=== PATIENT | male | born 1935 | race Caucasian/White ===

== ENCOUNTER → 2020-06-14 15:31 | Outpatient (BNVA) | payer MEDICARE, SELFPAY | PROVIDERS: PCP Internal Medicine Medical Oncology; Visit Provider Internal Medicine | DX: I48.20 Chronic atrial fibrillation, unspecified (principal); Z51.81 Encounter for therapeutic drug level monitoring; Z79.01 Long term (current) use of anticoagulants | CPT/HCPCS: 85610; 99211 ==

== ENCOUNTER → 2020-06-28 10:54 | Outpatient (BNVA) | payer MEDICARE, SELFPAY | PROVIDERS: PCP Internal Medicine Medical Oncology; Visit Provider Internal Medicine | DX: I48.20 Chronic atrial fibrillation, unspecified (principal); Z51.81 Encounter for therapeutic drug level monitoring; Z79.01 Long term (current) use of anticoagulants | CPT/HCPCS: 85610; 99211 ==

== ENCOUNTER → 2020-07-05 09:15 | Outpatient (BNVA) | payer MEDICARE, SELFPAY | PROVIDERS: PCP Internal Medicine Medical Oncology; Visit Provider Internal Medicine | DX: I48.20 Chronic atrial fibrillation, unspecified (principal); Z51.81 Encounter for therapeutic drug level monitoring; Z79.01 Long term (current) use of anticoagulants | CPT/HCPCS: 85610; 99211 ==

== ENCOUNTER → 2020-07-10 08:24 | Outpatient (REF) | payer MEDICARE, SELFPAY ==
--- NOTE | 2020-07-10 08:30 | CA_ITS ---
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 Normal LV systolic function with mild LVH with impaired relaxation filling pattern with elevated filling pressures 2. Bioprosthetic aortic valve present, leaflets not well visualized. Mean gradient 15 mm Hg with mild paravalvular regurgitation. Unchanged from before 3. Moderate biatrial enlargement 4. Normal RV systolic pressure 5. No pericardial effusion Findings Left Ventricle Normal left ventricular size and systolic function. There is mildly increased left ventricular wall thickness. The visually estimated ejection fraction is between 60-65%. There is paradoxical septal motion consistent with a right ventricular pacemaker. Spectral Doppler is indicative of an impaired relaxation filling pattern. Elevated filling pressures. E/E prime ratio is >15, consistent with elevated filling pressures. Right Ventricle Mildly increased right ventricular cavity size. There is normal right ventricular systolic function. There is a pacemaker wire seen in the right ventricle. Atria The left atrium is moderately dilated. Interatrial shunt cannot be excluded. The right atrium is moderately dilated. A pacemaker wire is identified in the right atrium. Aortic Valve A bioprosthetic aortic valve is present. The aortic valve was not well visualized. The peak aortic gradient is 26 mmHg.The mean gradient is 15 mmHg. The aortic valve area is 1.88 cm2. There is mild aortic valve regurgitation. the bioprosthetic valve is not well visualized, the valve is well seated with no abnormal rocking motion. There is mild regurgitation noted which is paravalvular in nature. The mean gradient across as the bioprosthetic valve is 15 mm of mercury, this is slightly elevated for bioprosthetic valve, may suggest patient prosthesis mismatch. Mitral Valve There is moderate anterior and severe posterior mitral leaflet thickening. There is severe mitral annular calcification. There is no mitral valve regurgitation. mild mitral stenosis cannot be entirely ruled out on this study Pulmonic Valve The pulmonic valve was not well visualized. Tricuspid Valve Likely normal tricuspid valve structure and function. There is mild tricuspid valve regurgitation. The right ventricular systolic pressure is normal. The right ventricular systolic pressure is 32 mmHg. Normal right atrial pressure. There is no evidence of pulmonary hypertension. Great Vessels All visible segments of the aorta are normal in size. The pulmonary artery was not well visualized. Venous The inferior vena cava is normal in size and collapses greater than 50% with inspiration. Pericardium/Pleural There is no evidence of pericardial effusion. Prior Study Comparison No significant change compared to prior study dated: 04/14/2020. Measurements 2D Linear Measurements IVSd: 1.20 0.6-0.9/0.6-1.0 cm LVIDd: 4.63 3.9-5.3/4.2-5.9 cm LVIDd Index: 2.50 2.4-3.2/2.2-3.1 cm/m2 LVIDs: 3.08 2.0-3.6 cm LVPWd: 1.20 0.7-1.1 cm Ao Root: 2.80 2.1-3.5 cm LA Diam: 3.80 2.7-3.8/3.0-4.0 cm LAIDs Index: 2.05 1.5-2.3 cm/m2 LV Mass: 258.10 67-162/88-224 g LV Mass Index: 139.52 43-95/49-115 g/m2 LVOT Diam: 2.00 3.0+(-)1.3 cm 2D Systolic Function EF 4C: 64.40 >55% EF 2C: 58.80 >55% EF BiP: 61.30 >55% Mitral Valve MV VTI: 0.57 MV Pk Miky: 1.85 MV Mn Miky: 1.04 MV Pk Grad: 14.00 MV Mn Grad: 5.00 MV Pk E: 1.00 MV PK A: 1.62 MV Decel Time: 232.00 E/A: 0.60 E'Lateral: 6.09 E'Medial: 4.74 E/E' Med: 21.10 E/E' Lat: 16.40 PHT: 95.00 MVA PHT: 2.32 MVA Continuity: 1.99 Decel [place]: 3.67 Aortic Valve AoV Pk Miky: 2.55 AoV Mn Miky: 1.79 AoV VTI: 0.61 AoV Pk Grad: 26.00 Aov Mn Grad: 15.00 KAVITA Cont.VTI: 1.88 LVOT LVOT Pk Miky: 1.56 LVOT Mn Miky: 1.16 LVOT VTI: 0.36 LVOT Pk Grad: 10.00 LVOT Mn Grad: 6.00 LVOT Diam: 2.00 LVOT Area: 3.14 Diastolic Function MV Pk E: 1.00 MV Pk A: 1.62 E/A: 0.60 E'Medial: 4.74 E/E' Med: 21.10 E' Laterial: 6.09 E/E' Lat: 16.40 Tricuspid Valve TR Pk Miky: 2.71 TR Pk Grad: 29.00 RA Press: 3.00 RVSP: 32.00 Great Vessels Aorta Ao Root-2D: 2.80 2.0-3.7 cm Ao Asc: 3.00 2.1-3.4 cm Pulmonary Valve PV Pk Miky: 1.38 Peak PV Grad: 8.00 Updated in Other Vendor System with Status of Final Miguel Zavala MD electronically signed on 07/11/2020 6:00:04 PM with status of Final
== END ==
LOC: HO.CARD 08:24
PROVIDERS: PCP Internal Medicine Medical Oncology; Visit Provider Internal Medicine Cardiovascular Disease
DX: T82.03XD Leakage of heart valve prosthesis, subsequent encounter (principal)
CPT/HCPCS: 93306

== ENCOUNTER 2020-07-24 12:11 | Outpatient (REF) | payer MEDICARE, SELFPAY ==
[2020-07-24 12:44] VITALS: BP 165/72; PULSE 81; RESP 16; O2SAT 98
[2020-07-24 12:47] VITALS: BMI 23.3
== END 2020-07-24 12:12 | disposition home or self-care (01) ==
LOC: HO.MS 12:11
PROVIDERS: PCP Internal Medicine Medical Oncology; Visit Provider Ophthalmology
PROC: (CPT 66821; principal; 2020-07-24 14:20)
DX: H26.491 Other secondary cataract, right eye (principal); H53.8 Other visual disturbances; I10 Essential (primary) hypertension; Z96.1 Presence of intraocular lens; Z95.0 Presence of cardiac pacemaker; Z95.3 Presence of xenogenic heart valve; Z79.01 Long term (current) use of anticoagulants; Z87.891 Personal history of nicotine dependence; Z79.899 Other long term (current) drug therapy; Z88.2 Allergy status to sulfonamides
CPT/HCPCS: 66821

== ENCOUNTER → 2020-07-26 13:56 | Outpatient (BNVA) | payer MEDICARE, SELFPAY | PROVIDERS: PCP Internal Medicine Medical Oncology; Visit Provider Internal Medicine | DX: I48.20 Chronic atrial fibrillation, unspecified (principal); Z51.81 Encounter for therapeutic drug level monitoring; Z79.01 Long term (current) use of anticoagulants | CPT/HCPCS: 85610; 99211 ==

== ENCOUNTER → 2020-07-31 14:56 | Outpatient (BNVA) | payer MEDICARE, SELFPAY | PROVIDERS: PCP Internal Medicine Medical Oncology; Visit Provider Internal Medicine Cardiovascular Disease | DX: I48.20 Chronic atrial fibrillation, unspecified (principal); I25.10 Atherosclerotic heart disease of native coronary artery without angina pectoris; Z95.2 Presence of prosthetic heart valve; T82.03XD Leakage of heart valve prosthesis, subsequent encounter | CPT/HCPCS: 99212 ==

== ENCOUNTER → 2020-08-09 08:55 | Outpatient (BNVA) | payer MEDICARE, SELFPAY | PROVIDERS: PCP Internal Medicine Medical Oncology; Visit Provider Internal Medicine | DX: I48.20 Chronic atrial fibrillation, unspecified (principal); Z51.81 Encounter for therapeutic drug level monitoring; Z79.01 Long term (current) use of anticoagulants | CPT/HCPCS: 85610; 99211 ==

== ENCOUNTER 2020-12-25 10:01 | Outpatient (REF) | payer MEDICARE, SELFPAY ==
[2020-12-25 11:02] LABS: MANUAL DIFF FLAG NO
[2020-12-25 11:12] LABS: Basophils Percent Auto 0.7 % (0-2); Eosinophils Absolute Auto 0.1 X10*3/uL (0.0-0.4); Eosinophils Percent Auto 2.4 % (0-4); Hematocrit 38.3 % (42-52); Hemoglobin 12.3 g/dl (14.0-18.0); Imm Gran Abs Auto 0.02 X10*3/uL (0.00-0.03); Imm Gran Pct Auto 0.3 % (0.0-0.4); Lymphocytes Absolute Auto 1.3 X10*3/uL (1.2-4.9); Lymphocytes Percent Auto 22.6 % (20-40); Mean Corpuscular HGB Conc 32.1 g/dl (31.0-36.0); Mean Corpuscular Hemoglobin 31.3 pg (27.0-33.0); Mean Corpuscular Volume 97.5 fL (80-98); Mean Platelet Volume 10.5 fL (9.4-12.4); Monocytes Absolute Auto 0.6 X10*3/uL (0.1-1.2); Monocytes Percent Auto 9.5 % (2-11); Neutrophils Absolute Auto 3.7 X10*3/uL (2.0-8.3); Neutrophils Percent Auto 64.5 % (45-73); Platelet Count 208 X10*3/uL (160-400); Red Blood Count 3.93 X10*6/uL (4.60-5.80); Red Cell Distribution Width 13.4 % (11.0-16.0); White Blood Count 5.8 X10*3/uL (4.8-10.8)
[2020-12-25 11:30] LABS: Alanine Aminotransferase 27 U/L (0-40); Albumin Level 4.2 g/dL (3.5-5.0); Alkaline Phosphatase 89 U/L (39-117); Anion Gap 13 (12-20); Aspartate Amino Transferase 25 U/L (5-37); Bilirubin Total 0.3 mg/dL (0.0-1.0); Blood Urea Nitrogen 26 mg/dL (9-16); Calcium 9.2 mg/dL (8.4-10.2); Carbon Dioxide 26 mmol/L (22-29); Chloride 107 mmol/L (96-108); Cholesterol 168 mg/dL; Estimated Glomerular Filt Rate 57; Glucose Random 99 mg/dL (60-115); HDL Cholesterol 58 mg/dL; LDL Cholesterol Calculated 94 mg/dl; Potassium 4.8 mmol/L (3.3-5.1); Sodium 141 mmol/L (135-145); Total Protein 6.6 g/dL (6.5-8.0); Triglycerides 82 mg/dL
[2020-12-25 11:47] LABS: Prostate Specific Antigen < 0.05 ng/mL (<0.05-4.0)
== END 2020-12-25 10:02 | disposition home or self-care (01) ==
LOC: HO.LAB 10:01
PROVIDERS: PCP Internal Medicine Medical Oncology; Visit Provider Internal Medicine Medical Oncology
DX: E78.2 Mixed hyperlipidemia (principal); I10 Essential (primary) hypertension; Z12.5 Encounter for screening for malignant neoplasm of prostate
CPT/HCPCS: 36415; 80053; 80061; 84153; 85025

== ENCOUNTER → 2021-01-04 08:07 | Outpatient (BNVA) | payer MEDICARE, SELFPAY | PROVIDERS: PCP Internal Medicine Medical Oncology; Visit Provider Internal Medicine | DX: I48.20 Chronic atrial fibrillation, unspecified (principal); Z51.81 Encounter for therapeutic drug level monitoring; Z79.01 Long term (current) use of anticoagulants | CPT/HCPCS: 85610; 99211 ==

== ENCOUNTER → 2021-01-15 09:56 | Outpatient (BNVA) | payer MEDICARE, SELFPAY | PROVIDERS: PCP Internal Medicine Medical Oncology; Visit Provider Internal Medicine Cardiovascular Disease | DX: I25.10 Atherosclerotic heart disease of native coronary artery without angina pectoris (principal); I48.20 Chronic atrial fibrillation, unspecified; T82.03XD Leakage of heart valve prosthesis, subsequent encounter; Z79.01 Long term (current) use of anticoagulants; Z95.2 Presence of prosthetic heart valve | CPT/HCPCS: 93005; 99212 ==

== ENCOUNTER → 2021-02-01 08:57 | Outpatient (BNVA) | payer MEDICARE, SELFPAY | PROVIDERS: PCP Internal Medicine Medical Oncology; Visit Provider Internal Medicine | DX: I48.20 Chronic atrial fibrillation, unspecified (principal); Z51.81 Encounter for therapeutic drug level monitoring; Z79.01 Long term (current) use of anticoagulants | CPT/HCPCS: 85610; 99211 ==

== ENCOUNTER → 2021-02-20 09:02 | Outpatient (BNVA) | payer MEDICARE, SELFPAY | PROVIDERS: PCP Internal Medicine Medical Oncology; Visit Provider Internal Medicine | DX: I48.20 Chronic atrial fibrillation, unspecified (principal); Z51.81 Encounter for therapeutic drug level monitoring; Z79.01 Long term (current) use of anticoagulants | CPT/HCPCS: 85610; 99211 ==

== ENCOUNTER 2021-03-12 08:05 | Outpatient (REF) | payer MEDICARE, SELFPAY ==
[2021-03-12 08:48] LABS: MANUAL DIFF FLAG NO
[2021-03-12 08:59] LABS: Basophils Percent Auto 0.3 % (0-2); Eosinophils Absolute Auto 0.2 X10*3/uL (0.0-0.4); Eosinophils Percent Auto 2.8 % (0-4); Hematocrit 39.8 % (42-52); Hemoglobin 13.1 g/dl (14.0-18.0); Imm Gran Abs Auto 0.02 X10*3/uL (0.00-0.03); Imm Gran Pct Auto 0.3 % (0.0-0.4); Lymphocytes Absolute Auto 1.1 X10*3/uL (1.2-4.9); Lymphocytes Percent Auto 19.5 % (20-40); Mean Corpuscular HGB Conc 32.9 g/dl (31.0-36.0); Mean Corpuscular Hemoglobin 31.9 pg (27.0-33.0); Mean Corpuscular Volume 96.8 fL (80-98); Mean Platelet Volume 10.7 fL (9.4-12.4); Monocytes Absolute Auto 0.5 X10*3/uL (0.1-1.2); Monocytes Percent Auto 8.7 % (2-11); Neutrophils Absolute Auto 3.9 X10*3/uL (2.0-8.3); Neutrophils Percent Auto 68.4 % (45-73); Platelet Count 183 X10*3/uL (160-400); Red Blood Count 4.11 X10*6/uL (4.60-5.80); Red Cell Distribution Width 12.6 % (11.0-16.0); White Blood Count 5.8 X10*3/uL (4.8-10.8)
[2021-03-12 09:28] LABS: Alanine Aminotransferase 25 U/L (0-40); Albumin Level 4.2 g/dL (3.5-5.0); Alkaline Phosphatase 77 U/L (39-117); Anion Gap 14 (12-20); Aspartate Amino Transferase 26 U/L (5-37); Bilirubin Total 0.7 mg/dL (0.0-1.0); Blood Urea Nitrogen 23 mg/dL (9-16); Calcium 9.5 mg/dL (8.4-10.2); Carbon Dioxide 25 mmol/L (22-29); Chloride 106 mmol/L (96-108); Cholesterol 191 mg/dL; Estimated Glomerular Filt Rate 54; Glucose Fasting 105 mg/dL (60-99); HDL Cholesterol 55 mg/dL; LDL Cholesterol Calculated 106 mg/dl; Potassium 4.7 mmol/L (3.3-5.1); Sodium 140 mmol/L (135-145); Total Protein 6.6 g/dL (6.5-8.0); Triglycerides 151 mg/dL
[2021-03-12 09:54] LABS: Prostate Specific Antigen < 0.05 ng/mL (<0.05-4.0)
== END 2021-03-12 08:06 | disposition home or self-care (01) ==
LOC: HO.LAB 08:05
PROVIDERS: PCP Internal Medicine Medical Oncology; Visit Provider Internal Medicine Medical Oncology
DX: Z12.5 Encounter for screening for malignant neoplasm of prostate (principal); E78.2 Mixed hyperlipidemia; I10 Essential (primary) hypertension
CPT/HCPCS: 36415; 80053; 80061; 84153; 85025

== ENCOUNTER → 2021-03-26 09:20 | Outpatient (BNVA) | payer MEDICARE, SELFPAY | PROVIDERS: PCP Internal Medicine Medical Oncology; Visit Provider Internal Medicine | DX: I48.20 Chronic atrial fibrillation, unspecified (principal); Z51.81 Encounter for therapeutic drug level monitoring; Z79.01 Long term (current) use of anticoagulants | CPT/HCPCS: 85610; 99211 ==

== ENCOUNTER 2021-04-03 07:52 | Outpatient (REF) | payer MEDICARE, SELFPAY ==
[2021-04-03 08:46] LABS: MANUAL DIFF FLAG NO
[2021-04-03 08:50] LABS: Basophils Percent Auto 0.5 % (0-2); Eosinophils Absolute Auto 0.2 X10*3/uL (0.0-0.4); Eosinophils Percent Auto 4.2 % (0-4); Hematocrit 40.2 % (42-52); Hemoglobin 13.3 g/dl (14.0-18.0); Imm Gran Abs Auto 0.01 X10*3/uL (0.00-0.03); Imm Gran Pct Auto 0.2 % (0.0-0.4); Lymphocytes Absolute Auto 1.3 X10*3/uL (1.2-4.9); Lymphocytes Percent Auto 22.8 % (20-40); Mean Corpuscular HGB Conc 33.1 g/dl (31.0-36.0); Mean Corpuscular Volume 96.9 fL (80-98); Mean Platelet Volume 10.6 fL (9.4-12.4); Monocytes Absolute Auto 0.5 X10*3/uL (0.1-1.2); Monocytes Percent Auto 9.3 % (2-11); Neutrophils Absolute Auto 3.6 X10*3/uL (2.0-8.3); Platelet Count 186 X10*3/uL (160-400); Red Blood Count 4.15 X10*6/uL (4.60-5.80); Red Cell Distribution Width 12.8 % (11.0-16.0); White Blood Count 5.8 X10*3/uL (4.8-10.8)
[2021-04-03 09:51] LABS: Alanine Aminotransferase 22 U/L (0-40); Albumin Level 4.2 g/dL (3.5-5.0); Alkaline Phosphatase 73 U/L (39-117); Anion Gap 14 (12-20); Aspartate Amino Transferase 25 U/L (5-37); Bilirubin Total 0.7 mg/dL (0.0-1.0); Blood Urea Nitrogen 22 mg/dL (9-16); Calcium 9.6 mg/dL (8.4-10.2); Carbon Dioxide 25 mmol/L (22-29); Chloride 106 mmol/L (96-108); Cholesterol 201 mg/dL; Estimated Glomerular Filt Rate 55; Glucose Fasting 108 mg/dL (60-99); HDL Cholesterol 62 mg/dL; LDL Cholesterol Calculated 111 mg/dl; Potassium 4.7 mmol/L (3.3-5.1); Sodium 140 mmol/L (135-145); Total Protein 6.7 g/dL (6.5-8.0); Triglycerides 141 mg/dL
== END 2021-04-03 07:53 | disposition home or self-care (01) ==
LOC: HO.LAB 07:52
PROVIDERS: PCP Internal Medicine Medical Oncology; Visit Provider Internal Medicine Medical Oncology
DX: I10 Essential (primary) hypertension (principal); E78.2 Mixed hyperlipidemia
CPT/HCPCS: 36415; 80053; 80061; 85025

== ENCOUNTER → 2021-04-24 08:56 | Outpatient (BNVA) | payer MEDICARE, SELFPAY | PROVIDERS: PCP Internal Medicine Medical Oncology; Visit Provider Internal Medicine | DX: I48.20 Chronic atrial fibrillation, unspecified (principal); Z51.81 Encounter for therapeutic drug level monitoring; Z79.01 Long term (current) use of anticoagulants | CPT/HCPCS: 85610; 99211 ==

== ENCOUNTER → 2021-04-30 08:55 | Outpatient (BNVA) | payer MEDICARE, SELFPAY | PROVIDERS: PCP Internal Medicine Medical Oncology; Visit Provider Internal Medicine | DX: I48.20 Chronic atrial fibrillation, unspecified (principal); Z51.81 Encounter for therapeutic drug level monitoring; Z79.01 Long term (current) use of anticoagulants | CPT/HCPCS: 85610; 99211 ==

== ENCOUNTER → 2021-05-02 08:50 | Outpatient (BNVA) | payer MEDICARE, SELFPAY | PROVIDERS: PCP Internal Medicine Medical Oncology; Visit Provider Internal Medicine | DX: I48.20 Chronic atrial fibrillation, unspecified (principal); Z51.81 Encounter for therapeutic drug level monitoring; Z79.01 Long term (current) use of anticoagulants | CPT/HCPCS: 85610; 99211 ==

== ENCOUNTER → 2021-05-16 08:28 | Outpatient (BNVA) | payer MEDICARE, SELFPAY | PROVIDERS: PCP Internal Medicine Medical Oncology; Visit Provider Internal Medicine | DX: I48.20 Chronic atrial fibrillation, unspecified (principal); Z51.81 Encounter for therapeutic drug level monitoring; Z79.01 Long term (current) use of anticoagulants | CPT/HCPCS: 85610; 99211 ==

== ENCOUNTER → 2021-06-05 08:47 | Outpatient (BNVA) | payer MEDICARE, SELFPAY | PROVIDERS: PCP Internal Medicine Medical Oncology; Visit Provider Internal Medicine | DX: I48.20 Chronic atrial fibrillation, unspecified (principal); Z51.81 Encounter for therapeutic drug level monitoring; Z79.01 Long term (current) use of anticoagulants | CPT/HCPCS: 85610; 99211 ==

== ENCOUNTER → 2021-07-03 09:13 | Outpatient (BNVA) | payer MEDICARE, SELFPAY | PROVIDERS: PCP Internal Medicine Medical Oncology; Visit Provider Internal Medicine | DX: I48.20 Chronic atrial fibrillation, unspecified (principal); Z51.81 Encounter for therapeutic drug level monitoring; Z79.01 Long term (current) use of anticoagulants | CPT/HCPCS: 85610; 99211 ==

== ENCOUNTER → 2021-07-17 08:47 | Outpatient (BNVA) | payer MEDICARE, SELFPAY | PROVIDERS: PCP Internal Medicine Medical Oncology; Visit Provider Internal Medicine | DX: I48.20 Chronic atrial fibrillation, unspecified (principal); Z51.81 Encounter for therapeutic drug level monitoring; Z79.01 Long term (current) use of anticoagulants | CPT/HCPCS: 85610; 99211 ==

== ENCOUNTER → 2021-07-20 13:28 | Outpatient (BNVA) | payer MEDICARE, SELFPAY | PROVIDERS: PCP Internal Medicine Medical Oncology; Visit Provider Nurse Practitioner Family | DX: Z45.018 Encounter for adjustment and management of other part of cardiac pacemaker (principal); I25.10 Atherosclerotic heart disease of native coronary artery without angina pectoris; I35.0 Nonrheumatic aortic (valve) stenosis; I48.20 Chronic atrial fibrillation, unspecified; T82.03XD Leakage of heart valve prosthesis, subsequent encounter; Z95.2 Presence of prosthetic heart valve | CPT/HCPCS: 99212 ==

== ENCOUNTER → 2021-08-09 08:49 | Outpatient (BNVA) | payer MEDICARE, SELFPAY | PROVIDERS: PCP Internal Medicine Medical Oncology; Visit Provider Internal Medicine | DX: I48.20 Chronic atrial fibrillation, unspecified (principal); Z51.81 Encounter for therapeutic drug level monitoring; Z79.01 Long term (current) use of anticoagulants | CPT/HCPCS: 85610; 99211 ==

== ENCOUNTER 2021-12-31 08:18 | Outpatient (REF) | payer MEDICARE, SELFPAY ==
[2021-12-31 08:37] LABS: MANUAL DIFF FLAG NO
[2021-12-31 08:42] LABS: Basophils Percent Auto 0.5 % (0-2); Eosinophils Absolute Auto 0.2 X10*3/uL (0.0-0.4); Eosinophils Percent Auto 3.2 % (0-4); Hematocrit 39.7 % (42.0-52.0); Hemoglobin 12.8 g/dl (14.0-18.0); Imm Gran Abs Auto 0.02 X10*3/uL (0.00-0.03); Imm Gran Pct Auto 0.4 % (0.0-0.4); Lymphocytes Absolute Auto 1.2 X10*3/uL (1.2-4.9); Lymphocytes Percent Auto 20.8 % (20-40); Mean Corpuscular HGB Conc 32.2 g/dl (31.0-36.0); Mean Corpuscular Hemoglobin 31.7 pg (27.0-33.0); Mean Corpuscular Volume 98.3 fL (80.0-98.0); Mean Platelet Volume 9.9 fL (9.4-12.4); Monocytes Absolute Auto 0.5 X10*3/uL (0.1-1.2); Monocytes Percent Auto 8.8 % (2-11); Neutrophils Absolute Auto 3.8 x10*3/uL (2.0-8.3); Neutrophils Percent Auto 66.3 % (45-73); Platelet Count 179 X10*3/uL (160-400); Red Blood Count 4.04 X10*6/uL (4.60-5.80); Red Cell Distribution Width 12.8 % (11.0-16.0); White Blood Count 5.7 X10*3/uL (4.8-10.8)
[2021-12-31 10:00] LABS: Alanine Aminotransferase 31 U/L (0-40); Albumin Level 4.1 g/dL (3.5-5.0); Alkaline Phosphatase 66 U/L (39-117); Anion Gap 11 (12-20); Aspartate Amino Transferase 25 U/L (5-37); Bilirubin Total 0.6 mg/dL (0.0-1.0); Blood Urea Nitrogen 24 mg/dL (9-16); Calcium 9.7 mg/dL (8.4-10.2); Carbon Dioxide 27 mmol/L (22-29); Chloride 104 mmol/L (96-108); Cholesterol 185 mg/dL; Estimated Glomerular Filt Rate 56; Glucose Fasting 99 mg/dL (60-99); HDL Cholesterol 61 mg/dL; LDL Cholesterol Calculated 98 mg/dl; Potassium 4.5 mmol/L (3.3-5.1); Sodium 137 mmol/L (135-145); Total Protein 6.6 g/dL (6.5-8.0); Triglycerides 134 mg/dL
[2021-12-31 10:34] LABS: PSA,Total (Free>4and<10) < 0.05 ng/mL (0.00-4.00)
== END 2021-12-31 08:19 | disposition home or self-care (01) ==
LOC: HO.LAB 08:18
PROVIDERS: PCP Internal Medicine Medical Oncology; Visit Provider Internal Medicine Medical Oncology
DX: Z12.5 Encounter for screening for malignant neoplasm of prostate (principal); E78.2 Mixed hyperlipidemia; Z85.46 Personal history of malignant neoplasm of prostate
CPT/HCPCS: 36415; 80053; 80061; 84153; 85025

== ENCOUNTER → 2022-01-14 12:33 | Outpatient (BNVA) | payer MEDICARE, SELFPAY | PROVIDERS: PCP Internal Medicine Medical Oncology; Referring Provider Internal Medicine Medical Oncology; Visit Provider Internal Medicine Cardiovascular Disease | DX: I48.20 Chronic atrial fibrillation, unspecified (principal); T82.03XA Leakage of heart valve prosthesis, initial encounter; Z95.0 Presence of cardiac pacemaker; Z95.2 Presence of prosthetic heart valve; Z51.81 Encounter for therapeutic drug level monitoring; Z79.01 Long term (current) use of anticoagulants | CPT/HCPCS: 85610; 93005; 99211; 99212 ==

== ENCOUNTER → 2022-02-05 09:17 | Outpatient (BNVA) | payer MEDICARE, SELFPAY | PROVIDERS: PCP Internal Medicine Medical Oncology; Visit Provider Internal Medicine | DX: I48.20 Chronic atrial fibrillation, unspecified (principal); Z79.01 Long term (current) use of anticoagulants; Z51.81 Encounter for therapeutic drug level monitoring | CPT/HCPCS: 85610; 99211 ==

== ENCOUNTER → 2022-03-05 08:57 | Outpatient (BNVA) | payer MEDICARE, SELFPAY | PROVIDERS: PCP Internal Medicine Medical Oncology; Visit Provider Internal Medicine | DX: I48.20 Chronic atrial fibrillation, unspecified (principal); Z79.01 Long term (current) use of anticoagulants; Z51.81 Encounter for therapeutic drug level monitoring | CPT/HCPCS: 85610; 99211 ==

== ENCOUNTER 2022-04-02 08:44 | Outpatient (REF) | payer MEDICARE, SELFPAY ==
[2022-04-02 09:05] LABS: MANUAL DIFF FLAG NO
[2022-04-02 09:42] LABS: Basophils Absolute Auto 0.1 X10*3/uL (0.0-0.2); Eosinophils Absolute Auto 0.2 X10*3/uL (0.0-0.4); Eosinophils Percent Auto 4.4 % (0-4); Hematocrit 40.4 % (42.0-52.0); Hemoglobin 13.3 g/dl (14.0-18.0); Imm Gran Abs Auto 0.01 X10*3/uL (0.00-0.03); Imm Gran Pct Auto 0.2 % (0.0-0.4); Lymphocytes Absolute Auto 1.3 X10*3/uL (1.2-4.9); Lymphocytes Percent Auto 26.3 % (20-40); Mean Corpuscular HGB Conc 32.9 g/dl (31.0-36.0); Mean Corpuscular Hemoglobin 32.1 pg (27.0-33.0); Mean Corpuscular Volume 97.6 fL (80.0-98.0); Mean Platelet Volume 10.2 fL (9.4-12.4); Monocytes Absolute Auto 0.6 X10*3/uL (0.1-1.2); Monocytes Percent Auto 11.8 % (2-11); Neutrophils Absolute Auto 2.8 x10*3/uL (2.0-8.3); Neutrophils Percent Auto 56.3 % (45-73); Platelet Count 208 X10*3/uL (160-400); Red Blood Count 4.14 X10*6/uL (4.60-5.80); Red Cell Distribution Width 12.8 % (11.0-16.0)
[2022-04-02 10:07] LABS: Alanine Aminotransferase 24 U/L (0-40); Albumin Level 4.3 g/dL (3.5-5.0); Alkaline Phosphatase 68 U/L (39-117); Anion Gap 13 (12-20); Aspartate Amino Transferase 23 U/L (5-37); Bilirubin Total 0.7 mg/dL (0.0-1.0); Blood Urea Nitrogen 28 mg/dL (9-16); Calcium 9.6 mg/dL (8.4-10.2); Carbon Dioxide 26 mmol/L (22-29); Chloride 105 mmol/L (96-108); Cholesterol 195 mg/dL; Estimated Glomerular Filt Rate 59; Glucose Fasting 114 mg/dL (60-99); HDL Cholesterol 61 mg/dL; LDL Cholesterol Calculated 103 mg/dl; Potassium 4.5 mmol/L (3.3-5.1); Sodium 139 mmol/L (135-145); Total Protein 6.7 g/dL (6.5-8.0); Triglycerides 159 mg/dL
[2022-04-02 10:35] LABS: Prostate Specific Antigen < 0.05 ng/mL (<0.05-4.0)
== END 2022-04-02 08:45 | disposition home or self-care (01) ==
LOC: HO.LAB 08:44
PROVIDERS: PCP Internal Medicine Medical Oncology; Visit Provider Internal Medicine Medical Oncology
DX: Z12.5 Encounter for screening for malignant neoplasm of prostate (principal); I10 Essential (primary) hypertension; E78.2 Mixed hyperlipidemia; Z79.01 Long term (current) use of anticoagulants; Z85.46 Personal history of malignant neoplasm of prostate
CPT/HCPCS: 36415; 80053; 80061; 84153; 85025

== ENCOUNTER → 2022-04-04 09:12 | Outpatient (BNVA) | payer MEDICARE, SELFPAY | PROVIDERS: PCP Internal Medicine Medical Oncology; Visit Provider Internal Medicine | DX: I48.20 Chronic atrial fibrillation, unspecified (principal); Z51.81 Encounter for therapeutic drug level monitoring; Z79.01 Long term (current) use of anticoagulants | CPT/HCPCS: 85610; 99211 ==

== ENCOUNTER → 2022-05-02 08:51 | Outpatient (BNVA) | payer MEDICARE, SELFPAY | PROVIDERS: PCP Internal Medicine Medical Oncology; Visit Provider Internal Medicine | DX: I48.20 Chronic atrial fibrillation, unspecified (principal); Z51.81 Encounter for therapeutic drug level monitoring; Z79.01 Long term (current) use of anticoagulants | CPT/HCPCS: 85610; 99211 ==

== ENCOUNTER → 2022-05-23 13:11 | Outpatient (BNVA) | payer MEDICARE, SELFPAY | PROVIDERS: PCP Internal Medicine Medical Oncology; Visit Provider Internal Medicine | DX: I48.20 Chronic atrial fibrillation, unspecified (principal); Z79.01 Long term (current) use of anticoagulants; Z51.81 Encounter for therapeutic drug level monitoring | CPT/HCPCS: 85610; 99211 ==

== ENCOUNTER → 2022-05-28 09:17 | Outpatient (REF) | payer MEDICARE, SELFPAY ==
--- NOTE | 2022-05-28 09:24 | CA_ITS ---
Transthoracic Echocardiogram Patient (Last, First, Middle): Donny Hale E Gender: Male Date of : 1935 Age: 86 Procedure Date: 05/28/2022 Procedure Type: Transthoracic Echocardiogram Location: OP Height: 175.26 cm Weight: 77.11 kg BSA: 1.93 m2 Heart Rate: bpm BP: 118 / 60 mmHg Drip Molder: Referring MD: Arnaldo Carlson MD Dry Room Operator: Arnaldo Carlson MD Symptoms: T82.03XA - Leakage of heart valve prosthesis, initial encounter Study Quality: Fair ECG Rhythm: Sinus Conclusions: - Normal left ventricular size and systolic function. There is mildly increased left ventricular wall thickness. The visually estimated ejection fraction is between 55-60%. - Mildly increased right ventricular cavity size. There is normal right ventricular systolic function. - A bioprosthetic aortic valve is present. The peak aortic velocity is 2.41 m/s. The mean gradient is 13 mmHg. Mild paravalvular regurgitation is noted. Findings Left Ventricle Normal left ventricular size and systolic function. There is mildly increased left ventricular wall thickness. The visually estimated ejection fraction is between 55-60%. There is no evidence of regional wall motion abnormalities. Diastolic function is indeterminate on the basis of available data. Right Ventricle Mildly increased right ventricular cavity size. There is normal right ventricular systolic function. There is a pacemaker wire seen in the right ventricle. Atria The left atrium is severely dilated. Aortic Valve A bioprosthetic aortic valve is present. The peak aortic velocity is 2.41 m/s. The mean gradient is 13 mmHg. Mild paravalvular regurgitation is noted. Mitral Valve There is severe mitral annular calcification. There is mild mitral valve regurgitation. There is no mitral valve stenosis. Pulmonic Valve Normal pulmonic valve structure and function. There is trace pulmonic valve regurgitation. Tricuspid Valve Normal tricuspid valve structure. There is mild tricuspid valve regurgitation. Normal right atrial pressure. There is no evidence of pulmonary hypertension. Great Vessels All visible segments of the aorta are normal in size. The visualized portions of the pulmonary artery and branches are normal. Venous The inferior vena cava is normal in size and collapses greater than 50% with inspiration. Pericardium/Pleural There is no evidence of pericardial effusion. Prior Study Comparison Changes noted compared to prior study. RV mildly dilated. No significant change in the paravalvular leak. Measurements 2D Linear Measurements IVSd: 1.25 0.6-0.9/0.6-1.0 cm LVIDd: 4.97 3.9-5.3/4.2-5.9 cm LVIDd Index: 2.58 2.4-3.2/2.2-3.1 cm/m2 LVIDs: 3.35 2.0-3.6 cm LVPWd: 1.23 0.7-1.1 cm Ao Root: 3.00 2.1-3.5 cm LA Diam: 4.30 2.7-3.8/3.0-4.0 cm LAIDs Index: 2.23 1.5-2.3 cm/m2 LV Mass: 302.36 67-162/88-224 g LV Mass Index: 156.66 43-95/49-115 g/m2 LVOT Diam: 2.00 3.0+(-)1.3 cm Mitral Valve MV VTI: 0.62 MV Pk Miky: 1.46 MV Mn Miky: 0.80 MV Pk Grad: 9.00 MV Mn Grad: 3.00 MV Pk E: 1.14 MV PK A: 1.44 MV Decel Time: 345.00 E/A: 0.80 E'Lateral: 4.68 E'Medial: 4.03 E/E' Med: 28.30 E/E' Lat: 24.40 PHT: 101.00 MVA PHT: 2.18 MVA Continuity: 1.56 Decel [place]: 3.30 Aortic Valve AoV Pk Miky: 2.41 AoV Mn Miky: 1.65 AoV VTI: 0.59 AoV Pk Grad: 23.00 Aov Mn Grad: 13.00 KAVITA Cont.VTI: 1.63 LVOT LVOT Pk Miky: 1.20 LVOT Mn Miky: 0.81 LVOT VTI: 0.31 LVOT Pk Grad: 6.00 LVOT Mn Grad: 3.00 LVOT Diam: 2.00 LVOT Area: 3.14 Diastolic Function MV Pk E: 1.14 MV Pk A: 1.44 E/A: 0.80 E'Medial: 4.03 E/E' Med: 28.30 E' Laterial: 4.68 E/E' Lat: 24.40 Right Ventricle TAPSE (mm): 33.00 TVS' Miky: 13.00 Tricuspid Valve TR Pk Miky: 2.49 TR Pk Grad: 25.00 RA Press: 3.00 RVSP: 28.00 Great Vessels Aorta Ao Root-2D: 3.00 2.0-3.7 cm Ao Asc: 3.30 2.1-3.4 cm Pulmonary Valve PV Pk Miky: 1.11 Peak PV Grad: 5.00 Updated in Other Vendor System with Status of Final Arnaldo Carlson MD electronically signed on 05/30/2022 7:48:29 PM with status of Final
== END ==
LOC: HO.CARD 09:17
PROVIDERS: Visit Provider Internal Medicine Cardiovascular Disease
DX: T82.03XA Leakage of heart valve prosthesis, initial encounter (principal)
CPT/HCPCS: 93306

== ENCOUNTER → 2022-06-20 14:23 | Outpatient (BNVA) | payer MEDICARE, SELFPAY | PROVIDERS: PCP Internal Medicine Medical Oncology; Referring Provider Internal Medicine Medical Oncology; Visit Provider Internal Medicine Cardiovascular Disease | DX: I25.10 Atherosclerotic heart disease of native coronary artery without angina pectoris (principal); I48.20 Chronic atrial fibrillation, unspecified; T82.03XD Leakage of heart valve prosthesis, subsequent encounter; Z95.2 Presence of prosthetic heart valve; Z95.0 Presence of cardiac pacemaker | CPT/HCPCS: 99212 ==

== ENCOUNTER → 2022-07-03 08:57 | Outpatient (BNVA) | payer MEDICARE, SELFPAY | PROVIDERS: PCP Internal Medicine Medical Oncology; Visit Provider Internal Medicine | DX: I48.20 Chronic atrial fibrillation, unspecified (principal); Z79.01 Long term (current) use of anticoagulants; Z51.81 Encounter for therapeutic drug level monitoring | CPT/HCPCS: 85610; 99211 ==

== ENCOUNTER 2022-07-08 09:00 | Outpatient (REF) | payer MEDICARE, SELFPAY ==
[2022-07-08 09:12] LABS: MANUAL DIFF FLAG NO
[2022-07-08 10:13] LABS: Basophils Percent Auto 0.7 % (0-2); Eosinophils Absolute Auto 0.2 X10*3/uL (0.0-0.4); Eosinophils Percent Auto 2.8 % (0-4); Hematocrit 43.3 % (42.0-52.0); Imm Gran Abs Auto 0.03 X10*3/uL (0.00-0.03); Imm Gran Pct Auto 0.5 % (0.0-0.4); Lymphocytes Absolute Auto 1.4 X10*3/uL (1.2-4.9); Lymphocytes Percent Auto 22.2 % (20-40); Mean Corpuscular HGB Conc 32.3 g/dl (31.0-36.0); Mean Corpuscular Hemoglobin 31.5 pg (27.0-33.0); Mean Corpuscular Volume 97.3 fL (80.0-98.0); Mean Platelet Volume 10.3 fL (9.4-12.4); Monocytes Absolute Auto 0.5 X10*3/uL (0.1-1.2); Monocytes Percent Auto 8.7 % (2-11); Neutrophils Percent Auto 65.1 % (45-73); Platelet Count 230 X10*3/uL (160-400); Red Blood Count 4.45 X10*6/uL (4.60-5.80); Red Cell Distribution Width 12.5 % (11.0-16.0); White Blood Count 6.1 X10*3/uL (4.8-10.8)
[2022-07-08 10:34] LABS: Alanine Aminotransferase 34 U/L (0-40); Albumin Level 4.5 g/dL (3.5-5.0); Alkaline Phosphatase 83 U/L (39-117); Anion Gap 15 (12-20); Aspartate Amino Transferase 33 U/L (5-37); Bilirubin Total 0.4 mg/dL (0.0-1.0); Blood Urea Nitrogen 25 mg/dL (9-16); Calcium 9.8 mg/dL (8.4-10.2); Carbon Dioxide 25 mmol/L (22-29); Chloride 103 mmol/L (96-108); Cholesterol 238 mg/dL; Estimated Glomerular Filt Rate 56; Glucose Fasting 103 mg/dL (60-99); HDL Cholesterol 67 mg/dL; LDL Cholesterol Calculated 132 mg/dl; Potassium 4.8 mmol/L (3.3-5.1); Sodium 138 mmol/L (135-145); Total Protein 7.2 g/dL (6.5-8.0); Triglycerides 199 mg/dL
[2022-07-08 10:58] LABS: Prostate Specific Antigen < 0.10 ng/mL (<0.05-4.0)
== END 2022-07-08 09:01 | disposition home or self-care (01) ==
LOC: HO.LAB 09:00
PROVIDERS: PCP Internal Medicine Medical Oncology; Visit Provider Internal Medicine Medical Oncology
DX: I10 Essential (primary) hypertension (principal); E78.2 Mixed hyperlipidemia; Z85.46 Personal history of malignant neoplasm of prostate; Z12.5 Encounter for screening for malignant neoplasm of prostate
CPT/HCPCS: 36415; 80053; 80061; 84153; 85025

== ENCOUNTER → 2022-07-29 09:05 | Outpatient (BNVA) | payer MEDICARE, SELFPAY | PROVIDERS: PCP Internal Medicine Medical Oncology; Visit Provider Internal Medicine | DX: I48.20 Chronic atrial fibrillation, unspecified (principal); Z79.01 Long term (current) use of anticoagulants; Z51.81 Encounter for therapeutic drug level monitoring | CPT/HCPCS: 85610; 99211 ==

== ENCOUNTER → 2023-01-07 08:51 | Outpatient (BNVA) | payer MEDICARE, SELFPAY | PROVIDERS: PCP Internal Medicine Medical Oncology; Visit Provider Internal Medicine | DX: I48.20 Chronic atrial fibrillation, unspecified (principal); Z79.01 Long term (current) use of anticoagulants; Z51.81 Encounter for therapeutic drug level monitoring | CPT/HCPCS: 85610; 99211 ==

== ENCOUNTER 2023-01-16 09:21 | Outpatient (REF) | payer MEDICARE, SELFPAY ==
[2023-01-16 09:31] LABS: MANUAL DIFF FLAG NO
[2023-01-16 10:00] LABS: Basophils Percent Auto 0.5 % (0-2); Eosinophils Absolute Auto 0.2 X10*3/uL (0.0-0.4); Eosinophils Percent Auto 2.2 % (0-4); Hemoglobin 13.5 g/dl (14.0-18.0); Imm Gran Abs Auto 0.04 X10*3/uL (0.00-0.03); Imm Gran Pct Auto 0.5 % (0.0-0.4); Lymphocytes Absolute Auto 1.4 X10*3/uL (1.2-4.9); Lymphocytes Percent Auto 19.3 % (20-40); Mean Corpuscular HGB Conc 32.9 g/dl (31.0-36.0); Mean Corpuscular Volume 97.2 fL (80.0-98.0); Mean Platelet Volume 10.3 fL (9.4-12.4); Monocytes Absolute Auto 0.6 X10*3/uL (0.1-1.2); Monocytes Percent Auto 8.5 % (2-11); Platelet Count 220 X10*3/uL (160-400); Red Blood Count 4.22 X10*6/uL (4.60-5.80); White Blood Count 7.3 X10*3/uL (4.8-10.8)
[2023-01-16 10:34] LABS: Alanine Aminotransferase 31 U/L (0-40); Albumin Level 4.1 g/dL (3.5-5.0); Alkaline Phosphatase 90 U/L (39-117); Anion Gap 14 (12-20); Aspartate Amino Transferase 34 U/L (5-37); Bilirubin Total 0.6 mg/dL (0.0-1.0); Blood Urea Nitrogen 20 mg/dL (9-16); Calcium 9.7 mg/dL (8.4-10.2); Carbon Dioxide 25 mmol/L (22-29); Chloride 106 mmol/L (96-108); Cholesterol 207 mg/dL; Estimated Glomerular Filt Rate 52; Glucose Fasting 100 mg/dL (60-99); HDL Cholesterol 55 mg/dL; LDL Cholesterol Calculated 120 mg/dl; Potassium 4.8 mmol/L (3.3-5.1); Sodium 140 mmol/L (135-145); Total Protein 6.8 g/dL (6.5-8.0); Triglycerides 164 mg/dL
[2023-01-16 10:53] LABS: Prostate Specific Antigen < 0.10 ng/mL (<0.05-4.0)
== END 2023-01-16 09:22 | disposition home or self-care (01) ==
LOC: HO.LAB 09:21
PROVIDERS: PCP Internal Medicine Medical Oncology; Visit Provider Internal Medicine Medical Oncology
DX: E78.2 Mixed hyperlipidemia (principal); Z85.46 Personal history of malignant neoplasm of prostate; I10 Essential (primary) hypertension; Z12.5 Encounter for screening for malignant neoplasm of prostate
CPT/HCPCS: 36415; 80053; 80061; 84153; 85025

== ENCOUNTER → 2023-01-29 11:32 | Outpatient (BNVA) | payer MEDICARE, SELFPAY | PROVIDERS: PCP Internal Medicine Medical Oncology; Referring Provider Internal Medicine Medical Oncology; Visit Provider Internal Medicine Cardiovascular Disease | DX: I25.10 Atherosclerotic heart disease of native coronary artery without angina pectoris (principal); T82.03XA Leakage of heart valve prosthesis, initial encounter; Z95.0 Presence of cardiac pacemaker | CPT/HCPCS: 93005; 99212 ==

== ENCOUNTER 2023-02-04 09:55 | Outpatient (REF) | payer MEDICARE, SELFPAY ==
--- NOTE | ~2023-02-04 | XR_ITS ---
EXAMINATION: XR LUMBOSACRAL SPINE CLINICAL INFORMATION: Pain. COMPARISON: None available. TECHNIQUE: AP and lateral views of the lumbar spine and lateral view of the lumbosacral junction. FINDINGS: There is bony demineralization. Vertebral body heights and alignment are normal. At L3-L4, there is mild disc space narrowing, with vacuum disc phenomenon. There is moderate disc space narrowing at L4-L5. There is marked disc space narrowing at L5-S1. No acute fracture or spondylolisthesis is seen. This multi-level lumbar spondylosis and facet arthropathy. There are aortoiliac atherosclerotic calcifications. XR/XR lumbar spine 2-3V IMPRESSION: There is multi-level lumbar degenerative disc disease, spondylosis and facet arthropathy. Degenerative disc disease is most pronounced at L5-S1, where it is severe. EXAMINATION: XR SACRUM AND COCCYX CLINICAL INFORMATION: Pain. COMPARISON: None available. TECHNIQUE: 3 frontal and lateral views of the sacrum and coccyx were obtained. FINDINGS: There are no fractures. No bone, joint or soft tissue abnormality is demonstrated. IMPRESSION: Unremarkable examination.
--- NOTE | ~2023-02-04 | XR_ITS ---
EXAMINATION: XR SACROILIAC JOINTS CLINICAL INFORMATION: Pain. COMPARISON: None available. TECHNIQUE: AP and bilateral Judet views of the sacroiliac joints FINDINGS: Bones and soft tissues are normal. No fracture. Alignment is anatomic. Sacroiliac joint spaces are well-maintained without erosions or surrounding sclerosis. There are incompletely characterized degenerative changes of the lower lumbar spine. XR/XR sacroiliac joint min 3V IMPRESSION: Normal sacroiliac joints.
--- NOTE | ~2023-02-04 | XR_ITS ---
EXAMINATION: XR LUMBOSACRAL SPINE CLINICAL INFORMATION: Pain. COMPARISON: None available. TECHNIQUE: AP and lateral views of the lumbar spine and lateral view of the lumbosacral junction. FINDINGS: There is bony demineralization. Vertebral body heights and alignment are normal. At L3-L4, there is mild disc space narrowing, with vacuum disc phenomenon. There is moderate disc space narrowing at L4-L5. There is marked disc space narrowing at L5-S1. No acute fracture or spondylolisthesis is seen. This multi-level lumbar spondylosis and facet arthropathy. There are aortoiliac atherosclerotic calcifications. XR/XR sacrum coccyx min 2V IMPRESSION: There is multi-level lumbar degenerative disc disease, spondylosis and facet arthropathy. Degenerative disc disease is most pronounced at L5-S1, where it is severe. EXAMINATION: XR SACRUM AND COCCYX CLINICAL INFORMATION: Pain. COMPARISON: None available. TECHNIQUE: 3 frontal and lateral views of the sacrum and coccyx were obtained. FINDINGS: There are no fractures. No bone, joint or soft tissue abnormality is demonstrated. IMPRESSION: Unremarkable examination.
--- NOTE | ~2023-02-04 | XR_ITS ---
EXAMINATION: XR PELVIS CLINICAL INFORMATION: Pain. COMPARISON: None available. TECHNIQUE: AP view of the pelvis. FINDINGS: There is bony demineralization. The bilateral acetabular joint spaces are well-maintained. There is minimal peripheral osteophyte formation of the articular surfaces of the bilateral hips. No fracture or dislocation is seen. The femoral heads are smooth. The bilateral sacroiliac joints are symmetric and well-maintained. The pubic symphysis is intact. No foreign body is noted. There are atherosclerotic calcifications. There are incompletely characterized degenerative changes of the lower lumbosacral spine. 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 No fracture or dislocation is seen.
== END 2023-02-04 09:56 | disposition home or self-care (01) ==
LOC: HO.XRAY 09:55
PROVIDERS: Visit Provider Internal Medicine Medical Oncology
DX: M54.50 Low back pain, unspecified (principal); M53.3 Sacrococcygeal disorders, not elsewhere classified; R10.2 Pelvic and perineal pain
CPT/HCPCS: 72100; 72170; 72202; 72220

== ENCOUNTER → 2023-02-07 08:09 | Outpatient (BNVA) | payer MEDICARE, SELFPAY | PROVIDERS: PCP Internal Medicine Medical Oncology; Visit Provider Internal Medicine | DX: I48.20 Chronic atrial fibrillation, unspecified (principal); Z79.01 Long term (current) use of anticoagulants; Z51.81 Encounter for therapeutic drug level monitoring | CPT/HCPCS: 85610; 99211 ==

== ENCOUNTER 2023-03-18 08:52 | Outpatient (AMB) | payer MEDICARE, SELFPAY ==
--- NOTE | 2023-03-18 09:08 | MHC.OFFVISCO ---
Intake Intake Visit Reasons: Anticoagulation Allergies Sulfa (Sulfonamide Antibiotics) [Sulfa (Sulfonamides)] Allergy (Mild, Verified 03/18/23 09:06) HIVES Medication List - Last Reconciled 03/18/23 by Jessica Faria RN amlodipine 10 mg PO DAILY coenzyme Q10 (Ultra CoQ10) PO lisinopril 10 mg PO DAILY yrrqvacb-izw-nhjlx-vit K-lycop (One-A-Day Men's Multivitamin) 1 ea PO DAILY omeprazole 20 mg PO DAILY rosuvastatin 10 mg PO DAILY tramadol 50 mg PO Q8H PRN warfarin See Protocol 2MG X3DAYS/ 4MG X4DAYS; Nursing Note INR 1.7-? out of therapeutic range- may have missed a dose Medications and supplements reviewed Patient status: pt states recent passing of jose Medications or supplements: no changes Diet: same Denies any signs and symptoms of bleeding or clotting or unusual bruising Bleeding, bruising, clotting discussed Nutritional guidance given: no greens for 2 days, eat a red Dose: 4mg today then cont reg 4mg x 3, 2mg x 4 F/U INR Date : 2 weeks?? Patient verbalizing understanding of instructions given. Anti-Coag Initial Assessment Social Hx Patient Tobacco Use Status: Former Tobacco user Quit Date: 1989 alcohol intake: current Alcohol intake frequency: a few times a week Coding Level of Care Code Est Patient Level 1 Diagnoses Current use of anticoagulant therapy Z79.01 Assessment & Plan Assessment & Plan (1) Current use of anticoagulant therapy: Code(s): Z79.01 - halfway (current) use of anticoagulants Category: Medical
[2023-03-18 09:14] LABS: Prothrombin Time Whole Bld POC 20.2 sec (11.1-13.5); ~PT, ~INR - Anti Coag Clinic 1.7 (0.9-1.1)
== END 2023-03-18 09:21 | disposition home or self-care (01) ==
LOC: HO.ACS 08:52
PROVIDERS: PCP Internal Medicine Medical Oncology; Visit Provider Internal Medicine
DX: Z79.01 Long term (current) use of anticoagulants (principal)

== ENCOUNTER → 2023-03-18 08:52 | Outpatient (BNVA) | payer MEDICARE, SELFPAY | PROVIDERS: PCP Internal Medicine Medical Oncology; Visit Provider Internal Medicine | DX: I48.20 Chronic atrial fibrillation, unspecified (principal); Z79.01 Long term (current) use of anticoagulants; Z51.81 Encounter for therapeutic drug level monitoring | CPT/HCPCS: 85610; 99211 ==

== ENCOUNTER 2023-04-01 08:49 | Outpatient (AMB) | payer MEDICARE, SELFPAY ==
[2023-04-01 09:03] LABS: Prothrombin Time Whole Bld POC 11.9 sec (11.1-13.5)
--- NOTE | 2023-04-01 09:13 | MHC.OFFVISCO ---
Intake Intake Visit Reasons: Anticoagulation Allergies Sulfa (Sulfonamide Antibiotics) [Sulfa (Sulfonamides)] Allergy (Mild, Verified 04/01/23 08:53) HIVES Medication List - Last Reconciled 04/01/23 by Chantelle Hanson RN amlodipine 10 mg PO DAILY coenzyme Q10 (Ultra CoQ10) PO cyclobenzaprine 10 mg PO Q8H PRN lisinopril 10 mg PO DAILY mvbplutl-fgv-vwzba-vit K-lycop (One-A-Day Men's Multivitamin) 1 ea PO DAILY omeprazole 20 mg PO DAILY rosuvastatin 10 mg PO DAILY tramadol 50 mg PO Q8H PRN warfarin See Protocol 2MG X3DAYS/ 4MG X4DAYS; Nursing Note INR: 1.0 NOT IN therapeutic range Medications and supplements reviewed No changes in medications, or supplements, GRIEVING LOSS OF DAUGHTER RECENTLY AND VERY UNEXPECTED, STATES HE MAY HAVE MISSED A DOSE OR 2 , DIET AND GRIEIING MAY HAVE EFFECTED THE INR ALSO Denies any signs and symptoms of bleeding or bruising or clotting. Bleeding, bruising, clotting discussed- GO TO ER WITH ANY C/P SOB OR STROKE OR CLOTTING SYMPTOMS Nutritional guidance given - AVOID GREENS X 3 DAYS, EAT FOODS TO HELP RAISE THE INR THIS WEEK Dose: INCREASE DOSE TO 4MG X 5 DAYS THIS WEEK THEN RESUME 4MG MWF/ 2MG X 4 DAYS F/U INR: 6 DAYS PER PT REQUEST Patient verbalizes understanding of instructions given PCP CALLED WITH INR AND PLAN OF CARE SPOKE WITH NURSE FEROZ [id number] RETURN CALL FROM PCP OFFICE - NO LOVENOX OR CHANGE IN PLAN OF CARE PER MD PER NURSE FEROZ Benedict-Vish Initial Assessment Social Hx Patient Tobacco Use Status: Former Tobacco user Quit Date: 1989 alcohol intake: current Alcohol intake frequency: a few times a week Coding Level of Care Code Est Patient Level 1 Diagnoses Current use of anticoagulant therapy Z79.01 Assessment & Plan Assessment & Plan (1) Current use of anticoagulant therapy: Code(s): Z79.01 - care home (current) use of anticoagulants Category: Medical
== END 2023-04-01 09:19 | disposition home or self-care (01) ==
LOC: HO.ACS 08:49
PROVIDERS: PCP Internal Medicine Medical Oncology; Visit Provider Internal Medicine
DX: Z79.01 Long term (current) use of anticoagulants (principal)

== ENCOUNTER → 2023-04-01 08:49 | Outpatient (BNVA) | payer MEDICARE, SELFPAY | PROVIDERS: PCP Internal Medicine Medical Oncology; Visit Provider Internal Medicine | DX: I48.20 Chronic atrial fibrillation, unspecified (principal); Z79.01 Long term (current) use of anticoagulants; Z51.81 Encounter for therapeutic drug level monitoring | CPT/HCPCS: 85610; 99211 ==

== ENCOUNTER 2023-04-07 08:46 | Outpatient (AMB) | payer MEDICARE, SELFPAY ==
--- NOTE | 2023-04-07 09:02 | MHC.OFFVISCO ---
Intake Intake Visit Reasons: Anticoagulation Allergies Sulfa (Sulfonamide Antibiotics) [Sulfa (Sulfonamides)] Allergy (Mild, Verified 04/07/23 08:58) HIVES Medication List - Last Reconciled 04/07/23 by Jessica Faria RN amlodipine 10 mg PO DAILY coenzyme Q10 (Ultra CoQ10) PO cyclobenzaprine 10 mg PO Q8H PRN lisinopril 10 mg PO DAILY quwnmptc-eye-cltwe-vit K-lycop (One-A-Day Men's Multivitamin) 1 ea PO DAILY omeprazole 20 mg PO DAILY rosuvastatin 10 mg PO DAILY tramadol 50 mg PO Q8H PRN warfarin See Protocol 2MG X3DAYS/ 4MG X4DAYS; Nursing Note INR 1.0-?? out of therapeutic range, pt denies missed doses Medications and supplements reviewed Patient status: no c.o offered. pt states he feels his new script for warfarin is not working- pt states pill color unchanged Medications or supplements: no changes Diet: same Denies any signs and symptoms of bleeding or clotting or unusual bruising Bleeding, bruising, clotting discussed Nutritional guidance given: no greens, eat reds to raise inr Dose: 4mg fri F/U INR Date : friday04/11/23? Patient verbalizing understanding of instructions given. pcp office dr castro called with low inr/dosing and f/u appt - spoke with roland at 0914, aware prev poc inr 1.0, ? 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
[2023-04-07 09:04] LABS: Prothrombin Time Whole Bld POC 11.6 sec (11.1-13.5)
== END 2023-04-07 09:11 | disposition home or self-care (01) ==
LOC: HO.ACS 08:46
PROVIDERS: PCP Internal Medicine Medical Oncology; Visit Provider Internal Medicine
DX: Z79.01 Long term (current) use of anticoagulants (principal)

== ENCOUNTER → 2023-04-07 08:46 | Outpatient (BNVA) | payer MEDICARE, SELFPAY | PROVIDERS: PCP Internal Medicine Medical Oncology; Visit Provider Internal Medicine | DX: I48.20 Chronic atrial fibrillation, unspecified (principal); Z79.01 Long term (current) use of anticoagulants; Z51.81 Encounter for therapeutic drug level monitoring | CPT/HCPCS: 85610; 99211 ==

== ENCOUNTER 2023-04-11 08:57 | Outpatient (AMB) | payer MEDICARE, SELFPAY ==
[2023-04-11 09:18] LABS: Prothrombin Time Whole Bld POC 16.8 sec (11.1-13.5); ~PT, ~INR - Anti Coag Clinic 1.4 (0.9-1.1)
--- NOTE | 2023-04-11 09:20 | MHC.OFFVISCO ---
Intake Intake Visit Reasons: Anticoagulation Allergies Sulfa (Sulfonamide Antibiotics) [Sulfa (Sulfonamides)] Allergy (Mild, Verified 04/11/23 09:02) HIVES Medication List - Last Reconciled 04/11/23 by Beverly Cottrell RN amlodipine 10 mg PO DAILY coenzyme Q10 (Ultra CoQ10) PO cyclobenzaprine 10 mg PO Q8H PRN lisinopril 10 mg PO DAILY kphnrpul-wad-ehjlo-vit K-lycop (One-A-Day Men's Multivitamin) 1 ea PO DAILY omeprazole 20 mg PO DAILY rosuvastatin 10 mg PO DAILY tramadol 50 mg PO Q8H PRN warfarin See Protocol 2MG X3DAYS/ 4MG X4DAYS; Nursing Note PT.STATES THAT HE REALIZED ON 04/08 THAT HE WAS TAKING A MUSCLE RELAXER INSTEAD OF THE WARFARIN FOR APPROX. 1 WEEK. AFTER REALIZING THE ERROR HE RESTARTED WARFARIN ON 04/08. WILL BOOST TO 4MGM OVER THE WEEKEND THEN RESUME USUAL DOSING AND FOLLOW-UP IN 1 WEEK.(GOING OUT OF TOWN) HE WILL AVOID GREENS FOR 3 DAYS AND INCREASE REDS. (NEHAL)NOTIFIED OF INR AND PLAN OF CARE REQUESTED. PT.HAS HAD NO CP,SOB, OR BLEEDING. GOOD UNDERSTANDING OF DOSING INSTR.VERB. HE WILL BE CAREFUL NOT TO OMIT ANY DOSES. Anti-Coag Initial Assessment Social Hx Patient Tobacco Use Status: Former Tobacco user Quit Date: 1989 alcohol intake: current Alcohol intake frequency: a few times a week Coding Level of Care Code Est Patient Level 1 Diagnoses Current use of anticoagulant therapy Z79.01 Results AMB INR Fingerstick AMB INR Fingerstick 1.4 Last Edit by Beverly Cottrell RN on 04/11/23 09:11 Assessment & Plan Assessment & Plan (1) Current use of anticoagulant therapy: Code(s): Z79.01 - group home (current) use of anticoagulants Category: Medical
== END 2023-04-11 11:42 | disposition home or self-care (01) ==
LOC: HO.ACS 08:57
PROVIDERS: PCP Internal Medicine Medical Oncology; Visit Provider Internal Medicine
DX: Z79.01 Long term (current) use of anticoagulants (principal)

== ENCOUNTER → 2023-04-11 08:57 | Outpatient (BNVA) | payer MEDICARE, SELFPAY | PROVIDERS: PCP Internal Medicine Medical Oncology; Visit Provider Internal Medicine | DX: I48.20 Chronic atrial fibrillation, unspecified (principal); Z79.01 Long term (current) use of anticoagulants; Z51.81 Encounter for therapeutic drug level monitoring | CPT/HCPCS: 85610; 99211 ==

== ENCOUNTER 2023-04-18 08:25 | Outpatient (AMB) | payer MEDICARE, SELFPAY ==
[2023-04-18 08:40] LABS: Prothrombin Time Whole Bld POC 35.5 sec (11.1-13.5)
--- NOTE | 2023-04-18 08:45 | MHC.OFFVISCO ---
Intake Intake Visit Reasons: Anticoagulation Allergies Sulfa (Sulfonamide Antibiotics) [Sulfa (Sulfonamides)] Allergy (Mild, Verified 04/18/23 08:34) HIVES Medication List - Last Reconciled 04/18/23 by Niya Bob RN amlodipine 10 mg PO DAILY coenzyme Q10 (Ultra CoQ10) PO cyclobenzaprine 10 mg PO Q8H PRN lisinopril 10 mg PO DAILY pbmhxfju-fec-xlbcb-vit K-lycop (One-A-Day Men's Multivitamin) 1 ea PO DAILY omeprazole 20 mg PO DAILY rosuvastatin 10 mg PO DAILY tramadol 50 mg PO Q8H PRN warfarin See Protocol 2MG X3DAYS/ 4MG X4DAYS; Nursing Note Amb to [facility] feeling well, sts low numbers recently due to taking muscle relaxer instead of warfarin sts all set now has been taking warfarin and eating more reds to help raise Medications and supplements reviewed No other changes in health, diet, medications, or supplements Denies any unusual signs and symptoms of bruising, bleeding Denies any new Chest pain, SOB, or clotting INR: 3.0 now in therapeutic range Nutritional guidance given: usual diet, balance greens and reds in diet Dose: continue usual dosing;4mg x 3 days and 2mg x 4 days F/U INR: 4 weeks Patient verbalizes understanding of instructions given with accurate read back/ teach back of dosing Anti-Coag Initial Assessment Social Hx Patient Tobacco Use Status: Former Tobacco user Quit Date: 1989 alcohol intake: current Alcohol intake frequency: a few times a week Coding Level of Care Code Est Patient Level 1 Diagnoses Current use of anticoagulant therapy Z79.01 Time Spent (min) 15 Assessment & Plan Assessment & Plan (1) Current use of anticoagulant therapy: Code(s): Z79.01 - care home (current) use of anticoagulants Category: Medical
== END 2023-04-18 08:51 | disposition home or self-care (01) ==
LOC: HO.ACS 08:25
PROVIDERS: PCP Internal Medicine Medical Oncology; Visit Provider Internal Medicine
DX: Z79.01 Long term (current) use of anticoagulants (principal)

== ENCOUNTER → 2023-04-18 08:25 | Outpatient (BNVA) | payer MEDICARE, SELFPAY | PROVIDERS: PCP Internal Medicine Medical Oncology; Visit Provider Internal Medicine | DX: I48.20 Chronic atrial fibrillation, unspecified (principal); Z79.01 Long term (current) use of anticoagulants; Z51.81 Encounter for therapeutic drug level monitoring | CPT/HCPCS: 85610; 99211 ==

== ENCOUNTER 2023-05-09 09:49 | Outpatient (AMB) | payer MEDICARE, SELFPAY ==
[2023-05-09 09:55] LABS: Prothrombin Time Whole Bld POC 22.9 sec (11.1-13.5); ~PT, ~INR - Anti Coag Clinic 1.9 (0.9-1.1)
--- NOTE | 2023-05-09 10:04 | MHC.OFFVISCO ---
Intake Intake Visit Reasons: Anticoagulation Allergies Sulfa (Sulfonamide Antibiotics) [Sulfa (Sulfonamides)] Allergy (Mild, Verified 05/09/23 09:49) HIVES Medication List - Last Reconciled 05/09/23 by Beverly Cottrell RN amlodipine 10 mg PO DAILY coenzyme Q10 (Ultra CoQ10) PO cyclobenzaprine 10 mg PO Q8H PRN lisinopril 10 mg PO DAILY gtmkeynx-sqy-sxpum-vit K-lycop (One-A-Day Men's Multivitamin) 1 ea PO DAILY omeprazole 20 mg PO DAILY rosuvastatin 10 mg PO DAILY tramadol 50 mg PO Q8H PRN warfarin See Protocol 2MG X3DAYS/ 4MG X4DAYS; Nursing Note NO CP,SOB,DIET/MED CHANGES,FALLS OR SX OF BLEEDING. CONTINUE PRESENT DOSE AND FOLLOW-UP IN 4 WEEKS. GOOD UNDERSTANDING OF DOSING INSTR. 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
== END 2023-05-09 10:06 | disposition home or self-care (01) ==
LOC: HO.ACS 09:49
PROVIDERS: PCP Internal Medicine Medical Oncology; Visit Provider Internal Medicine
DX: Z79.01 Long term (current) use of anticoagulants (principal)

== ENCOUNTER → 2023-05-09 09:49 | Outpatient (BNVA) | payer MEDICARE, SELFPAY | PROVIDERS: PCP Internal Medicine Medical Oncology; Visit Provider Internal Medicine | DX: I48.20 Chronic atrial fibrillation, unspecified (principal); Z79.01 Long term (current) use of anticoagulants; Z51.81 Encounter for therapeutic drug level monitoring | CPT/HCPCS: 85610; 99211 ==

== ENCOUNTER → 2023-05-20 09:48 | Outpatient (REF) | payer MEDICARE, SELFPAY ==
--- NOTE | 2023-05-20 09:50 | CA_ITS ---
Transthoracic Echocardiogram Patient (Last, First, Middle): Donny Hale E Gender: Male Date of : 1935 Age: 87 Procedure Date: 05/20/2023 Procedure Type: Transthoracic Echocardiogram Location: OP Height: 175.26 cm Weight: 76.66 kg BSA: 1.92 m2 Heart Rate: bpm BP: 126 / 58 mmHg Fabricator Foam Rubber: JEANETTE Referring MD: Arnaldo Carlson MD Paper Control Clerk: Arnaldo Carlson MD Symptoms: T82.03XA - Leakage of heart valve prosthesis, initial encounter Study Quality: Adequate Conclusions: - Normal left ventricular cavity size. There is mildly increased left ventricular wall thickness. The left ventricular systolic function is normal. The visually estimated ejection fraction is between 55-60%. LV apex appears dyskinetic in some views due to RV pacing. - Mildly increased right ventricular cavity size. There is normal right ventricular systolic function. There is a pacemaker wire seen in the right ventricle. - A bioprosthetic aortic valve is present. The prosthetic aortic valve appears to be functioning normally. The peak aortic velocity is 2.41 m/s. The mean gradient is 13 mmHg. There is mild to moderate aortic valve regurgitation. Findings Left Ventricle Normal left ventricular cavity size. There is mildly increased left ventricular wall thickness. The left ventricular systolic function is normal. The visually estimated ejection fraction is between 55-60%. There is no evidence of regional wall motion abnormalities. There is paradoxical septal motion consistent with a right ventricular pacemaker. Diastolic function is indeterminate on the basis of available data. Right Ventricle Mildly increased right ventricular cavity size. There is normal right ventricular systolic function. There is a pacemaker wire seen in the right ventricle. Atria The left atrium is severely dilated. The right atrium is normal in size. Aortic Valve A bioprosthetic aortic valve is present. The prosthetic aortic valve appears to be functioning normally. The peak aortic velocity is 2.41 m/s. The mean gradient is 13 mmHg. There is mild to moderate aortic valve regurgitation. Mitral Valve There is severe mitral annular calcification. There is no mitral valve regurgitation. Pulmonic Valve The pulmonic valve is likely normal. Tricuspid Valve Normal tricuspid valve structure. There is trace tricuspid valve regurgitation. Normal right atrial pressure. There is no evidence of pulmonary hypertension. Great Vessels All visible segments of the aorta are normal in size. The visualized portions of the pulmonary artery and branches are normal. Venous The inferior vena cava is normal in size and collapses greater than 50% with inspiration. Pericardium/Pleural There is no evidence of pericardial effusion. Prior Study Comparison No significant change compared to prior study dated: 05/28/2022. Measurements 2D Linear Measurements IVSd: 1.30 0.6-0.9/0.6-1.0 cm LVIDd: 5.10 3.9-5.3/4.2-5.9 cm LVIDd Index: 2.66 2.4-3.2/2.2-3.1 cm/m2 LVIDs: 3.50 2.0-3.6 cm LVPWd: 1.30 0.7-1.1 cm LA Diam: 4.70 2.7-3.8/3.0-4.0 cm LAIDs Index: 2.45 1.5-2.3 cm/m2 LV Mass: 336.84 67-162/88-224 g LV Mass Index: 175.44 43-95/49-115 g/m2 LVOT Diam: 2.00 3.0+(-)1.3 cm 2D Systolic Function EF 4C: 55.50 >55% EF 2C: 62.60 >55% EF BiP: 59.90 >55% Mitral Valve MV VTI: 0.63 MV Pk Miky: 1.89 MV Mn Miky: 1.13 MV Pk Grad: 14.00 MV Mn Grad: 6.00 MV Pk E: 1.21 MV PK A: 1.75 MV Decel Time: 345.00 E/A: 0.70 E'Lateral: 3.81 E'Medial: 4.46 E/E' Med: 27.10 E/E' Lat: 31.80 PHT: 101.00 MVA PHT: 2.18 MVA Continuity: 1.45 Decel [place]: 3.51 Aortic Valve AoV Pk Miky: 2.41 AoV Mn Miky: 1.67 AoV VTI: 0.57 AoV Pk Grad: 23.00 Aov Mn Grad: 13.00 KAVITA Cont.VTI: 1.59 LVOT LVOT Pk Miky: 1.43 LVOT Mn Miky: 0.89 LVOT VTI: 0.29 LVOT Pk Grad: 8.00 LVOT Mn Grad: 4.00 LVOT Diam: 2.00 LVOT Area: 3.14 Diastolic Function MV Pk E: 1.21 MV Pk A: 1.75 E/A: 0.70 E'Medial: 4.46 E/E' Med: 27.10 E' Laterial: 3.81 E/E' Lat: 31.80 Right Ventricle TAPSE (mm): 23.30 TVS' Miky: 14.90 Tricuspid Valve TR Pk Miky: 2.71 TR Pk Grad: 29.00 RA Press: 3.00 RVSP: 32.00 Great Vessels Aorta Ao Asc: 3.50 2.1-3.4 cm Updated in Other Vendor System with Status of Final Arnaldo Carlson MD electronically signed on 05/22/2023 9:05:46 PM with status of Final
== END ==
LOC: HO.CARD 09:48
PROVIDERS: PCP Internal Medicine Medical Oncology; Visit Provider Internal Medicine Cardiovascular Disease
DX: T82.03XA Leakage of heart valve prosthesis, initial encounter (principal)
CPT/HCPCS: 93306

== ENCOUNTER → 2023-05-20 09:50 | Outpatient (BNV) | payer MEDICARE, SELFPAY | PROVIDERS: PCP Internal Medicine Medical Oncology; Visit Provider Internal Medicine Cardiovascular Disease | DX: T82.03XA Leakage of heart valve prosthesis, initial encounter (principal); Z95.2 Presence of prosthetic heart valve | CPT/HCPCS: 93306 ==

== ENCOUNTER 2023-06-06 08:46 | Outpatient (AMB) | payer MEDICARE, SELFPAY ==
[2023-06-06 08:52] LABS: Prothrombin Time Whole Bld POC 23.8 sec (11.1-13.5)
--- NOTE | 2023-06-06 08:59 | MHC.OFFVISCO ---
Intake Intake Visit Reasons: Anticoagulation Allergies Sulfa (Sulfonamide Antibiotics) [Sulfa (Sulfonamides)] Allergy (Mild, Verified 06/06/23 08:46) HIVES Medication List - Last Reconciled 06/06/23 by Beverly Cottrell RN amlodipine 10 mg PO DAILY coenzyme Q10 (Ultra CoQ10) PO cyclobenzaprine 10 mg PO Q8H PRN lisinopril 10 mg PO DAILY vuxfusks-etl-mdnxf-vit K-lycop (One-A-Day Men's Multivitamin) 1 ea PO DAILY omeprazole 20 mg PO DAILY rosuvastatin 10 mg PO DAILY tramadol 50 mg PO Q8H PRN warfarin See Protocol 2MG X3DAYS/ 4MG X4DAYS; Nursing Note NO CP,SOB,DIET/MED CHANGES,FALLS OR SX OF BLEEDING. CONTINUE PRESENT DOSE AND FOLLOW-UP IN 5 WEEKS. GOOD UNDERSTANDING OF DOSING INSTR. 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
== END 2023-06-06 09:01 | disposition home or self-care (01) ==
LOC: HO.ACS 08:46
PROVIDERS: PCP Internal Medicine Medical Oncology; Visit Provider Internal Medicine
DX: Z79.01 Long term (current) use of anticoagulants (principal)

== ENCOUNTER → 2023-06-06 08:46 | Outpatient (BNVA) | payer MEDICARE, SELFPAY | PROVIDERS: PCP Internal Medicine Medical Oncology; Visit Provider Internal Medicine | DX: I48.20 Chronic atrial fibrillation, unspecified (principal); Z79.01 Long term (current) use of anticoagulants; Z51.81 Encounter for therapeutic drug level monitoring | CPT/HCPCS: 85610; 99211 ==

== ENCOUNTER 2023-07-11 08:42 | Outpatient (AMB) | payer MEDICARE, SELFPAY ==
--- NOTE | 2023-07-11 09:13 | MHC.OFFVISCO ---
Intake Intake Visit Reasons: Anticoagulation Allergies Sulfa (Sulfonamide Antibiotics) [Sulfa (Sulfonamides)] Allergy (Mild, Verified 07/11/23 09:02) HIVES Medication List - Last Reconciled 07/11/23 by Beverly Cottrell RN amlodipine 10 mg PO DAILY coenzyme Q10 (Ultra CoQ10) PO cyclobenzaprine 10 mg PO Q8H PRN lisinopril 10 mg PO DAILY pgvhnfdp-rlc-kkqaj-vit K-lycop (One-A-Day Men's Multivitamin) 1 ea PO DAILY omeprazole 20 mg PO DAILY rosuvastatin 10 mg PO DAILY tramadol 50 mg PO Q8H PRN warfarin See Protocol 2MG X3DAYS/ 4MG X4DAYS; Nursing Note NO CP,SOB,DIET/MED CHANGES,FALLS OR SX OF BLEEDING. CONTINUE PRESENT DOSE AND FOLLOW-UP IN WEEKS. GOOD UNDERSTANDING OF DOSING INSTR. Anti-Coag Initial Assessment Social Hx Patient Tobacco Use Status: Former Tobacco user Quit Date: 1989 alcohol intake: current Alcohol intake frequency: a few times a week Coding Level of Care Code Est Patient Level 1 Diagnoses Current use of anticoagulant therapy Z79.01 Results AMB INR Fingerstick AMB INR Fingerstick 2.1 Last Edit by Beverly Cottrell RN on 07/11/23 09:10 Assessment & Plan Assessment & Plan (1) Current use of anticoagulant therapy: Code(s): Z79.01 - [facility] (current) use of anticoagulants Category: Medical
[2023-07-11 16:41] LABS: Prothrombin Time Whole Bld POC 25.7 sec (11.1-13.5); ~PT, ~INR - Anti Coag Clinic 2.1 (0.9-1.1)
== END 2023-07-11 09:40 | disposition home or self-care (01) ==
LOC: HO.ACS 08:42
PROVIDERS: PCP Internal Medicine Medical Oncology; Visit Provider Internal Medicine
DX: Z79.01 Long term (current) use of anticoagulants (principal)

== ENCOUNTER → 2023-07-11 08:42 | Outpatient (BNVA) | payer MEDICARE, SELFPAY | PROVIDERS: PCP Internal Medicine Medical Oncology; Visit Provider Internal Medicine | DX: I48.20 Chronic atrial fibrillation, unspecified (principal); Z79.01 Long term (current) use of anticoagulants; Z51.81 Encounter for therapeutic drug level monitoring | CPT/HCPCS: 85610; 99211 ==

== ENCOUNTER 2023-08-13 08:42 | Outpatient (AMB) | payer MEDICARE, SELFPAY ==
--- NOTE | 2023-08-13 08:55 | MHC.OFFVISCO ---
Intake Intake Visit Reasons: Anticoagulation Allergies Sulfa (Sulfonamide Antibiotics) [Sulfa (Sulfonamides)] Allergy (Mild, Verified 08/13/23 08:51) HIVES Medication List - Last Reconciled 08/13/23 by Jessica Faria RN amlodipine 10 mg PO DAILY coenzyme Q10 (Ultra CoQ10) PO cyclobenzaprine 10 mg PO Q8H PRN lisinopril 10 mg PO DAILY temaiiaz-bcd-muksb-vit K-lycop (One-A-Day Men's Multivitamin) 1 ea PO DAILY omeprazole 20 mg PO DAILY rosuvastatin 10 mg PO DAILY tramadol 50 mg PO Q8H PRN warfarin See Protocol 2MG X3DAYS/ 4MG X4DAYS; Nursing Note INR: 2.4 in therapeutic range of 2-3 Medications and supplements reviewed- no changes No changes in health, diet, medications, or supplements, Denies any signs and symptoms of bleeding or bruising or clotting. Bleeding, bruising, clotting discussed Nutritional guidance given Dose: 4mg x 3, 2mg x 4 F/U INR: 01/14/24- pt to [place] 09/03- 01/01 has inr check while in [place]- pt states managed by dr castro if out of range Patient verbalizes understanding of instructions given Anti-Coag Initial Assessment Social Hx Patient Tobacco Use Status: Former Tobacco user Quit Date: 1989 alcohol intake: current Alcohol intake frequency: a few times a week Coding Level of Care Code Est Patient Level 1 Diagnoses Current use of anticoagulant therapy Z79.01 Assessment & Plan Assessment & Plan (1) Current use of anticoagulant therapy: Code(s): Z79.01 - nursing home (current) use of anticoagulants Category: Medical
[2023-08-13 08:56] LABS: ~PT, ~INR - Anti Coag Clinic 2.4 (0.9-1.1)
== END 2023-08-13 09:00 | disposition home or self-care (01) ==
LOC: HO.ACS 08:42
PROVIDERS: PCP Internal Medicine Medical Oncology; Visit Provider Internal Medicine
DX: Z79.01 Long term (current) use of anticoagulants (principal)

== ENCOUNTER → 2023-08-13 08:42 | Outpatient (BNVA) | payer MEDICARE, SELFPAY | PROVIDERS: PCP Internal Medicine Medical Oncology; Visit Provider Internal Medicine | DX: I48.20 Chronic atrial fibrillation, unspecified (principal); Z51.81 Encounter for therapeutic drug level monitoring; Z79.01 Long term (current) use of anticoagulants | CPT/HCPCS: 85610; 99211 ==

== ENCOUNTER 2024-01-09 08:26 | Outpatient (AMB) | payer MEDICARE, SELFPAY ==
[2024-01-09 08:33] LABS: Prothrombin Time Whole Bld POC 27.4 sec (11.1-13.5); ~PT, ~INR - Anti Coag Clinic 2.3 (0.9-1.1)
--- NOTE | 2024-01-09 08:38 | MHC.OFFVISCO ---
Intake Intake Visit Reasons: Anticoagulation Allergies Sulfa (Sulfonamide Antibiotics) [Sulfa (Sulfonamides)] Allergy (Mild, Verified 01/09/24 08:27) HIVES Medication List - Last Reconciled 01/09/24 by Niya Bob RN amlodipine 10 mg PO DAILY coenzyme Q10 (Ultra CoQ10) PO cyclobenzaprine 10 mg PO Q8H PRN lisinopril 10 mg PO DAILY igqfkroc-lra-hxwfw-vit K-lycop (One-A-Day Men's Multivitamin) 1 ea PO DAILY omeprazole 20 mg PO DAILY rosuvastatin 10 mg PO DAILY tramadol 50 mg PO Q8H PRN warfarin See Protocol 2MG X3DAYS/ 4MG X4DAYS; Nursing Note AMb to [facility] feeling well, first visit back since in [place] he has a Dr there who monitors INR monthly or as needed had right hand CTS while there, sts no issues Medications and supplements reviewed No changes in health, diet, medications, or supplements, Denies any signs and symptoms of bleeding, bruising, or clotting. INR 2.3 in therapeutic range continue usual dosing 4mg x 3 days and 2mg x 4 days Nutritional guidance given continue to balance greens and reds in diet F/U INR: 4 weeks Patient verbalizes understanding of instructions given Anti-Coag Initial Assessment Social Hx Patient Tobacco Use Status: Former Tobacco user Quit Date: 1989 alcohol intake: current Alcohol intake frequency: a few times a week Questionnaires HAS-BLED Does the patient had uncontrolled Hypertension?: No Does the patient have renal disease?: No Does the patient have liver disease?: No Does the patient have a history of stroke?: No Has the patient had major bleeding or predisposition to bleeding?: No Does the patient have labile INRs?: No Is the patient over 65 years of age?: No Is the patient on medications that gives them a predisposition to bleeding?: Yes Does the patient use alcohol?: Yes HAS-BLED Score: 2 CHADSVASC Age: 75 or over Gender: Male Does the patient have a history of CHF?: No Does the patient have a history of Hypertension?: No Does the patient have a history of Stroke/TIA/Thromboembolism?: No Does the patient have a history of Vascular Disease (prior WI, PAD or aortic plaque)?: Yes Does the patient have a history of Diabetes?: No CHADS VACS Score: 3 Rafael Prediction Score Rsk VTE Active Cancer: No Previous VTE, excluding superficial vein thrombosis: No Reduced mobility: No Already known Thrombophilic Condition: Yes With-in last month Trauma and/or Surgery: No Elderly 70 year or older: Yes Heart and/or Respiratory Failure: No Acute Myocardial infarction and/or Ischemic Stroke: No Acute Infection and/or Rheumatologic Disorder: No Obesity (BMI 30 or greater): No Ongoing Hormonal Treatment: No Score: 4 Rafael Score less than 4; Low Risk of VTE Rafael Score 4 or greater; High Risk of VTE Coding Level of Care Code Est Patient Level 1 Diagnoses Current use of anticoagulant therapy Z79.01 Time Spent (min) 15 Assessment & Plan Assessment & Plan (1) Current use of anticoagulant therapy: 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
== END 2024-01-09 08:51 | disposition home or self-care (01) ==
LOC: HO.ACS 08:26
PROVIDERS: PCP Internal Medicine Medical Oncology; Visit Provider Internal Medicine
DX: Z79.01 Long term (current) use of anticoagulants (principal)

== ENCOUNTER → 2024-01-09 08:26 | Outpatient (BNVA) | payer MEDICARE, SELFPAY | PROVIDERS: PCP Internal Medicine Medical Oncology; Visit Provider Internal Medicine | DX: I48.20 Chronic atrial fibrillation, unspecified (principal); Z79.01 Long term (current) use of anticoagulants; Z51.81 Encounter for therapeutic drug level monitoring | CPT/HCPCS: 85610; 99211 ==

== ENCOUNTER 2024-02-02 14:20 | Outpatient (AMB) | payer MEDICARE, SELFPAY ==
[2024-02-02 14:33] VITALS: BP 132/54; PULSE 58; BMI 25.7
--- NOTE | 2024-02-02 14:33 | MHC.OFFVIS ---
Vital Signs 02/02/24 14:33 Height 5 ft 9 in Weight 174 lb 2.643 oz BMI 25.7 BP 132/54 L Blood Pressure Location Lt brachial Position Sitting Pulse 58 Pulse Source Monitor Intake Visit Reasons: 1 yr f/up Intake Note: 1 yr with ekg/ pt states that he is doing fine. 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 Accompanied by: Self / Same As Patient Allergies Sulfa (Sulfonamide Antibiotics) [Sulfa (Sulfonamides)] Allergy (Mild, Verified 01/09/24 08:27) HIVES Medication List - Last Reconciled 02/02/24 by Arnaldo Carlson MD amlodipine 10 mg PO DAILY coenzyme Q10 (Ultra CoQ10) PO cyclobenzaprine 10 mg PO Q8H PRN lisinopril 10 mg PO DAILY xhfvuusk-oml-uyjli-vit K-lycop (One-A-Day Men's Multivitamin) 1 ea PO DAILY omeprazole 20 mg PO DAILY rosuvastatin 10 mg PO DAILY tramadol 50 mg PO Q8H PRN warfarin See Protocol 2MG X3DAYS/ 4MG X4DAYS; HPI Comments Details: Pleasant 88-year-old gentleman here for follow-up. He was originally referred for severe aortic stenosis. He underwent cardiac catheterization which showed 60% lad disease. Subsequent to that he underwent transcatheter aortic valve replacement. He had mild paravalvular leak after the procedure. He has done significantly well after that and was quite active. 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 He returned from [place] in December 2021 and was seen in follow-up. While in [place] he had echocardiography performed in November 2021. It showed normal left ventricular ejection fraction with an ejection fraction of 60 65%, concentric left ventricle hypertrophy, paradoxical septal motion, dilated left atrium, moderate aortic valve stenosis and moderate eccentric aortic regurgitation which was paravalvular. Mild mitral valve regurgitation and grade 1 diastolic dysfunction. Previously his paravalvular leak was was mild in June 2020. He continues to be active with swimming and physical activities and has no issues. Repeat echocardiography which showed mild paravalvular leak. As before he continues to be active with swimming and hunting and has no exertional chest discomfort or shortness of breath. No peripheral edema, orthopnea or PND. Overall clinically stable. 02/02/2024: He is here for follow-up. He returned from [place] in 12/29/2023. Doing well. No chest pain or shortness breath. He continues to swim and exercise. [facility] Medical History (Updated 02/02/24 @ 14:36 by Doreen Nino CMA) Carpal tunnel syndrome Pacemaker Aortic stenosis Coronary artery disease Chronic atrial fibrillation Surgical History S/P TAVR (transcatheter aortic valve replacement) H/O: knee surgery History of prostate surgery Family History Mother No problems noted. Father No problems noted. Social History Alcohol intake: current Alcohol intake frequency: a few times a week Alcohol type: beer and hard liquor Patient Tobacco Use Status: Former Tobacco user Years Smoked: 10 +/- Review of Systems Const Denies chills, Denies fatigue, Denies fever(s), Denies frequent falls, Denies weakness, Denies weight gain and Denies weight loss ENT Denies dizziness Card Denies chest pain, Denies leg edema, Denies lightheadedness, Denies palpitations, Denies dyspnea and Denies dyspnea on exertion Resp Denies cough, Denies dyspnea and Denies dyspnea on exertion GI Denies hematochezia Musc Denies abnormal gait, Denies muscle weakness, Denies numbness, Denies radiating pain into limb and Denies tingling Neuro Denies abnormal gait, Denies dizziness, Denies frequent falls, Denies numbness, Denies tingling and Denies weakness Endo Denies fatigue and Denies palpitations Physical Exam Vital Signs: Last Vital Signs Pulse 58 02/02/24 14:33 BP 132/54 L 02/02/24 14:33 BMI result Body Mass Index 25.7 GENERAL APPEARANCE: in no acute distress, pleasant. NECK: no carotid bruit, no jugular venous distention. SKIN: no suspicious lesions, warm and dry. HEART: Regular rate and rhythm, early diastolic murmur left sternal border. LUNGS: clear to auscultation bilaterally. ABDOMEN: soft, nontender. EXTREMITIES: no edema. PERIPHERAL PULSES: equal. NEUROLOGIC: No gross deficits, AAO X 3 Office Procedures EKG Details: Sinus bradycardia 58 beats per minute, left axis deviation, V paced rhythm, QTC 459 milliseconds. [id number], Complete Assessment & Plan Assessment & Plan (1) S/P TAVR (transcatheter aortic valve replacement): Code(s): Z95.2 - Presence of prosthetic heart valve Category: Surgical (2) Pacemaker: Comment: [employer] dual chamber Code(s): Z95.0 - Presence of cardiac pacemaker Category: Medical (3) Coronary artery disease: Code(s): I25.10 - Atherosclerotic heart disease of [place] coronary artery without angina pectoris Category: Medical (4) Paravalvular leak of prosthetic heart valve: Code(s): T82.03XA - Leakage of heart valve prosthesis, initial encounter Category: Medical Plan Pleasant 87-year-old gentleman is here for follow-up. He has transcatheter aortic valve replacement with mild paravalvular leak. He continues to be active and has no symptoms. No chest discomfort shortness of breath. He continues to swim without any functional limitations. Blood pressure control is good. His EKGs showing paced rhythm. We will repeat echocardiography in 5 months. Given the fact that he is paced sometimes cardiomyopathy can develop due to RV pacing and I think we have to monitor for that. His paravalvular leak overall has been stable. He has no symptoms of concern currently. We will arrange that his pacemaker can be followed by us. It appears we have not been receiving any remote data. Thank you for allowing me to participate in the care of your patient. Please feel free to contact me if you have any questions. Orders: Orders [place] echo transthoracic complete 5 Months Z95.2 - Presence of prosthetic heart valve Coding Level of Care Code Est Pt Level 4 (57001) Diagnoses S/P TAVR (transcatheter aortic valve replacement) Z95.2 Pacemaker Z95.0 Coronary artery disease I25.10 Paravalvular leak of prosthetic heart valve T82.03XA CPT Codes EKG - CPT: 53079-[id number], Complete ([id number])
== END 2024-02-02 14:59 | disposition home or self-care (01) ==
PROVIDERS: PCP Internal Medicine Medical Oncology; Visit Provider Internal Medicine Cardiovascular Disease
DX: Z95.2 Presence of prosthetic heart valve (principal); Z95.0 Presence of cardiac pacemaker; I25.10 Atherosclerotic heart disease of native coronary artery without angina pectoris; T82.03XA Leakage of heart valve prosthesis, initial encounter
CPT/HCPCS: 93010; 99214

== ENCOUNTER → 2024-02-02 14:20 | Outpatient (BNVA) | payer MEDICARE, SELFPAY | PROVIDERS: PCP Internal Medicine Medical Oncology; Visit Provider Internal Medicine Cardiovascular Disease | DX: I25.10 Atherosclerotic heart disease of native coronary artery without angina pectoris (principal); T82.03XA Leakage of heart valve prosthesis, initial encounter; Z95.0 Presence of cardiac pacemaker | CPT/HCPCS: 93005; 99212 ==

== ENCOUNTER 2024-02-09 08:51 | Outpatient (AMB) | payer MEDICARE, SELFPAY ==
--- NOTE | 2024-02-09 08:57 | MHC.OFFVISCO ---
Intake Intake Visit Reasons: Anticoagulation Allergies Sulfa (Sulfonamide Antibiotics) [Sulfa (Sulfonamides)] Allergy (Mild, Verified 02/09/24 08:53) HIVES Medication List - Last Reconciled 02/09/24 by Jessica Faria RN amlodipine 10 mg PO DAILY coenzyme Q10 (Ultra CoQ10) PO cyclobenzaprine 10 mg PO Q8H PRN lisinopril 10 mg PO DAILY xwsjjaav-wfa-ycmpw-vit K-lycop (One-A-Day Men's Multivitamin) 1 ea PO DAILY omeprazole 20 mg PO DAILY rosuvastatin 10 mg PO DAILY tramadol 50 mg PO Q8H PRN warfarin See Protocol 2MG X3DAYS/ 4MG X4DAYS; Nursing Note INR: 2.4- in therapeutic range of 2-3 Medications and supplements reviewed- no changes No changes in health, diet, medications, or supplements, Denies any signs and symptoms of bleeding or bruising or clotting. Bleeding, bruising, clotting discussed Nutritional guidance given Dose: 4mg x 3, 2mg x 4 F/U INR: 4 weeks Patient verbalizes understanding of instructions given pt slipped on dock- injury to knee, not taking any analgesics Anti-Coag Initial Assessment Social Hx Patient Tobacco Use Status: Former Tobacco user alcohol intake: current Alcohol intake frequency: a few times a week Coding Level of Care Code Est Patient Level 1 Diagnoses Current use of anticoagulant therapy Z79.01 Assessment & Plan Assessment & Plan (1) Current use of anticoagulant therapy: Code(s): Z79.01 - [facility] (current) use of anticoagulants Category: Medical
[2024-02-09 08:58] LABS: Prothrombin Time Whole Bld POC 29.2 sec (11.1-13.5); ~PT, ~INR - Anti Coag Clinic 2.4 (0.9-1.1)
== END 2024-02-09 09:05 | disposition home or self-care (01) ==
LOC: HO.ACS 08:51
PROVIDERS: PCP Internal Medicine Medical Oncology; Visit Provider Internal Medicine
DX: Z79.01 Long term (current) use of anticoagulants (principal)

== ENCOUNTER → 2024-02-09 08:51 | Outpatient (BNVA) | payer MEDICARE, SELFPAY | PROVIDERS: PCP Internal Medicine Medical Oncology; Visit Provider Internal Medicine | DX: I48.20 Chronic atrial fibrillation, unspecified (principal); Z51.81 Encounter for therapeutic drug level monitoring; Z79.01 Long term (current) use of anticoagulants | CPT/HCPCS: 85610; 99211 ==

== ENCOUNTER 2024-03-08 08:53 | Outpatient (AMB) | payer MEDICARE, SELFPAY ==
[2024-03-08 09:05] LABS: Prothrombin Time Whole Bld POC 29.2 sec (11.1-13.5); ~PT, ~INR - Anti Coag Clinic 2.4 (0.9-1.1)
--- NOTE | 2024-03-08 09:11 | MHC.OFFVISCO ---
Intake Intake Visit Reasons: Anticoagulation Allergies Sulfa (Sulfonamide Antibiotics) [Sulfa (Sulfonamides)] Allergy (Mild, Verified 03/08/24 08:58) HIVES Medication List - Last Reconciled 03/08/24 by Chantelle Hanson RN amlodipine 10 mg PO DAILY coenzyme Q10 (Ultra CoQ10) PO cyclobenzaprine 10 mg PO Q8H PRN lisinopril 10 mg PO DAILY khmhnndk-rkc-pknix-vit K-lycop (One-A-Day Men's Multivitamin) 1 ea PO DAILY omeprazole 20 mg PO DAILY rosuvastatin 10 mg PO DAILY tramadol 50 mg PO Q8H PRN warfarin See Protocol 2MG X3DAYS/ 4MG X4DAYS; Nursing Note INR: 2.4 in therapeutic range Medications and supplements reviewed No changes in health, diet, medications, or supplements, Denies any signs and symptoms of bleeding or bruising or clotting. 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
== END 2024-03-08 09:12 | disposition home or self-care (01) ==
LOC: HO.ACS 08:53
PROVIDERS: PCP Internal Medicine Medical Oncology; Visit Provider Internal Medicine
DX: Z79.01 Long term (current) use of anticoagulants (principal)

== ENCOUNTER → 2024-03-08 08:53 | Outpatient (BNVA) | payer MEDICARE, SELFPAY | PROVIDERS: PCP Internal Medicine Medical Oncology; Visit Provider Internal Medicine | DX: I48.20 Chronic atrial fibrillation, unspecified (principal); Z79.01 Long term (current) use of anticoagulants; Z51.81 Encounter for therapeutic drug level monitoring | CPT/HCPCS: 85610; 99211 ==

== ENCOUNTER 2024-04-05 08:38 | Outpatient (AMB) | payer MEDICARE, SELFPAY ==
--- NOTE | 2024-04-05 08:51 | MHC.OFFVISCO ---
Intake Intake Visit Reasons: Anticoagulation Allergies Sulfa (Sulfonamide Antibiotics) [Sulfa (Sulfonamides)] Allergy (Mild, Verified 04/05/24 08:45) HIVES Medication List - Last Reconciled 04/05/24 by Jessica Faria RN amlodipine 15 mg PO DAILY coenzyme Q10 (Ultra CoQ10) PO cyclobenzaprine 10 mg PO Q8H PRN lisinopril 10 mg PO DAILY axdminln-eit-nzocr-vit K-lycop (One-A-Day Men's Multivitamin) 1 ea PO DAILY omeprazole 20 mg PO DAILY rosuvastatin 10 mg PO DAILY tramadol 50 mg PO Q8H PRN warfarin See Protocol 2MG X3DAYS/ 4MG X4DAYS; Nursing Note INR: 2.3- in therapeutic range of 2-3 Medications and supplements reviewed- no changes No changes in health, diet, medications, or supplements, Denies any signs and symptoms of bleeding or bruising or clotting. Bleeding, bruising, clotting discussed Nutritional guidance given Dose: 4mg x 3, 2mg x 4 F/U INR: 4 weeks Patient verbalizes understanding of instructions given Anti-Coag Initial Assessment Social Hx Patient Tobacco Use Status: Former Tobacco user alcohol intake: current Alcohol intake frequency: a few times a week Coding Level of Care Code Est Patient Level 1 Diagnoses Current use of anticoagulant therapy Z79.01 Results AMB INR Fingerstick AMB INR Fingerstick 2.3 Last Edit by Jessica Faria RN on 04/05/24 08:53 interface delay Assessment & Plan Assessment & Plan (1) Current use of anticoagulant therapy: 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
[2024-04-05 08:53] LABS: Prothrombin Time Whole Bld POC 28.1 sec (11.1-13.5); ~PT, ~INR - Anti Coag Clinic 2.3 (0.9-1.1)
== END 2024-04-05 08:59 | disposition home or self-care (01) ==
LOC: HO.ACS 08:38
PROVIDERS: PCP Internal Medicine Medical Oncology; Visit Provider Internal Medicine
DX: Z79.01 Long term (current) use of anticoagulants (principal)

== ENCOUNTER → 2024-04-05 08:38 | Outpatient (BNVA) | payer MEDICARE, SELFPAY | PROVIDERS: PCP Internal Medicine Medical Oncology; Visit Provider Internal Medicine | DX: I48.20 Chronic atrial fibrillation, unspecified (principal); Z79.01 Long term (current) use of anticoagulants; Z51.81 Encounter for therapeutic drug level monitoring | CPT/HCPCS: 85610; 99211 ==

== ENCOUNTER 2024-04-20 09:06 | Outpatient (REF) | payer MEDICARE, SELFPAY ==
[2024-04-20 09:24] LABS: MANUAL DIFF FLAG NO
[2024-04-20 10:56] LABS: Basophils Percent Auto 0.7 % (0-2); Eosinophils Absolute Auto 0.4 X10*3/uL (0.0-0.4); Eosinophils Percent Auto 6.8 % (0-4); Hematocrit 40.3 % (42.0-52.0); Hemoglobin 13.4 g/dl (14.0-18.0); Imm Gran Abs Auto 0.02 X10*3/uL (0.00-0.03); Imm Gran Pct Auto 0.3 % (0.0-0.4); Lymphocytes Absolute Auto 1.3 X10*3/uL (1.2-4.9); Mean Corpuscular HGB Conc 33.3 g/dl (31.0-36.0); Mean Corpuscular Hemoglobin 32.4 pg (27.0-33.0); Mean Corpuscular Volume 97.6 fL (80.0-98.0); Mean Platelet Volume 10.8 fL (9.4-12.4); Monocytes Absolute Auto 0.5 X10*3/uL (0.1-1.2); Monocytes Percent Auto 8.5 % (2-11); Neutrophils Absolute Auto 3.6 x10*3/uL (2.0-8.3); Neutrophils Percent Auto 61.7 % (45-73); Platelet Count 197 X10*3/uL (160-400); Red Blood Count 4.13 X10*6/uL (4.60-5.80); Red Cell Distribution Width 12.6 % (11.0-16.0); White Blood Count 5.8 X10*3/uL (4.8-10.8)
[2024-04-20 11:53] LABS: Alanine Aminotransferase 21 U/L (0-40); Albumin Level 4.1 g/dL (3.5-5.0); Alkaline Phosphatase 71 U/L (39-117); Anion Gap 11 (12-20); Aspartate Amino Transferase 24 U/L (5-37); Bilirubin Total 0.7 mg/dL (0.0-1.0); Blood Urea Nitrogen 20 mg/dL (9-16); Calcium 9.5 mg/dL (8.4-10.2); Carbon Dioxide 26 mmol/L (22-29); Chloride 105 mmol/L (96-108); Cholesterol 181 mg/dL (<200); Estimated Glomerular Filt Rate > 60; Glucose Fasting 101 mg/dL (60-99); HDL Cholesterol 58 mg/dL (>40); LDL Cholesterol Calculated 101 mg/dL (<100); Potassium 5.2 mmol/L (3.3-5.1); Sodium 137 mmol/L (135-145); Total Protein 6.6 g/dL (6.5-8.0); Triglycerides 112 mg/dL (<150)
[2024-04-20 12:04] LABS: Prostate Specific Antigen < 0.10 ng/mL (<0.05-4.0)
== END 2024-04-20 09:07 | disposition home or self-care (01) ==
LOC: HO.LAB 09:06
PROVIDERS: PCP Internal Medicine Medical Oncology; Visit Provider Internal Medicine Medical Oncology
DX: I10 Essential (primary) hypertension (principal); E78.2 Mixed hyperlipidemia; M17.0 Bilateral primary osteoarthritis of knee; I48.0 Paroxysmal atrial fibrillation; Z79.01 Long term (current) use of anticoagulants; Z85.46 Personal history of malignant neoplasm of prostate; Z12.5 Encounter for screening for malignant neoplasm of prostate
CPT/HCPCS: 36415; 80053; 80061; 84153; 85025

== ENCOUNTER 2024-05-10 08:45 | Outpatient (AMB) | payer MEDICARE, SELFPAY ==
--- NOTE | 2024-05-10 08:57 | MHC.OFFVISCO ---
Intake Intake Visit Reasons: Anticoagulation Allergies Sulfa (Sulfonamide Antibiotics) [Sulfa (Sulfonamides)] Allergy (Mild, Verified 05/10/24 08:53) HIVES Medication List - Last Reconciled 05/10/24 by Jessica Faria RN amlodipine 5 mg PO DAILY amlodipine 10 mg PO DAILY coenzyme Q10 (Ultra CoQ10) PO cyclobenzaprine 10 mg PO Q8H PRN lisinopril 10 mg PO DAILY dlodjhsr-cbe-hjgcc-vit K-lycop (One-A-Day Men's Multivitamin) 1 ea PO DAILY omeprazole 20 mg PO DAILY rosuvastatin 10 mg PO DAILY tramadol 50 mg PO Q8H PRN warfarin See Protocol 2MG X3DAYS/ 4MG X4DAYS; Nursing Note INR: 2.3- in therapeutic range of 2-3 Medications and supplements reviewed No changes in health, diet, medications, or supplements, Denies any signs and symptoms of bleeding or bruising or clotting. Bleeding, bruising, clotting discussed Nutritional guidance given Dose: 4mg x 3, 2mg x 4 F/U INR: 4 weeks Patient verbalizes understanding of instructions given pt states may have 'infection' in mouth, lower implants- has appt with dentist today, will call with new medications Anti-Coag Initial Assessment Social Hx Patient Tobacco Use Status: Former Tobacco user alcohol intake: current Alcohol intake frequency: a few times a week Coding Level of Care Code Est Patient Level 1 Diagnoses Current use of anticoagulant therapy Z79.01 Results AMB INR Fingerstick AMB INR Fingerstick 2.3 Last Edit by Jessica Faria RN on 05/10/24 08:58 interface delay Assessment & Plan Assessment & Plan (1) Current use of anticoagulant therapy: Code(s): Z79.01 - jail (current) use of anticoagulants Category: Medical
[2024-05-10 08:58] LABS: Prothrombin Time Whole Bld POC 27.2 sec (11.1-13.5); ~PT, ~INR - Anti Coag Clinic 2.3 (0.9-1.1)
== END 2024-05-10 09:04 | disposition home or self-care (01) ==
LOC: HO.ACS 08:45
PROVIDERS: PCP Internal Medicine Medical Oncology; Visit Provider Internal Medicine
DX: Z79.01 Long term (current) use of anticoagulants (principal)

== ENCOUNTER → 2024-05-10 08:45 | Outpatient (BNVA) | payer MEDICARE, SELFPAY | PROVIDERS: PCP Internal Medicine Medical Oncology; Visit Provider Internal Medicine | DX: I48.20 Chronic atrial fibrillation, unspecified (principal); Z79.01 Long term (current) use of anticoagulants; Z51.81 Encounter for therapeutic drug level monitoring | CPT/HCPCS: 85610; 99211 ==

== ENCOUNTER 2024-06-07 08:46 | Outpatient (AMB) | payer MEDICARE, SELFPAY ==
[2024-06-07 08:51] LABS: Prothrombin Time Whole Bld POC 26.3 sec (11.1-13.5); ~PT, ~INR - Anti Coag Clinic 2.2 (0.9-1.1)
--- NOTE | 2024-06-07 08:53 | MHC.OFFVISCO ---
Intake Intake Visit Reasons: Anticoagulation Allergies Sulfa (Sulfonamide Antibiotics) [Sulfa (Sulfonamides)] Allergy (Mild, Verified 06/07/24 08:47) HIVES Medication List - Last Reconciled 06/07/24 by Niya Malagon, RN amlodipine 5 mg PO DAILY amlodipine 10 mg PO DAILY coenzyme Q10 (Ultra CoQ10) PO cyclobenzaprine 10 mg PO Q8H PRN lisinopril 10 mg PO DAILY zzmypesr-sef-izzkl-vit K-lycop (One-A-Day Men's Multivitamin) 1 ea PO DAILY omeprazole 20 mg PO DAILY rosuvastatin 10 mg PO DAILY tramadol 50 mg PO Q8H PRN warfarin See Protocol 2MG X3DAYS/ 4MG X4DAYS; Nursing Note INR: 2.2 in therapeutic range 2-3 Medications and supplements reviewed No changes in health, diet, medications, or supplements, Denies any signs and symptoms of bleeding or bruising or clotting. 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
== END 2024-06-07 08:57 | disposition home or self-care (01) ==
LOC: HO.ACS 08:46
PROVIDERS: PCP Internal Medicine Medical Oncology; Visit Provider Internal Medicine
DX: Z79.01 Long term (current) use of anticoagulants (principal)

== ENCOUNTER → 2024-06-07 08:46 | Outpatient (BNVA) | payer MEDICARE, SELFPAY | PROVIDERS: PCP Internal Medicine Medical Oncology; Visit Provider Internal Medicine | DX: I48.20 Chronic atrial fibrillation, unspecified (principal); Z79.01 Long term (current) use of anticoagulants; Z51.81 Encounter for therapeutic drug level monitoring | CPT/HCPCS: 85610; 99211 ==

== ENCOUNTER → 2024-06-28 08:50 | Outpatient (REF) | payer MEDICARE, SELFPAY ==
--- NOTE | 2024-06-28 08:53 | CA_ITS ---
Transthoracic Echocardiogram Patient (Last, First, Middle): Donny Hale E Gender: Male Date of : 1935 Age: 88 Procedure Date: 06/28/2024 Procedure Type: Transthoracic Echocardiogram Location: OP Height: 175.26 cm Weight: 77.11 kg BSA: 1.93 m2 Heart Rate: 62 bpm BP: 156 / 60 mmHg Pt Skilled: PAUL Fisher MD: Arnaldo Carlson MD Medical Housekeeper: Arnaldo Carlson MD Symptoms: Z95.2 - Presence of prosthetic heart valve Study Quality: Adequate ECG Rhythm: Sinus Conclusions: - Normal left ventricular size and systolic function. There is mildly increased left ventricular wall thickness. The visually estimated ejection fraction is between 50-55%. - Apical wall motion due to RV pacing. - Mildly increased right ventricular cavity size. There is normal right ventricular systolic function. There is a pacemaker wire seen in the right ventricle. - There is mild to moderate aortic valve regurgitation. Findings Left Ventricle Normal left ventricular size and systolic function. There is mildly increased left ventricular wall thickness. The visually estimated ejection fraction is between 50-55%. Apical wall motion due to RV pacing. There is paradoxical septal motion consistent with a right ventricular pacemaker. Diastolic function is indeterminate on the basis of available data. Right Ventricle Mildly increased right ventricular cavity size. There is normal right ventricular systolic function. There is a pacemaker wire seen in the right ventricle. Atria Moderate biatrial enlargement. Aortic Valve A bioprosthetic aortic valve is present. The prosthetic aortic valve appears to be functioning normally. There is mild aortic valve stenosis. There is mild to moderate aortic valve regurgitation. Mitral Valve There is severe mitral annular calcification. There is no mitral valve regurgitation. There is no mitral valve stenosis. Pulmonic Valve The pulmonic valve is likely normal. Tricuspid Valve Normal tricuspid valve structure. There is trace tricuspid valve regurgitation. Tricuspid regurgitation envelope is inadequate for calculation of right ventricular systolic pressure. Normal right atrial pressure. Great Vessels All visible segments of the aorta are normal in size. Venous The inferior vena cava is normal in size and collapses greater than 50% with inspiration. Pericardium/Pleural There is no evidence of pericardial effusion. Prior Study Comparison No significant change compared to prior study dated: 05/20/2023. Measurements 2D Linear Measurements IVSd: 1.09 0.6-0.9/0.6-1.0 cm LVIDd: 4.88 3.9-5.3/4.2-5.9 cm LVIDd Index: 2.53 2.4-3.2/2.2-3.1 cm/m2 LVIDs: 3.10 2.0-3.6 cm LVPWd: 1.21 0.7-1.1 cm LA Diam: 4.50 2.7-3.8/3.0-4.0 cm LAIDs Index: 2.33 1.5-2.3 cm/m2 LV Mass: 264.09 67-162/88-224 g LV Mass Index: 136.83 43-95/49-115 g/m2 LVOT Diam: 1.90 3.0+(-)1.3 cm 2D Systolic Function EF 4C: 51.60 >55% EF 2C: 62.00 >55% EF BiP: 56.70 >55% Mitral Valve MV VTI: 0.65 MV Pk Miky: 1.63 MV Mn Miky: 0.97 MV Pk Grad: 11.00 MV Mn Grad: 5.00 MV Pk E: 1.42 MV PK A: 1.56 MV Decel Time: 420.00 E/A: 0.90 E'Lateral: 4.03 E'Medial: 4.03 E/E' Med: 35.20 E/E' Lat: 35.20 PHT: 123.00 MVA PHT: 1.79 MVA Continuity: 1.56 Decel Pepin: 3.37 Aortic Valve AoV Pk Miky: 2.45 AoV Mn Miky: 1.66 AoV VTI: 0.58 AoV Pk Grad: 24.00 Aov Mn Grad: 13.00 KAVITA Cont.VTI: 1.74 LVOT LVOT Pk Miky: 1.47 LVOT Mn Miky: 1.11 LVOT VTI: 0.36 LVOT Pk Grad: 9.00 LVOT Mn Grad: 5.00 LVOT Diam: 1.90 LVOT Area: 2.84 Diastolic Function MV Pk E: 1.42 MV Pk A: 1.56 E/A: 0.90 E'Medial: 4.03 E/E' Med: 35.20 E' Laterial: 4.03 E/E' Lat: 35.20 Right Ventricle TAPSE (mm): 27.20 TVS' Miky: 11.60 Tricuspid Valve TR Pk Miky: 2.32 TR Pk Grad: 22.00 Great Vessels Aorta Sinus of Valsalva: 3.10 2.0-3.5 cm Ao Asc: 3.20 2.1-3.4 cm Pulmonary Valve PV Pk Miky: 1.05 Peak PV Grad: 4.00 Updated in Other Vendor System with Status of Final Arnaldo Carlson MD electronically signed on 06/28/2024 9:20:47 PM with status of Final
== END ==
LOC: HO.CARD 08:50
PROVIDERS: PCP Internal Medicine Medical Oncology; Visit Provider Internal Medicine Cardiovascular Disease
DX: Z95.2 Presence of prosthetic heart valve (principal)
CPT/HCPCS: 93306

== ENCOUNTER → 2024-06-28 08:53 | Outpatient (BNV) | payer MEDICARE, SELFPAY | PROVIDERS: PCP Internal Medicine Medical Oncology; Visit Provider Internal Medicine Cardiovascular Disease | DX: I35.2 Nonrheumatic aortic (valve) stenosis with insufficiency (principal); Z95.3 Presence of xenogenic heart valve | CPT/HCPCS: 93306 ==

== ENCOUNTER 2024-07-05 08:52 | Outpatient (AMB) | payer MEDICARE, SELFPAY ==
--- NOTE | 2024-07-05 09:12 | MHC.OFFVISCO ---
Intake Intake Visit Reasons: Anticoagulation Allergies Sulfa (Sulfonamide Antibiotics) [Sulfa (Sulfonamides)] Allergy (Mild, Verified 07/05/24 08:56) HIVES Medication List - Last Reconciled 07/05/24 by Chantelle Hanson RN amlodipine 5 mg PO DAILY amlodipine 10 mg PO DAILY coenzyme Q10 (Ultra CoQ10) PO cyclobenzaprine 10 mg PO Q8H PRN lisinopril 10 mg PO DAILY cnbqnwoe-kuk-gzomj-vit K-lycop (One-A-Day Men's Multivitamin) 1 ea PO DAILY omeprazole 20 mg PO DAILY rosuvastatin 10 mg PO DAILY tramadol 50 mg PO Q8H PRN warfarin See Protocol 2MG X3DAYS/ 4MG X4DAYS; Nursing Note INR: 2.3 in therapeutic range Medications and supplements reviewed No changes in health, diet, medications, or supplements, Denies any signs and symptoms of bleeding or bruising or clotting. Bleeding, bruising, clotting discussed Nutritional guidance given Dose: KEEP SAME DOSE 4MG X 3 DAYS/ 2MG X 4 DAYS F/U INR: 1 MONTH Patient verbalizes understanding of instructions given Anti-Coag Initial Assessment Social Hx Patient Tobacco Use Status: Former Tobacco user alcohol intake: current Alcohol intake frequency: a few times a week Coding Level of Care Code Est Patient Level 1 Diagnoses Current use of anticoagulant therapy Z79.01 Results AMB INR Fingerstick AMB INR Fingerstick 2.3 Last Edit by Chantelle Hanson RN on 07/05/24 09:05 MANUAL ENTRY Assessment & Plan Assessment & Plan (1) Current use of anticoagulant therapy: 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
[2024-07-05 09:53] LABS: Prothrombin Time Whole Bld POC 27.6 sec (11.1-13.5); ~PT, ~INR - Anti Coag Clinic 2.3 (0.9-1.1)
== END 2024-07-05 09:15 | disposition home or self-care (01) ==
LOC: HO.ACS 08:52
PROVIDERS: PCP Internal Medicine Medical Oncology; Visit Provider Internal Medicine
DX: Z79.01 Long term (current) use of anticoagulants (principal)

== ENCOUNTER → 2024-07-05 08:52 | Outpatient (BNVA) | payer MEDICARE, SELFPAY | PROVIDERS: PCP Internal Medicine Medical Oncology; Visit Provider Internal Medicine | DX: I48.20 Chronic atrial fibrillation, unspecified (principal); Z79.01 Long term (current) use of anticoagulants; Z51.81 Encounter for therapeutic drug level monitoring | CPT/HCPCS: 85610; 99211 ==

== ENCOUNTER 2024-07-21 08:46 | Outpatient (REF) | payer MEDICARE, SELFPAY ==
[2024-07-21 09:08] LABS: MANUAL DIFF FLAG NO
[2024-07-21 10:10] LABS: Basophils Absolute Auto 0.1 X10*3/uL (0.0-0.2); Basophils Percent Auto 0.8 % (0-2); Eosinophils Absolute Auto 0.2 X10*3/uL (0.0-0.4); Eosinophils Percent Auto 3.6 % (0-4); Hematocrit 39.2 % (42.0-52.0); Hemoglobin 12.6 g/dl (14.0-18.0); Imm Gran Abs Auto 0.02 X10*3/uL (0.00-0.03); Imm Gran Pct Auto 0.3 % (0.0-0.4); Lymphocytes Absolute Auto 1.4 X10*3/uL (1.2-4.9); Lymphocytes Percent Auto 23.1 % (20-40); Mean Corpuscular HGB Conc 32.1 g/dl (31.0-36.0); Mean Corpuscular Hemoglobin 31.6 pg (27.0-33.0); Mean Corpuscular Volume 98.2 fL (80.0-98.0); Mean Platelet Volume 10.7 fL (9.4-12.4); Monocytes Absolute Auto 0.5 X10*3/uL (0.1-1.2); Neutrophils Absolute Auto 3.7 x10*3/uL (2.0-8.3); Neutrophils Percent Auto 63.2 % (45-73); Platelet Count 200 X10*3/uL (160-400); Red Blood Count 3.99 X10*6/uL (4.60-5.80); Red Cell Distribution Width 12.8 % (11.0-16.0); White Blood Count 5.9 X10*3/uL (4.8-10.8)
[2024-07-21 10:54] LABS: Alanine Aminotransferase 30 U/L (0-40); Albumin Level 4.1 g/dL (3.5-5.0); Alkaline Phosphatase 65 U/L (39-117); Anion Gap 10 (12-20); Aspartate Amino Transferase 31 U/L (5-37); Bilirubin Total 0.5 mg/dL (0.0-1.0); Blood Urea Nitrogen 21 mg/dL (9-16); Calcium 9.9 mg/dL (8.4-10.2); Carbon Dioxide 27 mmol/L (22-29); Chloride 108 mmol/L (96-108); Cholesterol 171 mg/dL (<200); Estimated Glomerular Filt Rate 56; Glucose Fasting 108 mg/dL (60-99); HDL Cholesterol 61 mg/dL (>40); LDL Cholesterol Calculated 94 mg/dL (<100); Sodium 140 mmol/L (135-145); Total Protein 6.7 g/dL (6.5-8.0); Triglycerides 80 mg/dL (<150)
--- OUTSIDE RECORDS SUMMARY | 2024-07-21 23:11 | XMS_ITS ---
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 Name Role Phone Manolo Barton Primary Care Provider Allergies Allergen (clinical drug ingredient) Drug/Non Drug Allergy documented on EMR Reaction Allergy Type Onset Date Status sulfacetamide Sulfacetamide Unknown Drug Allergy Active REASON FOR VISIT Hypertension, Hyperlipidemia, Atrial fibrillation, Anticoagulation, History of prostate cancer, TAVR, Lumbar radiculopathy Medications Medication SIG (Take, Route, Frequency, Duration) Notes Start Date End Date Status amLODIPine Besylate 10 MG Oral Active Glucosamine Chondr 1500 Complx - as directed Orally Active Rosuvastatin Calcium 10 MG TAKE 1 TABLET EVERY DAY Active Diclofenac Sodium 1 % Transdermal Active Lisinopril 10 MG TAKE 1 TABLET EVERY DAY Active Warfarin Sodium 4 MG TAKE 4MG (1 TABLET) FRIDAY, FRIDAY, FRIDAY AND TAKE 2MG (1/2 TABLET) FRIDAY, FRIDAY, FRIDAY, FRIDAY Active Omeprazole 20 MG TAKE 1 CAPSULE EVERY DAY Active Social History Tobacco Use: Social History Observation Description Date Details (start date - stop date) Former Smoker NA - NA Sex Assigned At : Social History Observation Description Sex Assigned At Male Tobacco Use/Smoking Question Answer Notes Patient is a former smoker How long has it been since you last smoked? > 10 years Additional Findings: Tobacco Non-User Ex-cigaret te smoker Vital Signs Temperature 98.2 degrees Fahrenheit 08/12/19 24 Blood pressure systolic 130 mm Hg 08/12/19 24 Blood pressure diastolic 40 mm Hg 024 Heart Rate 70 /min 08/12/2023 Height 67 in 08/12/2023 Weight 172 lbs 08/12/2023 BMI 26.94 kg/m2 08/12/2023 Encounters Encounter Location Date Provider Diagnosis Manolo Barton III, MD [address] [place] [address] DR [place], SA[place] [id number] 08/12/2023 Manolo Barton Essential hypertensi on I10 ; Mixed hyperlipidemia E78.2 ; Primary osteoarthritis of both knees M17.0 ; Paroxysmal atrial fibrillation I48.0 ; Chronic anticoagulation Z79.01 ; History of prostate cancer Z85.46 ; Pacemaker Z95.0 ; 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 He will be seen frequently. 08/12/2023 Mixed hyperlipidemia (ICD-10 - E78.2) A recent lipid profile shows his lipids to be in range. No change in his regimen was needed today. 08/12/2023 Primary osteoarthrit is of both knees (ICD-10 - M17.0) The scars on both knees have healed. He has much less pain but mild crepitus. 08/12/2023 Paroxysmal atrial fibrillation (ICD-10 - I48.0) His heart rate is well controlled.. His heart rate is regular with no ectopy. 08/12/2023 Chronic anticoagulation (ICD-10 - Z79.01) He will have 3 more days of enoxaparin and then another PT/INR while on his old dose of warfarin. 08/12/2023 History of prostate cancer (ICD-10 - Z85.46) His PSA has been normal and there is no sign of recurrent prostate cancer at this time. 08/12/2023 Pacemaker (ICD-10 - Z95.0) His pacemaker appears to be functioning well. 08/12/2023 S/P TAVR (transcatheter aortic valve replacement) (ICD-10 - Z95.2) The aortic valve appears to be functioning normally. He will see his bark scaler, Dr. Giles, tomorrow. 08/12/2023 Former smoker (ICD-1 0 - Z87.891) He is highly motivated not to smoke. He has a plan to prevent relapse in times of stress or illness. Plan Of Treatment Medication Medication Name Sig Start Date Stop Date Notes amLODIPine Besylate 10 MG Oral Glucosamine Chondr 1500 Comp lx - as directed Orally Rosuvastatin Calcium 10 MG TAKE 1 TABLET EVERY DAY Diclofenac Sodium 1 % Transdermal Lisinopril 10 MG TAKE 1 TABLET EVERY DAY Warfarin Sodium 4 MG TAKE 4MG (1 TABLET) FRIDAY, FRIDAY, FRIDAY AND TAKE 2MG (1/2 TABLET) FRIDAY, FRIDAY, FRIDAY, FRIDAY Omeprazole 20 MG TAKE 1 CAPSULE EVERY DAY Pending Test Test Name Order Date PROFILE, FASTING (COMPREHENSIVE METABOLI C) 08/12/2023 PSA, TOTAL 08/12/2023 CBC w DIFF 08/12/2023 Lipid Panel 08/12/2023 Next Appt Details Follow Up: January , Reason: OV review labs Provider Name:Manolo Barton, 07/22/2024 09:00:00 AM, [address] [place] [address] [address] ST[address], [place], [phone], Provider Name:Manolo Barton, 04/26/2025 02:30:00 PM, [address] [place] [address] [address] STANLEY, [place], [phone], Progress Notes * Donny HALE EDOB: (87 yo M)Acc No.[id number]:08/12/2023 Progress Notes Patient:?Beny Hale Provider:?Manolo Barton MD :1935???Age:87 Y???Sex:Male Slade e:08/12/2023 Address:[address] [place] [address] [place] [id number] Subjective: * Chief Complaints: * ???HypertensionHyperlipidemi aAtrial fibrillationAnticoagulationHistory of prostate cancerTAVRLumbar radiculopathy * HPI: ???COVID-19 Screening:?Questions?Have you experienced fever, chills, cough, sore throat, shortness of breath, difficulty breathing, muscle aches, loss of taste or smell??No ?Have you been exposed to the virus within the last 10 days??No ?Have you travelled internationally in the last 10 days??No ?Have you been exposed to COVID-19 in the past??No ? He returns for mannagement of his medical issues prior to spendingg the winter in [place] going to leave on August 15, 2023 to return in December. He is feelingg well. He was in normal sinus rhythm today. He has had no bleeeding. He rises from sleep twice a night to urinate. His pacemaker is functioning normally. The arthritis in his knees is mild to moderate. * ROS:?General/Constitutional:?pain?Both knees, otherwise only normal aches and pains.?Chills?denies.?Fatigue?admits.?Fever?denies.?ENT:?Decreased hearing?mild.?Respiratory:?Cough?denies.?Cardiovascular:?Chest pain with exertion?denies.?Dyspnea on exertion?denies.?Shortness of breath?denies.?Gastrointestinal:?Constipation?occasional.?Decreased appetite?denies.?Diarrhea?denies.?Heartburn?denies.?Nausea?denies.?Rectal bleeding?denies.?Vomiting?denies.?Hematology:?bruising?denies.?petechiae?denies.?Swollen glands?none have been noted.?Genitourinary:?Frequent urination?twice a night.?Musculoskeletal:?Muscle aches?denies.?Painful joints?denies.?Sciatica?denies.?Weakness?denies.?Skin:?Itching?denies.?Rash?denies.?Skin lesion(s)?denies.?Neurologic:?Difficulty speaking?denies.?Dizziness?denies.?Headache?denies.?Low back pain?denies.?Psychiatric:?Depressed mood?denies.? * Medical History:? * Surgical History:?Aortic rosanne ve replaced at [facility]: bioprosthetic TAVR 05/2019pacemaker replaced 2018Prostate removed 2000left knee total replacement Dr. Isaac 05/2020laser surgery right eye 07/2020Complete dental extractions 04/17/21 * Hospitalization/Major Diagno stic Procedure:?Denies Past Hospitalization * Family History:?Father: dece ased.?Mother: .? He is not aware of any familial inherited cancer syndromes. He is not aware of any family history of mental illness or substance use disorder or addiction. 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 He has no toxic exposures. He is a . He does not smoke or drink. * Medications:?TakingGlucosami ne Chondr 1500 Complx - Capsule as directed Orally amLODIPine Besylate 10 MG Tablet Oral Diclofenac Sodium 1 % Gel Transdermal Rosuvastatin Calcium 10 MG Tablet TAKE 1 TABLET EVERY DAY Lisinopril 10 MG Tablet TAKE 1 TABLET EVERY DAY Omeprazole 20 MG Capsule Delayed Release TAKE 1 CAPSULE EVERY DAY Warfarin Sodium 4 MG Tablet TAKE 4MG (1 TABLET) FRIDAY, FRIDAY, FRIDAY AND TAKE 2MG (1/2 TABLET) FRIDAY, FRIDAY, FRIDAY, FRIDAY Medication List reviewed and reconciled with the patientTaking Glucosamine Chondr 1500 Complx - Capsule as directed Orally Taking amLODIPine Besylate 10 MG Tablet Oral Taking Diclofenac Sodium 1 % Gel Transdermal Taking Rosuvastatin Calcium 10 MG Tablet TAKE 1 TABLET EVERY DAY Taking Lisinopril 10 MG Tablet TAKE 1 TABLET EVERY DAY Taking Omeprazole 20 MG Capsule Delayed Release TAKE 1 CAPSULE EVERY DAY Taking Warfarin Sodium 4 MG Tablet TAKE 4MG (1 TABLET) FRIDAY, FRIDAY, FRIDAY AND TAKE 2MG (1/2 TABLET) FRIDAY, FRIDAY, FRIDAY, FRIDAY Medication List reviewed and reconciled with the patient * Allergies:?Sulfacetamideno[A llergies Verified] Objective: * Vitals:?Ht: 67, Wt:172, BMI: 26.94, BP:130/40, HR:70, Temp:98.2, Wt-k.02. * ???Past Orders: Lab:INR WHOLE BLOOD POC * Order Date 07/11/2023 06/06/2023 05/09/2023 INR WHOLE BLOOD POC 2.1?H (Ref Range: 0.9-1.1) 2.0?H (Ref Range: 0.9-1.1) 1.9?H (Ref Range: 0.9-1.1) * Lab:Prothrombin Time Whole B ld POC * Order Date 07/11/2023 06/06/2023 05/09/2023 Prothrombin Time Whole Bld POC 25.7?H (Ref Range: 11.1-13.5 sec) 23.8?H (Ref Range: 11.1-13.5 sec) 22.9?H (Ref Range: 11.1-13.5 sec) * Examination: ???General Examination: ?GENERAL APPEARANCE:?pleasant, well nourished, well developed, in no acute distress, calm and relaxed , overweight , elderly man.?HEAD:?atraumatic, normocephalic.?EYES:?eomi, perrla, anicteric, conjugate.?EARS:?normal.?NOSE:?septum intact.?ORAL CAVITY:?normal, unremarkable.?NECK/THYROID:?no jugular venous distention, no carotid bruit, thyroid normal.?LYMPH NODES:?no enlarged lymph nodes,spleen normal.?SKIN:?no suspicious lesions, anicteric.?HEART:?no clicks, gallops, murmurs, or rubs, regular rhythm, S1, S2 normal, no s3, or vascular bruits.?LUNGS:?clear to auscultation .?BREASTS:??no masses palpable bilaterally.?ABDOMEN:?bowel sounds normal, no ascites, no organomegaly, no mass , overweight.?RECTAL EXAM:?not examined.?MUSCULOSKELETAL:?extremities unremarkable, no clubbing, cyanosis or edema.?PERIPHERAL PULSES:?normal.?NEUROLOGIC:?alert and oriented, cranial nerves 2-12 grossly intact, deep tendon reflexes 2+ symmetrical, motor strength normal upper and lower extremities, sensory exam intact, Mild defects in memory.?PSYCH:?alert, oriented.? Assessment: * Assessment: 1.?Essential hypertension - I10 (Primary), His blood pressure is 130/40 and no change in his regimen as needed. He will be seen frequently.?2.?Mixed hyperlipidemia - E78.2, A recent lipid profile shows his lipids to be in range. No change in his regimen was needed today.?3.?Primary osteoarthritis of both knees - M17.0, The scars on both knees have healed. He has much less pain but mild crepitus.?4.?Paroxysmal atrial fibrillation - I48.0, His heart rate is well controlled.. 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 He will see his bark scaler, Dr. Giles, tomorrow.?9.?Former smoker - Z87.891, He is highly motivated not to smoke. He has a plan to prevent relapse in times of stress or illness.? Plan: * Treatment: 2.?Mixed hyperlipidemia?LAB: PROFILE, FASTING (COMPREHENSIVE METABOLIC) ?LAB: PSA, TOTAL ?LAB: CBC w DIFF ?LAB: Lipid Panel 3.?Primary osteoarthritis of both knees?LAB: PROFILE, FASTING (COMPREHENSIVE METABOLIC) ?LAB: PSA, TOTAL ?LAB: CBC w DIFF ?LAB: Lipid Panel 4.?Paroxysmal atrial fibrill ation?LAB: PROFILE, FASTING (COMPREHENSIVE METABOLIC) ?LAB: PSA, TOTAL ?LAB: CBC w DIFF ?LAB: Lipid Panel 5.?Chronic anticoagulation?LAB: PROFILE, FASTING (COMPREHENSIVE METABOLIC) ?LAB: PSA, TOTAL ?LAB: CBC w DIFF ?LAB: Lipid Panel 6.?History of prostate cance r?LAB: PSA, TOTAL * Procedure Codes:? * Preventive Medicine:? ??Counseling:?Care goal follow-up plan:?Counseling for abnormal BMI given?Yes ?Above Normal BMI Follow-up?Dietary management education, guidance, and counseling, Dietary needs education ?Smoking/Tobacco Use?Patient counseled on the dangers of tobacco use and urged to quit.?08/12/2023 * Follow Up:?January (Reason: OV review labs ) * Images: * Sign off status: Completed true * Provider:?Manolo Barton MD Date:?09/2023 Generated for Romel russell/Faxing/eTransmitting on:?07/21/2024 11:10 PM EST History and Physical Notes * HPI (History of Present Illness) Category Sub-Category Detail Notes COVID-19 Screening Questions Have you had any new onset fever, chills, cough, congestion, sore throat, shortness of breath, muscle aches?: No Have you been exposed to the virus with n the last 10 days?: No Have you travelled internationally in [facility] last 10 days?: No Have you been exposed to COVID-19 in the past?: No Examination Category Sub-Category Detail Notes General Examination GENERAL APPEARANCE: pleasant , well nourished, well developed, in no acute distress, calm and relaxed , overweight , elderly man HEAD: atraumatic, normocep halic EYES: eomi, perrla, anicte bianca, conjugate EARS: normal NOSE: septum intact NECK/THYROID: no jugular venous di stention, no carotid bruit, thyroid normal HEART: no clicks, gallops, murmurs, or rubs, regular rhythm, S1, S2 normal, no s3, or vascular bruits LUNGS: clear to auscultatio n ABDOMEN: bowel sounds normal, no ascites, no organomegaly, no mass , overweight NEUROLOGIC: alert and oriented, cranial nerves 2-12 grossly intact, deep tendon reflexes 2+ symmetrical, motor strength normal upper and lower extremities, sensory exam intact, Mild defects in memory SKIN: no suspicious lesion s, anicteric PERIPHERAL PULSES: normal BREASTS: no masses palpable b ilaterally MUSCULOSKELETAL: extremities unremark able, no clubbing, cyanosis or edema LYMPH NODES: no enlarged lymph no connie,spleen normal RECTAL EXAM: not examined PSYCH: alert, oriented ORAL CAVITY: normal, unremarkable
--- OUTSIDE RECORDS SUMMARY | 2024-07-21 23:11 | XMS_ITS | Continuity of Care Document ---
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 Name Role Phone DO Roman Lawrence Unavailable Unavailable Allergies, Adverse Reactions, Alerts Substance Reaction Status Criticality Sulfa (Sulfonamide Antibiotics) Active No Information Medications Medication Instructions Dosage Effective Dates (start - stop) Status Comments warfarin 4 mg tablet take 1 tablet by oral route M, W, F, 1/2 tab other days - Active rosuvastatin 10 mg tablet take 1 tablet by oral route every day 10 MG - Active omeprazole 20 mg delayed release,disintegrating tablet one tablet daily - Active lisinopril 20 mg tablet take 1 tablet by oral route every day 20 MG - Active hydrochlorothiazide 12.5 mg tablet take 1 tablet by oral route every day 12.5 MG - Active amlodipine 10 mg tablet take 1 tablet by oral route every day 10 MG - Active Procedures Procedure Date OFFICE/OUTPATIENT VISIT, EST OFFICE/OUTPATIENT VISIT, EST Advance Directives Directive Yes / No Effective Date File Name No Information Encounters Encounter Description Practice Location Reason(s) For Visit Diagnoses Date Provider Providers Copied on Encounter OFFICE/OUTPA TIENT VISIT, EST Lauren [facility], [address], [place], [place], [id number] , [place] tel:[phone] [facility] Cardiac Clearance (chief complaint) Hyperlipidemia, unspecifiedNonrh eumatic aortic (valve) insufficiencyPar oxysmal atrial fibrillationOccl usion and stenosis of bilateral carotid arteriesPresence of cardiac pacemakerPresenc e of prosthetic heart valve 4 DO Teo Roman. [address] [place] [address], [facility] by [facility], [place]. tel:[phone] Referring Provider: Teo Roman DO, [address], [place], [place], Replaced by [facility]. tel:[phone] OFFICE/OUTPA TIENT VISIT, [facility] [employer] [facility], [facility] [address], [place], [place], [id number] , tel: [phone] [facility] 1 year follow up (chief complaint) Hyperlipidemia, unspecifiedNonrh eumatic aortic (valve) insufficiencyPar oxysmal atrial fibrillationOccl usion and stenosis of bilateral carotid arteriesPresence of cardiac pacemakerPresenc e of prosthetic heart valve 4 DO Teo Roman. [address], [place], [place], Replaced by [facility], . tel:[phone] Referring Provider: Teo Roman DO, [address], [place], [place], Replaced by [facility]. tel:[phone] [place] [facility] [employer], [address] [facility], [place], [place], [id number] , tel: [phone] [facility] Nonrheumatic aortic (valve) insufficiencyPre sence of cardiac pacemakerOcclusi on and stenosis of bilateral carotid arteriesPresence of prosthetic heart valveHyperlipide mercedes, unspecifiedParox ysmal atrial fibrillation Oct- 3 DO Teo Roman. [address], [place] by [facility], [place]. tel:[phone] Referring Provider: Teo Roman DO, [address], [place], [place], Replaced by [facility]. tel:[phone] Family History Family Member Type Diagnosis Age At Onset No Information Payers Payer name Insurance type Covered republican ID Authoriza tion(s) Medicare MB [id number] [employer] [id number] Social History Type Description Quantity Date Captured Comments Alcohol Use Details Unknown Caffeine Use Details Unknown Tobacco Use Status No Information Smoking Status No Information Sex Male Sexual Orientation Don't Know Gender Identity Male Vital Signs Date / Time: Height Weight BMI Pulse Rate Blood Pressure Temperature Respiratory Rate Body Surface Area Head Circumference Head Circ. Percentile Wt./[place]. Percentile BMI percentile Pulse Ox Inhaled Ox 11:10 AM 80.830 kg (178.20 lbs) 70 /min 150/62 mm[Hg] 98.00 F 18 /min 98 % 11:13 AM 142/60 mm[Hg] Chief Complaint And Reason For Visit From encounter dated '11/27/2023 11:15'. Cardiac Clearance (chief complaint) Reason For Referral Reason For Referral No Information Plan Of Treatment Date Type Action Status Goal Zoster vaccine (). Due on due Goal Tetanus Toxoid Vaccine. Due on due Goal Prevnar 13. Due on due Goal Depression screening. Due on due Goal FOBT. Due on due Goal Form for Advanced Directives . Due on due Goal Pneumococcal vaccine. Due on due Goal Influenza vaccine. Due on due Goal Colonoscopy. Due on due Goal Annual Care Visit. Due on due Goal Cognitive assessment. Due on due Goal PSA. Due on due Goal PSA. Due on due Goal Prevnar 13. Due on due Goal Annual Care Visit. Due on due Goal Zoster vaccine (). Due on due Goal Cognitive assessment. Due on due Goal Influenza vaccine. Due on due Goal Colonoscopy. Due on 024 due Goal Tetanus Toxoid Vaccine. Due on due Goal FOBT. Due on due Goal Form for Advanced Directives . Due on due Goal Pneumococcal vaccine. Due on due Goal Depression screening. Due on due Goal FOBT. Due on due Goal PSA-2. Due on du e Goal Unhealthy drug use screening . Due on due Goal Pneumococcal vaccine. Due on due Goal Colonoscopy. Due on 023 due Goal Form for Advanced Directives . Due on due Goal Chronic Care Man agement (CCM) Program. Due on due Goal Cognitive assessment. Due on due Goal Tdap. Due on due Goal Zoster vaccine. Due on due Goal Tetanus Toxoid Vaccine. Due on due Goal Depression screening. Due on due Goal Annual Care Visit. Due on due Goal Zoster vaccine (). Due on due Goal Prevnar 13. Due on due Goal PSA. Due on due Goal Abdominal ultrasound. Due on due Goal Influenza vaccine. Due on due Appointment Donny Hale BOOKED History Of Present Illness Encounter Date Complaint History Of Prese nt Illness Cardiac Clearance 1 year follow up Functional Status Date Functional Assessmen t No Information Instructions Date Instruction Additional Infor mation No Information Assessments Type Assessment Date assessment Hyperlipidemia, unspecified assessment Nonrheumatic aortic (valve) insu fficiency assessment Paroxysmal atrial fibrillation A assessment Occlusion and stenosis of bilate ral carotid arteries assessment Presence of cardiac pacemaker Ap assessment Presence of prosthetic heart rosanne ve Patient Care Teams Name Effective Dates (start - stop) Status Members No Information
--- OUTSIDE RECORDS SUMMARY | 2024-07-21 23:11 | XMS_ITS ---
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 Name Role Phone Manolo Barton Primary Care Provider REASON FOR VISIT annual exam Social History Sex Assigned At : Social History Observation Description Sex Assigned At Male Encounters Encounter Location Date Provider Diagnosis Manolo Barton III, MD [address] [place] [address] [place] [address] 01/23/2024 Manolo Barton Plan Of Treatment Next Appt Details Provider Name:Manolo Barton, 07/22/2024 09:00:00 AM, [address] [place] [address] [place], [address], Provider Name:Manolo Barton, 04/26/2025 02:30:00 PM, [address] [place] [address] [place], [address], Progress Notes * Donny HALE EDOB: (88 yo M)Acc No.[id number]:01/23/2024 Progress Notes Patient:?PARKERWALTERAllen LEWISibis xiong Brandy Provider:?Manolo Barton MD :[id number]???Age:88 Y???Sex:Male Slade e:01/23/2024 Address:[address] [place] [address] [id number] Subjective: * Chief Complaints: * ???1. Annual exam. * Medical History:? Objective: * Vitals:? Assessment: Plan: * Treatment: * Images: * The named appointment provid er may or may not be the originator of this progress note, and it is not deemed complete until electronically signed by the appointment provider. Sign off status: Pending * Provider:?Manolo Barton MD Date:?01/09 Generated for Romel russell/Zaire/Sherismitting on:?07/21/2024 11:10 PM EST
--- OUTSIDE RECORDS SUMMARY | 2024-07-21 23:11 | XMS_ITS | Patient Health Record ---
Author Organization Manolo Barton III, MD Address [address] [place] [address] [place] [address] Care Team Providers Care Tar Boiler Name Role Phone Manolo Barton Primary Care Provider Allergies Allergen (clinical drug ingredient) Drug/Non Drug Allergy documented on EMR Reaction Allergy Type Onset Date Status sulfacetamide Sulfacetamide Unknown Drug Allergy Active Results Component Value Reference Range Notes URINE DIP STICK Reviewed date:04/21/2024 02:46:10 PM Interpretation: Performing Lab: Notes/Report: SG 1.020 1.005 - 1.025 pH 5.0 5.0 - 9.0 GEOVANNA Negative Negative - NIT Negative Negative - PRO 15 Negative - Trace GLU Negative Negative - KET Negative Negative - UBG 0.2 0.1 - 1.8 ANAIS Negative 0.2 - 1.3 BLD 50 Negative - INR WHOLE BLOOD POC Reviewed date:08/17/2023 06:55:45 PM Interpretation: Performing Lab:[facility], [address] [place] [phone] Notes/Report: PT, INR - Anti [facility]ag Clinic 2.4 0.9-1.1 METER #: [id number] INTERNATIONAL NORMALIZED RATIO (INR) REFERENCE RANGES Reference Range For patients not on anticoagulant therapy: 0.9 - 1.1 INR ranges for oral anticoagulant therapy: For prevention and treatment of venous thrombosis and pulmonary embolism: 2.0 - 3.0 For acute myocardial infarction with aspirin therapy: 2.0 - 3.0 For acute myocardial infarction without aspirin therapy: 3.0 - 4.0 For patients with mechanical prosthetic heart valves: 2.5 - 3.5 Prothrombin Time Whole Bld P OC Reviewed date:08/17/2023 06:55:45 PM Interpretation: Performing Lab:[facility], [address] [place] [phone] Notes/Report: Prothrombin Time Whole Bld POC 29.0 11.1-13.5 sec INR WHOLE BLOOD POC Reviewed date:01/09/2024 08:46:27 PM Interpretation: Performing Lab:[facility], [address] [place] [phone] Notes/Report: PT, INR - Anti Coag Clinic 2.3 0.9-1.1 METER #: [id number] INTERNATIONAL NORMALIZED RATIO (INR) REFERENCE RANGES Reference Range For patients not on anticoagulant therapy: 0.9 - 1.1 INR ranges for oral anticoagulant therapy: For prevention and treatment of venous thrombosis and pulmonary embolism: 2.0 - 3.0 For acute myocardial infarction with aspirin therapy: 2.0 - 3.0 For acute myocardial infarction without aspirin therapy: 3.0 - 4.0 For patients with mechanical prosthetic heart valves: 2.5 - 3.5 Prothrombin Time Whole Bld P OC Reviewed date:01/09/2024 08:46:27 PM Interpretation: Performing Lab:[facility], [address] [place] [phone] Notes/Report: Prothrombin Time Whole Bld POC 27.4 11.1-13.5 sec INR WHOLE BLOOD POC Reviewed date:02/09/2024 04:23:18 PM Interpretation: Performing Lab:[facility], [address] [place] [phone] Notes/Report: PT, INR - Anti Coag Clinic 2.4 0.9-1.1 METER #: [id number] INTERNATIONAL NORMALIZED RATIO (INR) REFERENCE RANGES Reference Range For patients not on anticoagulant therapy: 0.9 - 1.1 INR ranges for oral anticoagulant therapy: For prevention and treatment of venous thrombosis and pulmonary embolism: 2.0 - 3.0 For acute myocardial infarction with aspirin therapy: 2.0 - 3.0 For acute myocardial infarction without aspirin therapy: 3.0 - 4.0 For patients with mechanical prosthetic heart valves: 2.5 - 3.5 Prothrombin Time Whole Bld P OC Reviewed date:02/09/2024 04:23:19 PM Interpretation: Performing Lab:[facility], [address] [place] [phone] Notes/Report: Prothrombin Time Whole Bld POC 29.2 11.1-13.5 sec INR WHOLE BLOOD POC Reviewed date:03/10/2024 01:09:30 PM Interpretation: Performing Lab:[facility], [address] [place] [phone] Notes/Report: PT, INR - Anti Coag Clinic 2.4 0.9-1.1 METER #: [id number] INTERNATIONAL NORMALIZED RATIO (INR) REFERENCE RANGES Reference Range For patients not on anticoagulant therapy: 0.9 - 1.1 INR ranges for oral anticoagulant therapy: For prevention and treatment of venous thrombosis and pulmonary embolism: 2.0 - 3.0 For acute myocardial infarction with aspirin therapy: 2.0 - 3.0 For acute myocardial infarction without aspirin therapy: 3.0 - 4.0 For patients with mechanical prosthetic heart valves: 2.5 - 3.5 Prothrombin Time Whole Bld P OC Reviewed date:03/10/2024 01:09:30 PM Interpretation: Performing Lab:[facility], [address] [place] [phone] Notes/Report: Prothrombin Time Whole Bld POC 29.2 11.1-13.5 sec INR WHOLE BLOOD POC Reviewed date:04/05/2024 12:02:10 PM Interpretation: Performing Lab:[facility], [address] [place] [phone] Notes/Report: PT, INR - Anti Coag Clinic 2.3 0.9-1.1 METER #: [id number] INTERNATIONAL NORMALIZED RATIO (INR) REFERENCE RANGES Reference Range For patients not on anticoagulant therapy: 0.9 - 1.1 INR ranges for oral anticoagulant therapy: For prevention and treatment of venous thrombosis and pulmonary embolism: 2.0 - 3.0 For acute myocardial infarction with aspirin therapy: 2.0 - 3.0 For acute myocardial infarction without aspirin therapy: 3.0 - 4.0 For patients with mechanical prosthetic heart valves: 2.5 - 3.5 Prothrombin Time Whole Bld P OC Reviewed date:04/05/2024 12:02:10 PM Interpretation: Performing Lab:[facility], [address] [place] [phone] Notes/Report: Prothrombin Time Whole Bld POC 28.1 11.1-13.5 sec Complete Blood Count Auto Di ff Reviewed date:04/20/2024 04:14:26 PM Interpretation: Performing Lab:[facility], [address] [place] [address] Notes/Report: White Blood Count 5.8 4.8-10.8 X10*3/uL Red Blood Count 4.13 4.60-5.80 X10*6/uL Hemoglobin 13.4 14.0-18.0 g/dl Hematocrit 40.3 42.0-52.0 % Mean Corpuscular Volume 97.6 80.0-98.0 fL Mean Corpuscular Hemoglobin 32.4 27.0-33.0 pg Mean Corpuscular HGB Conc 33.3 31.0-36.0 g/dl Red Cell Distribution Width 12.6 11.0-16.0 % Platelet Count 197 160-400 X10*3/uL Mean Platelet Volume 10.8 9.4-12.4 fL Neutrophils Percent Auto 61.7 45-73 % Imm Gran Pct Auto 0.3 0.0-0.4 % Lymphocytes Percent Auto 22.0 20-40 % Monocytes Percent Auto 8.5 2-11 % Eosinophils Percent Auto 6.8 0-4 % Basophils Percent Auto 0.7 0-2 % NRBC Pct Auto 0.0 0.0-0.2 /100WBC Neutrophils Absolute Auto 3.6 2.0-8.3 x10*3/u L Imm Gran Abs Auto 0.02 0.00-0.03 X10*3/uL Lymphocytes Absolute Auto 1.3 1.2-4.9 X10*3/u L Monocytes Absolute Auto 0.5 0.1-1.2 X10*3/uL Eosinophils Absolute Auto 0.4 0.0-0.4 X10*3/u L Basophils Absolute Auto 0.0 0.0-0.2 X10*3/uL NRBC Abs Auto 0.000 0.0-0.012 X10*3/uL Comprehensive [place]. Panel Fa st Reviewed date:04/20/2024 04:14:26 PM Interpretation: Performing Lab:[facility], [address] [place] [phone] Notes/Report: Sodium 137 135-145 mmol/L Potassium 5.2 3.3-5.1 mmol/L Chloride 105 96-108 mmol/L Carbon Dioxide 26 22-29 mmol/L Anion Gap 11 12-20 Blood Urea Nitrogen 20 9-16 mg/dL Creatinine 1.06 0.5-1.4 mg/dL Estimated Glomerular Filt Rate > 60 NOTE: For -[place] individuals, multiply the result by 1.210. Chronic Kidney Disease: Estimated GFR < 60 mL/min/1.73m2 Severe Kidney Disease: Estimated GFR < 15 mL/min/1.73m2 Glucose Fasting 101 60-99 mg/dL A fasting glucose from 100-125 mg/dl is considered impaired (pre-diabetes). Calcium 9.5 8.4-10.2 mg/dL Bilirubin Total 0.7 0.0-1.0 mg/dL Aspartate Amino Transferase 24 5-37 U/L Alanine Aminotransferase 21 0-40 U/L Total Protein 6.6 6.5-8.0 g/dL Albumin Level 4.1 3.5-5.0 g/dL Alkaline Phosphatase 71 39-117 U/L Lipid Panel Reviewed date:04/20/2024 04:14:26 PM Interpretation: Performing Lab:[facility], [address] [place] [phone] Notes/Report: Triglycerides 112 <150 mg/dL Desirable Triglyceride: less than 150 mg/dL Borderline High Triglyceride 150-199 mg/dL High Triglyceride: 200-499 mg/dL Very High Triglyceride: greater than or equal to 5OO mg/dL Cholesterol 181 <200 mg/dL Desirable Cholesterol: less than 200 mg/dL Borderline High Cholesterol: 200-239 mg/dL High Cholesterol: greater than 239 mg/dL LDL Cholesterol Calculated 101 <100 mg/dL Desirable LDL: less than 100 mg/dL Near Optimal/Above Optimal LDL: 110-129 mg/dL Borderline High LDL: 130-159 mg/dL High LDL: 160-189 mg/dL Very High LDL: greater than or equal to 190 mg/dL HDL Cholesterol 58 >40 mg/dL Desirable HDL: greater than 40 mg/dL Note: This HDL assay may give artificially low results in patients with liver disease. Prostate Specific Antigen Reviewed date:04/20/2024 04:14:26 PM Interpretation: Performing Lab:[address] [phone] Notes/Report: Prostate Specific Antigen < 0.10 <0.05-4.0 ng/mL PSA methodology: Gee Alinity i Chemiluminescent Microparticle Immunoassay (CMIA) INR WHOLE BLOOD POC Reviewed date:05/24/2024 07:35:38 AM Interpretation: Performing Lab:[facility], [address] [place] [phone] Notes/Report: PT, INR - Anti Coag Clinic 2.3 0.9-1.1 METER #: [id number] INTERNATIONAL NORMALIZED RATIO (INR) REFERENCE RANGES Reference Range For patients not on anticoagulant therapy: 0.9 - 1.1 INR ranges for oral anticoagulant therapy: For prevention and treatment of venous thrombosis and pulmonary embolism: 2.0 - 3.0 For acute myocardial infarction with aspirin therapy: 2.0 - 3.0 For acute myocardial infarction without aspirin therapy: 3.0 - 4.0 For patients with mechanical prosthetic heart valves: 2.5 - 3.5 Prothrombin Time Whole Bld P OC Reviewed date:05/24/2024 07:35:38 AM Interpretation: Performing Lab:[facility], [address] [place] [phone] Notes/Report: Prothrombin Time Whole Bld POC 27.2 11.1-13.5 sec INR WHOLE BLOOD POC Reviewed date:06/07/2024 09:20:45 AM Interpretation: Performing Lab:[address] [phone] Notes/Report: PT, INR - Anti Coag Clinic 2.2 0.9-1.1 METER #: [id number] INTERNATIONAL NORMALIZED RATIO (INR) REFERENCE RANGES Reference Range For patients not on anticoagulant therapy: 0.9 - 1.1 INR ranges for oral anticoagulant therapy: For prevention and treatment of venous thrombosis and pulmonary embolism: 2.0 - 3.0 For acute myocardial infarction with aspirin therapy: 2.0 - 3.0 For acute myocardial infarction without aspirin therapy: 3.0 - 4.0 For patients with mechanical prosthetic heart valves: 2.5 - 3.5 Prothrombin Time Whole Bld P OC Reviewed date:06/07/2024 09:20:46 AM Interpretation: Performing Lab:[facility], [address] [place] [phone] Notes/Report: Prothrombin Time Whole Bld POC 26.3 11.1-13.5 sec INR WHOLE BLOOD POC Reviewed date:07/06/2024 08:42:47 AM Interpretation: Performing Lab:[facility], [address] [place] [phone] Notes/Report: PT, INR - Anti Coag Clinic 2.3 0.9-1.1 METER #: [id number] INTERNATIONAL NORMALIZED RATIO (INR) REFERENCE RANGES Reference Range For patients not on anticoagulant therapy: 0.9 - 1.1 INR ranges for oral anticoagulant therapy: For prevention and treatment of venous thrombosis and pulmonary embolism: 2.0 - 3.0 For acute myocardial infarction with aspirin therapy: 2.0 - 3.0 For acute myocardial infarction without aspirin therapy: 3.0 - 4.0 For patients with mechanical prosthetic heart valves: 2.5 - 3.5 Prothrombin Time Whole Bld P OC Reviewed date:07/06/2024 08:42:47 AM Interpretation: Performing Lab:[facility], [address] [place] [phone] Notes/Report: Prothrombin Time Whole Bld POC 27.6 11.1-13.5 sec Complete Blood Count Auto Di ff (Not yet reviewed by provider) Interpretation: Performing Lab:[address] [phone] Notes/Report: White Blood Count 5.9 4.8-10.8 X10*3/uL Red Blood Count 3.99 4.60-5.80 X10*6/uL Hemoglobin 12.6 14.0-18.0 g/dl Hematocrit 39.2 42.0-52.0 % Mean Corpuscular Volume 98.2 80.0-98.0 fL Mean Corpuscular Hemoglobin 31.6 27.0-33.0 pg Mean Corpuscular HGB Conc 32.1 31.0-36.0 g/dl Red Cell Distribution Width 12.8 11.0-16.0 % Platelet Count 200 160-400 X10*3/uL Mean Platelet Volume 10.7 9.4-12.4 fL Neutrophils Percent Auto 63.2 45-73 % Imm Gran Pct Auto 0.3 0.0-0.4 % Lymphocytes Percent Auto 23.1 20-40 % Monocytes Percent Auto 9.0 2-11 % Eosinophils Percent Auto 3.6 0-4 % Basophils Percent Auto 0.8 0-2 % NRBC Pct Auto 0.0 0.0-0.2 /100WBC Neutrophils Absolute Auto 3.7 2.0-8.3 x10*3/u L Imm Gran Abs Auto 0.02 0.00-0.03 X10*3/uL Lymphocytes Absolute Auto 1.4 1.2-4.9 X10*3/u L Monocytes Absolute Auto 0.5 0.1-1.2 X10*3/uL Eosinophils Absolute Auto 0.2 0.0-0.4 X10*3/u L Basophils Absolute Auto 0.1 0.0-0.2 X10*3/uL NRBC Abs Auto 0.000 0.0-0.012 X10*3/uL Comprehensive [place]. Panel Fa st (Not yet reviewed by provider) Interpretation: Performing Lab:[facility], [address] [place] [phone] Notes/Report: Sodium 140 135-145 mmol/L Potassium 5.0 3.3-5.1 mmol/L Chloride 108 96-108 mmol/L Carbon Dioxide 27 22-29 mmol/L Anion Gap 10 12-20 Blood Urea Nitrogen 21 9-16 mg/dL Creatinine 1.21 0.5-1.4 mg/dL Estimated Glomerular Filt Rate 56 Chronic Kidney Disease: Estimated GFR < 60 mL/min/1.73m2 Severe Kidney Disease: Estimated GFR < 15 mL/min/1.73m2 Glucose Fasting 108 60-99 mg/dL A fasting glucose from 100-125 mg/dl is considered impaired (pre-diabetes). Calcium 9.9 8.4-10.2 mg/dL Bilirubin Total 0.5 0.0-1.0 mg/dL Aspartate Amino Transferase 31 5-37 U/L Alanine Aminotransferase 30 0-40 U/L Total Protein 6.7 6.5-8.0 g/dL Albumin Level 4.1 3.5-5.0 g/dL Alkaline Phosphatase 65 39-117 U/L Lipid Panel (Not yet reviewe d by provider) Interpretation: Performing Lab:[facility], [address] [place] [address], [place] [address] Notes/Report: Triglycerides 80 <150 mg/dL Desirable Triglyceride: less than 150 mg/dL Borderline High Triglyceride 150-199 mg/dL High Triglyceride: 200-499 mg/dL Very High Triglyceride: greater than or equal to 5OO mg/dL Cholesterol 171 <200 mg/dL Desirable Cholesterol: less than 200 mg/dL Borderline High Cholesterol: 200-239 mg/dL High Cholesterol: greater than 239 mg/dL LDL Cholesterol Calculated 94 <100 mg/dL Desirable LDL: less than 100 mg/dL Near Optimal/Above Optimal LDL: 110-129 mg/dL Borderline High LDL: 130-159 mg/dL High LDL: 160-189 mg/dL Very High LDL: greater than or equal to 190 mg/dL HDL Cholesterol 61 >40 mg/dL Desirable HDL: greater than 40 mg/dL Note: This HDL assay may give artificially low results in patients with liver disease. Reason For Referral No Information Medications Medication SIG (Take, Route, Frequency, Duration) Notes Start Date End Date Status amLODIPine Besylate 10 MG 1 1/2 tablet O ral Once a day Active Omeprazole 20 MG TAKE 1 CAPSULE EVERY DAY Active Glucosamine Chondr 1500 Complx - as directed Orally Active Diclofenac Sodium 1 % Transdermal Active Warfarin Sodium 4 MG TAKE 4MG (1 TABLET) FRIDAY, FRIDAY, FRIDAY AND TAKE 2MG (1/2 TABLET) FRIDAY, FRIDAY, FRIDAY, FRIDAY Active Lisinopril 10 MG TAKE 1 TABLET EVERY DAY Active Rosuvastatin Calcium 10 MG TAKE 1 TABLET EVERY DAY Active Social History Tobacco Use: [...] Additional Findings: Tobacco Non-User Ex-cigaret te smoker Alcohol Screen Question Answer Notes Did you have a drink contain ing alcohol in the past year? Yes How often did you have a dri nk containing alcohol in the past year? 4 or more times a week (4 points) How many drinks did you have on a typical day when you were drinking in the past year? 1 or 2 drinks (0 point) How often did you have 6 or more drinks on one occasion in the past year? Never (0 point) Points 4 Interpretation Positive Problems Problem Type SNOMED Code ICD Code Onset Dates Problem Status W/U Status Risk Notes Problem 9239759 Former smoker (Z87.891) Active confirmed He is highly motivated not to smoke. He has a plan to prevent relapse in times of stress or illness. Problem 579194868 Overweight (E66.3) Active confirmed He has gained 1pound since his last visit. We reviewed his diet and nutrition. We reviewed his weight loss strategy. We made a plan to lose weight at a rate of one half of a pound per week to a diet restricted in fat calories and sodium. Problem Lumbar radiculopathy (111924586) Lumbar radiculopathy (M54.16) Active confirmed The low back pain has now resolved and there is no radiation. He is avoiding heavy exertion and lifting. Problem 990587428 Mixed hyperlipidemia (E78.2) Active confirmed A recent lipid profile shows his lipids to be in range. No change in his regimen was needed today. Problem 262805330 Paroxysmal atria l fibrillation (I48.0) Active confirmed His heart rate is well controlled.. His heart rate is regular with no ectopy. He is in normal sinus rhythm today. Problem 320946249 Chronic anticoagulation (Z79.01) Active confirmed He will have 3 more days of enoxaparin and then another PT/INR while on his old dose of warfarin. Problem Essential hypertension (48581034) Essential hypertension (I10) Active confirmed His blood pressure is within normal limits and no change in his regimen as needed. He will be seen frequently. Problem 479184700 Pacemaker (Z95.0) Active confirmed His pacemaker appears to be functioning well. Problem 092511369 Primary osteoarthritis of both knees (M17.0) Active confirmed The scars on both knees have healed. He has much less pain but mild crepitus. Problem 305851171 History of prostate cancer (Z85.46) Active confirmed His PSA is been undetectable and there is no sign of recurrent prostate cancer at this time. 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 He will see his compliance testing analyst, Dr. Giles, tomorrow. Vital Signs Heart Rate 71 /min 04/21/2024 Temperature 97.6 degrees Fahrenheit 04/21/2024 Blood pressure diastolic 58 mm Hg 04/21/2024 Height 67 in 04/21/2024 Blood pressure systolic 134 mm Hg 04/21/2024 Weight 173 lbs 04/21/2024 BMI 27.09 kg/m2 04/21/2024 Encounters Encounter Location Date Provider Diagnosis Manolo Barton III, MD [address] [place] [address] [address] [place] [phone] 08/12/2023 Manolo Barton Essential hypertensi on I10 ; Mixed hyperlipidemia E78.2 ; Primary osteoarthritis of both knees M17.0 ; Paroxysmal atrial fibrillation I48.0 ; Chronic anticoagulation Z79.01 ; History of prostate cancer Z85.46 ; Pacemaker Z95.0 ; S/P TAVR (transcatheter aortic valve replacement) Z95.2 and Former smoker Z87.891 Manolo Barton III, MD [address] [place] [address] [address] [phone] 04/21/2024 Manolo Barton Essential hypertensi on I10 ; Mixed hyperlipidemia E78.2 ; Primary osteoarthritis of both knees M17.0 ; Paroxysmal atrial fibrillation I48.0 ; Chronic anticoagulation Z79.01 ; Overweight E66.3 ; Lumbar radiculopathy M54.16 ; Former smoker Z87.891 ; S/P TAVR (transcatheter aortic valve replacement) Z95.2 and History of prostate cancer Z85.46 Assessments Encounter Date Diagnosis (ICD Code) Assessment Notes Treat ment Notes Treatment Clinical Notes 08/12/2023 Mixed hyperlipidemia (ICD-10 - E78.2) A recent lipid profile shows his lipids to be in range. No change in his regimen was needed today. 08/12/2023 Essential hypertensi on (ICD-10 - I10) His blood pressure is 130/40 and no change in his regimen as needed. He will be seen frequently. 04/21/2024 Mixed hyperlipidemia (ICD-10 - E78.2) A recent lipid profile shows his lipids to be in range. No change in his regimen was needed today. 04/21/2024 Essential hypertensi on (ICD-10 - I10) His blood pressure is within normal limits and no change in his regimen as needed. He will be seen frequently. 08/12/2023 Primary osteoarthrit is of both knees (ICD-10 - M17.0) The scars on both knees have healed. He has much less pain but mild crepitus. 04/21/2024 Primary osteoarthrit is of both knees (ICD-10 - M17.0) The scars on both knees have healed. He has much less pain but mild crepitus. 08/12/2023 Paroxysmal atrial fibrillation (ICD-10 - I48.0) His heart rate is well controlled.. His heart rate is regular with no ectopy. 04/21/2024 Paroxysmal atrial fibrillation (ICD-10 - I48.0) His heart rate is well controlled.. His heart rate is regular with no ectopy. He is in normal sinus rhythm today. 08/12/2023 Chronic anticoagulation (ICD-10 - Z79.01) He will have 3 more days of enoxaparin and then another PT/INR while on his old dose of warfarin. 04/21/2024 Chronic anticoagulation (ICD-10 - Z79.01) He will have 3 more days of enoxaparin and then another PT/INR while on his old dose of warfarin. 08/12/2023 History of prostate cancer (ICD-10 - Z85.46) His PSA has been normal and there is no sign of recurrent prostate cancer at this time. 04/21/2024 Overweight (ICD-10 - E66.3) He has gained 1pound since his last visit. We reviewed his diet and nutrition. We reviewed his weight loss strategy. We made a plan to lose weight at a rate of one half of a pound per week to a diet restricted in fat calories and sodium. 08/12/2023 Pacemaker (ICD-10 - Z95.0) His pacemaker appears to be functioning well. 04/21/2024 Lumbar radiculopathy (ICD-10 - M54.16) The low back pain has now resolved and there is no radiation. He is avoiding heavy exertion and lifting. 08/12/2023 S/P TAVR (transcatheter aortic valve replacement) (ICD-10 - Z95.2) The aortic valve appears to be functioning normally. He will see his compliance testing analyst, Dr. Giles, tomorrow. 04/21/2024 Former smoker (ICD-1 0 - Z87.891) He is highly motivated not to smoke. He has a plan to prevent relapse in times of stress or illness. 08/12/2023 Former smoker (ICD-1 0 - Z87.891) He is highly motivated not to smoke. He has a plan to prevent relapse in times of stress or illness. 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 He will see his compliance testing analyst, Dr. Giles, tomorrow. 04/21/2024 History of prostate cancer (ICD-10 - Z85.46) His PSA is been undetectable and there is no sign of recurrent prostate cancer at this time. Plan Of Treatment Pending Test Test Name Order Date PROFILE, FASTING (COMPREHENSIVE METABOLI C) 07/26/2020 PROFILE, FASTING (COMPREHENSIVE METABOLI C) 07/18/2021 PROFILE, FASTING (COMPREHENSIVE METABOLI C) 03/15/2020 PROFILE, FASTING (COMPREHENSIVE METABOLI C) 07/11/2022 PROFILE, FASTING (COMPREHENSIVE METABOLI C) 04/21/2024 PROFILE, FASTING (COMPREHENSIVE METABOLI C) 03/16/2021 PROFILE, FASTING (COMPREHENSIVE METABOLI C) 04/04/2022 PROFILE, FASTING (COMPREHENSIVE METABOLI C) 08/12/2023 PROFILE, FASTING (COMPREHENSIVE METABOLI C) 12/25/2020 PROFILE, FASTING (COMPREHENSIVE METABOLI C) 01/02/2022 LIPID PANEL 12/25/2020 LIPID PANEL 01/02/2022 LIPID PANEL 07/26/2020 LIPID PANEL 07/18/2021 LIPID PANEL 03/15/2020 LIPID PANEL 07/11/2022 LIPID PANEL 03/16/2021 LIPID PANEL 04/04/2022 PSA, TOTAL 04/04/2022 PSA, TOTAL 12/25/2020 PSA, TOTAL 01/02/2022 PSA, TOTAL 07/26/2020 PSA, TOTAL 03/15/2020 PSA, TOTAL 07/11/2022 PSA, TOTAL 08/12/2023 PSA, TOTAL+FREE 07/18/2021 CBC w DIFF 07/11/2022 CBC w DIFF 03/16/2021 CBC w DIFF 08/12/2023 CBC w DIFF 04/04/2022 CBC w DIFF 12/25/2020 CBC w DIFF 01/02/2022 CBC w DIFF 07/26/2020 CBC w DIFF 07/18/2021 CBC w DIFF 03/15/2020 XR SACRUM &/OR COCCYX 02/04/2023 XR SACROILIAC JOINTS 3 VIEWS 02/04/2023 CBC WITH AUTO DIFF 04/21/2024 Complete Blood Count Auto Diff Comprehensive [place]. Panel Fast Lipid Panel 08/12/2023 Lipid Panel 07/21/2024 Lipid Panel 04/21/2024 XR pelvis min 3V 02/04/2023 Next Appt Details Provider Name:Manolo Barton, 07/22/2024 09:00:00 AM, [address] [place] [address] [address], [place], [phone], Provider Name:Manolo Barton, 04/26/2025 02:30:00 PM, [address] [place] [address] [address], [place], [phone], Insurance Providers Payer Name Payer Address Payer Phone Subscriber Number Group Number Insured Name Patient Relationship to Insured Coverage Start Date Coverage End Date MEDICARE NGS [address] [place] [address] [id number] Donny Melgar Self - patient is the insured [facility] [address] [place], [place] [id number] [phone] [id number] Donny Melgar Self - patient is the insured Medical (General) History Medical History History ICD Code Essential hypertension I10 hyperlipidemia paroxysmal atrial fibrillation chronic anticoagulation pacemaker implantation bilateral cataracts degenerative joint disease right shoulde r history of prostate cancer 2001 valvular heart disease TAVR 2019 former smoker overweight 2/6 diastolic murmur Surgical History Surgery Date(Month/Year) Right hand Carpal tunnel Surgery 11/2023 Complete dental extractions 04/17/21 laser surgery right eye 07/2020 left [address] total replacement Dr. Isaac 05/2020 Prostate removed 2000 pacemaker replaced 2017 Aortic valve replaced at [facility]: biopr osthetic TAVR 05/2019
--- OUTSIDE RECORDS SUMMARY | 2024-07-21 23:11 | XMS_ITS ---
Author Organization Manolo Barton III, MD Address [address] [place] [address] DR WOLF Bakari [place] [id number] Care Team Providers Care Telecommunications Facility Examiner Name Role Phone Manolo Barton Primary Care Provider [phone] Allergies Allergen (clinical drug ingredient) Drug/Non Drug [...] 0.2 - 1.3 BLD 50 Negative - REASON FOR VISIT annual exam Medications Medication SIG (Take, Route, Frequency, Duration) Notes Start Date End Date Status amLODIPine Besylate 10 MG 1 1/2 tablet O ral Once a day Active Glucosamine Chondr 1500 Complx - as directed Orally Active Diclofenac Sodium 1 % Transdermal Active Lisinopril 10 MG TAKE 1 TABLET EVERY DAY Active Rosuvastatin Calcium 10 MG TAKE 1 TABLET EVERY DAY Active Omeprazole 20 MG TAKE 1 CAPSULE EVERY DAY Active Warfarin Sodium 4 MG TAKE 4MG (1 TABLET) FRIDAY, FRIDAY, FRIDAY AND TAKE 2MG (1/2 TABLET) FRIDAY, FRIDAY, FRIDAY, FRIDAY Active Social History Tobacco Use: Social History [...] Never (0 point) Points 4 Interpretation Positive Vital Signs Temperature 97.6 degrees Fahrenheit 04/21/20 24 Blood pressure systolic 134 mm Hg 04/21/20 24 Blood pressure diastolic 58 mm Hg 024 Heart Rate 71 /min 04/21/2024 Height 67 in 04/21/2024 Weight 173 lbs 04/21/2024 BMI 27.09 kg/m2 04/21/2024 Encounters Encounter Location Date Provider Diagnosis Manolo Barton III, MD [address] [place] [address] [place] [address] 04/21/2024 Manolo Barton Essential hypertensi on I10 [...] Notes Treat ment Notes Treatment Clinical Notes 04/21/2024 Essential hypertensi on (ICD-10 - I10) His blood pressure is within normal limits and no change in his regimen as needed. He will be seen frequently. 04/21/2024 Mixed hyperlipidemia (ICD-10 - E78.2) A recent lipid profile shows his lipids to be in range. No change in his regimen was needed today. 04/21/2024 Primary osteoarthrit is of both knees (ICD-10 - M17.0) The scars on both knees have healed. He has much less pain but mild crepitus. 04/21/2024 Paroxysmal atrial fibrillation (ICD-10 - I48.0) His heart rate is well controlled.. His heart rate is regular with no ectopy. He is in normal sinus rhythm today. 04/21/2024 Chronic anticoagulation (ICD-10 - Z79.01) He will have 3 more days of enoxaparin and then another PT/INR while on his old dose of warfarin. 04/21/2024 Overweight (ICD-10 - E66.3) He has gained 1pound since his last visit. We reviewed his diet and nutrition. We reviewed his weight loss strategy. We made a plan to lose weight at a rate of one half of a pound per week to a diet restricted in fat calories and sodium. 04/21/2024 Lumbar radiculopathy (ICD-10 - M54.16) The low back pain has now resolved and there is no radiation. He is avoiding heavy exertion and lifting. 04/21/2024 Former smoker (ICD-1 0 - Z87.891) He is highly motivated not to smoke. He has a plan to prevent relapse in times of stress or illness. 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 He will see his engineering designer, Dr. Giles, tomorrow. 04/21/2024 History of prostate cancer (ICD-10 - Z85.46) His PSA is been undetectable and there is no sign of recurrent prostate cancer at this time. Plan Of Treatment Medication Medication Name Sig Start Date Stop Date Notes amLODIPine Besylate 10 MG 1 1/2 tablet Oral Once a day Glucosamine Chondr 1500 Comp lx - as directed Orally Diclofenac Sodium 1 % Transdermal Lisinopril 10 MG TAKE 1 TABLET EVERY DAY Rosuvastatin Calcium 10 MG TAKE 1 TABLET EVERY DAY Omeprazole 20 MG TAKE 1 CAPSULE EVERY DAY Warfarin Sodium 4 MG TAKE 4MG (1 TABLET) FRIDAY, FRIDAY, FRIDAY AND TAKE 2MG (1/2 TABLET) FRIDAY, FRIDAY, FRIDAY, FRIDAY Pending Test Test Name Order Date PROFILE, FASTING (COMPREHENSIVE METABOLI C) 04/21/2024 CBC WITH AUTO DIFF 04/21/2024 Lipid Panel 04/21/2024 Next Appt Details Follow Up: 3 Months, Reason: OV Provider Name:Manolo Bejaranorne, 07/22/2024 09:00:00 AM, [address] [facility] [address], [place], [phone], Provider Name:Manolo Bejaranorne, 04/26/2025 02:30:00 PM, [address] [facility], [place], [phone], Progress Notes * Donny HALE EDOB: (88 yo M)Acc No.[id number]:04/21/2024 Progress Notes Patient:?Beny Hale Provider:?Manolo Barton MD :[id number]???Age:88 Y???Sex:Male Slade e:04/21/2024 Address:[address] [place], [place] [id number] Subjective: * Chief Complaints: * ???Annual exam * HPI: ???Depression Screening:? He returns to the office at the age of 88 for his annual physical examination. He will be in [place] until August when he will then traveled to [place] for the remainder of the winter. He was in normal sinus rhythm today. He was healthy and well with no acute complaints. His blood pressure was 134/58. He has gained 1 pound in hhis body mass index is 27. His appetite is good. He complains of nocturia once a night. His bowel movements have been regular. He denies any recent chest pain tachycardia or bleeding. ?PHQ-9?Little interest or pleasure in doing things?Not at all ?Feeling down, depressed, or hopeless?Not at all ?Trouble falling or staying asleep, or sleeping too much?Not at all ?Feeling tired or having little energy?Not at all ?Poor appetite or overeating?Not at all ?Feeling bad about yourself or that you are a failure, or have let yourself or your family down?Not at all ?Trouble concentrating on things, such as reading the newspaper or watching television?Not at all ?Moving or speaking so slowly that other people could have noticed; or the opposite, being so fidgety or restless that you have been moving around a lot more than usual?Not at all ?Thoughts that you would be better off or of hurting yourself in some way?Not at all ?Total Score?0 ???COVID-19 Screening:?Questions?Have you experienced fever, chills, cough, sore throat, shortness of breath, difficulty breathing, muscle aches, loss of taste or smell??No ?Have you been exposed to the virus within the last 10 days??No ?Have you travelled internationally in the last 10 days??No ?Have you been exposed to COVID-19 in the past??No ???SDOH Questions:?SDOH Questions?In the past year have you been worried about losing your housing??No ?In the past year have you or any family members you live with been unable to get any of the following when it was really needed? Check all that apply:?Decline to answer * ROS:?General/Constitutional:?pain?only normal aches and pains.?Chills?denies.?Fatigue?admits.?Fever?denies.?ENT:?Decreased hearing?in both ears.?Respiratory:?Cough?denies.?Cardiovascular:?Chest pain with exertion?denies.?Dyspnea on exertion?with prolonged activity.?Shortness of breath?that is mild.?Gastrointestinal:?Constipation?occasional.?Decreased appetite?denies.?Diarrhea?denies.?Heartburn?denies.?Nausea?denies.?Rectal bleeding?denies.?Vomiting?denies.?Hematology:?bruising?denies.?petechiae?denies.?Swollen glands?none have been noted.?Genitourinary:?Frequent urination?once a night.?Musculoskeletal:?Muscle aches?denies.?Painful joints?Both knees.?Sciatica?denies.?Weakness?denies.?Skin:?Itching?denies.?Rash?denies.?Skin lesion(s)?denies.?Neurologic:?Difficulty speaking?denies.?Dizziness?denies.?Headache?denies.?Low back pain?that is chronic.?Psychiatric:?Depressed mood?denies.? * Medical History:? * Surgical History:?Aortic rosanne ve replaced at [facility]: bioprosthetic TAVR 05/2019pacemaker replaced 2018Prostate removed 2000left knee total replacement Dr. Isaac 05/2020laser surgery right eye 07/2020Complete dental extractions 04/17/21Right hand Carpal tunnel Surgery 11/2023 * Hospitalization/Major Diagno stic Procedure:?Denies Past Hospitalization [...] 10 years ?Additional Findings: Tobacco Non-User?Ex-cigarette smoker ???Drugs/Alcohol:?Drugs?Have you used drugs other than those for medical reasons in the past 12 months??No ?Alcohol Screen?Did you have a drink containing alcohol in the past year??Yes ?How often did you have a drink containing alcohol in the past year??4 or more times a week (4 points) ?How many drinks did you have on a typical day when you were drinking in the past year??1 or 2 drinks (0 point) ?How often did you have 6 or more drinks on one occasion in the past year??Never (0 point) ?Points?4 ?Interpretation?Positive ???He lives in [facility] and 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 He has no toxic exposures. He is a . He does not smoke or drink. * Medications:?TakingGlucosami ne Chondr 1500 Complx - Capsule as directed Orally amLODIPine Besylate 10 MG Tablet 1 1/2 tablet Oral Once a dayDiclofenac Sodium 1 % Gel Transdermal Rosuvastatin Calcium 10 MG Tablet TAKE 1 TABLET EVERY DAY Lisinopril 10 MG Tablet TAKE 1 TABLET EVERY DAY Warfarin Sodium 4 MG Tablet TAKE 4MG (1 TABLET) FRIDAY, FRIDAY, FRIDAY AND TAKE 2MG (1/2 TABLET) FRIDAY, FRIDAY, FRIDAY, FRIDAY Omeprazole 20 MG Capsule Delayed Release TAKE 1 CAPSULE EVERY DAY Medication List reviewed and reconciled with the patientTaking Glucosamine Chondr 1500 Complx - Capsule as directed Orally Taking amLODIPine Besylate 10 MG Tablet 1 1/2 tablet Oral Once a dayTaking Diclofenac Sodium 1 % Gel Transdermal Taking Rosuvastatin Calcium 10 MG Tablet TAKE 1 TABLET EVERY DAY Taking Lisinopril 10 MG Tablet TAKE 1 TABLET EVERY DAY Taking Warfarin Sodium 4 MG Tablet TAKE 4MG (1 TABLET) FRIDAY, FRIDAY, FRIDAY AND TAKE 2MG (1/2 TABLET) FRIDAY, FRIDAY, FRIDAY, FRIDAY Taking Omeprazole 20 MG Capsule Delayed Release TAKE 1 CAPSULE EVERY DAY Medication List reviewed and reconciled with the patient * Allergies:?Sulfacetamideno[A llergies Verified] Objective: * Vitals:?Ht: 67, Wt:173, BMI: 27.09, BP:134/58, HR:71, Temp:97.6, Wt-k.47. * ???Past Orders: Lab:Prothrombin Time Whole B ld POC * Order Date 04/05/2024 03/08/2024 02/09/2024 Prothrombin Time Whole Bld POC 28.1?H (Ref Range: 11.1-13.5 sec) 29.2?H (Ref Range: 11.1-13.5 sec) 29.2?H (Ref Range: 11.1-13.5 sec) * Lab:INR WHOLE BLOOD POC * Order Date 04/05/2024 03/08/2024 02/09/2024 INR WHOLE BLOOD POC 2.3?H (Ref Range: 0.9-1.1) 2.4?H (Ref Range: 0.9-1.1) 2.4?H (Ref Range: 0.9-1.1) * Lab:Lipid Panel * Order Date 04/20/2024 01/16/2023 07/08/2022 Triglycerides 112 (Ref Range: <150 mg/dL) 164 (Ref Range: mg/dL) 199 (Ref Range: mg/dL) Cholesterol 181 (Ref Range: <200 mg/dL) 207 (Ref Range: mg/dL) 238 (Ref Range: mg/dL) LDL Cholesterol Calculated 101?H (Ref Range: <100 mg/dL) 120 (Ref Range: mg/dl) 132 (Ref Range: mg/dl) HDL Cholesterol 58 (Ref Range: >40 mg/dL) 55 (Ref Range: mg/dL) 67 (Ref Range: mg/dL) * Lab:Comprehensive [place]. Pane l Fast * Order Date 04/20/2024 01/16/2023 07/08/2022 Sodium 137 (Ref Range: 135-145 mmol/L) 140 (Ref Range: 135-145 mmol/L) 138 (Ref Range: 135-145 mmol/L) Bilirubin Total 0.7 (Ref Range: 0.0-1.0 mg/dL) 0.6 (Ref Range: 0.0-1.0 mg/dL) 0.4 (Ref Range: 0.0-1.0 mg/dL) Aspartate Amino Transferase 24 (Ref Range: 5-37 U/L) 34 (Ref Range: 5-37 U/L) 33 (Ref Range: 5-37 U/L) Alanine Aminotransferase 21 (Ref Range: 0-40 U/L) 31 (Ref Range: 0-40 U/L) 34 (Ref Range: 0-40 U/L) Total Protein 6.6 (Ref Range: 6.5-8.0 g/dL) 6.8 (Ref Range: 6.5-8.0 g/dL) 7.2 (Ref Range: 6.5-8.0 g/dL) Albumin Level 4.1 (Ref Range: 3.5-5.0 g/dL) 4.1 (Ref Range: 3.5-5.0 g/dL) 4.5 (Ref Range: 3.5-5.0 g/dL) Alkaline Phosphatase 71 (Ref Range: 39-117 U/L) 90 (Ref Range: 39-117 U/L) 83 (Ref Range: 39-117 U/L) Potassium 5.2?H (Ref Range: 3.3-5.1 mmol/L) 4.8 (Ref Range: 3.3-5.1 mmol/L) 4.8 (Ref Range: 3.3-5.1 mmol/L) Chloride 105 (Ref Range: 96-108 mmol/L) 106 (Ref Range: 96-108 mmol/L) 103 (Ref Range: 96-108 mmol/L) Carbon Dioxide 26 (Ref Range: 22-29 mmol/L) 25 (Ref Range: 22-29 mmol/L) 25 (Ref Range: 22-29 mmol/L) Anion Gap 11?L (Ref Range: 12-20) 14 (Ref Range: 12-20) 15 (Ref Range: 12-20) Blood Urea Nitrogen 20?H (Ref Range: 9-16 mg/dL) 20?H (Ref Range: 9-16 mg/dL) 25?H (Ref Range: 9-16 mg/dL) Creatinine 1.06 (Ref Range: 0.5-1.4 mg/dL) 1.30 (Ref Range: 0.5-1.4 mg/dL) 1.23 (Ref Range: 0.5-1.4 mg/dL) Estimated Glomerular Filt Rate > 60 52 56 Glucose Fasting 101?H (Ref Range: 60-99 mg/dL) 100?H (Ref Range: 60-99 mg/dL) 103?H (Ref Range: 60-99 mg/dL) Calcium 9.5 (Ref Range: 8.4-10.2 mg/dL) 9.7 (Ref Range: 8.4-10.2 mg/dL) 9.8 (Ref Range: 8.4-10.2 mg/dL) * Lab:Complete Blood Count Aut o Diff * Order Date 04/20/2024 01/16/2023 07/08/2022 White Blood Count 5.8 (Ref Range: 4.8-10.8 X10*3/uL) 7.3 (Ref Range: 4.8-10.8 X10*3/uL) 6.1 (Ref Range: 4.8-10.8 X10*3/uL) Red Blood Count 4.13?L (Ref Range: 4.60-5.80 X10*6/uL) 4.22?L (Ref Range: 4.60-5.80 X10*6/uL) 4.45?L (Ref Range: 4.60-5.80 X10*6/uL) Hemoglobin 13.4?L (Ref Range: 14.0-18.0 g/dl) 13.5?L (Ref Range: 14.0-18.0 g/dl) 14.0 (Ref Range: 14.0-18.0 g/dl) Hematocrit 40.3?L (Ref Range: 42.0-52.0 %) 41.0?L (Ref Range: 42.0-52.0 %) 43.3 (Ref Range: 42.0-52.0 %) Mean Corpuscular Volume 97.6 (Ref Range: 80.0-98.0 fL) 97.2 (Ref Range: 80.0-98.0 fL) 97.3 (Ref Range: 80.0-98.0 fL) Mean Corpuscular Hemoglobin 32.4 (Ref Range: 27.0-33.0 pg) 32.0 (Ref Range: 27.0-33.0 pg) 31.5 (Ref Range: 27.0-33.0 pg) Mean Corpuscular HGB Conc 33.3 (Ref Range: 31.0-36.0 g/dl) 32.9 (Ref Range: 31.0-36.0 g/dl) 32.3 (Ref Range: 31.0-36.0 g/dl) Red Cell Distribution Width 12.6 (Ref Range: 11.0-16.0 %) 13.0 (Ref Range: 11.0-16.0 %) 12.5 (Ref Range: 11.0-16.0 %) Platelet Count 197 (Ref Range: 160-400 X10*3/uL) 220 (Ref Range: 160-400 X10*3/uL) 230 (Ref Range: 160-400 X10*3/uL) Mean Platelet Volume 10.8 (Ref Range: 9.4-12.4 fL) 10.3 (Ref Range: 9.4-12.4 fL) 10.3 (Ref Range: 9.4-12.4 fL) Neutrophils Percent Auto 61.7 (Ref Range: 45-73 %) 69.0 (Ref Range: 45-73 %) 65.1 (Ref Range: 45-73 %) Imm Gran Pct Auto 0.3 (Ref Range: 0.0-0.4 %) 0.5?H (Ref Range: 0.0-0.4 %) 0.5?H (Ref Range: 0.0-0.4 %) Lymphocytes Percent Auto 22.0 (Ref Range: 20-40 %) 19.3?L (Ref Range: 20-40 %) 22.2 (Ref Range: 20-40 %) Monocytes Percent Auto 8.5 (Ref Range: 2-11 %) 8.5 (Ref Range: 2-11 %) 8.7 (Ref Range: 2-11 %) Eosinophils Percent Auto 6.8?H (Ref Range: 0-4 %) 2.2 (Ref Range: 0-4 %) 2.8 (Ref Range: 0-4 %) Basophils Percent Auto 0.7 (Ref Range: 0-2 %) 0.5 (Ref Range: 0-2 %) 0.7 (Ref Range: 0-2 %) NRBC Pct Auto 0.0 (Ref Range: 0.0-0.2 /100WBC) 0.0 (Ref Range: 0.0-0.2 /100WBC) 0.0 (Ref Range: 0.0-0.2 /100WBC) Neutrophils Absolute Auto 3.6 (Ref Range: 2.0-8.3 x10*3/uL) 5.0 (Ref Range: 2.0-8.3 x10*3/uL) 4.0 (Ref Range: 2.0-8.3 x10*3/uL) Imm Gran Abs Auto 0.02 (Ref Range: 0.00-0.03 X10*3/uL) 0.04?H (Ref Range: 0.00-0.03 X10*3/uL) 0.03 (Ref Range: 0.00-0.03 X10*3/uL) Lymphocytes Absolute Auto 1.3 (Ref Range: 1.2-4.9 X10*3/uL) 1.4 (Ref Range: 1.2-4.9 X10*3/uL) 1.4 (Ref Range: 1.2-4.9 X10*3/uL) Monocytes Absolute Auto 0.5 (Ref Range: 0.1-1.2 X10*3/uL) 0.6 (Ref Range: 0.1-1.2 X10*3/uL) 0.5 (Ref Range: 0.1-1.2 X10*3/uL) Eosinophils Absolute Auto 0.4 (Ref Range: 0.0-0.4 X10*3/uL) 0.2 (Ref Range: 0.0-0.4 X10*3/uL) 0.2 (Ref Range: 0.0-0.4 X10*3/uL) Basophils Absolute Auto 0.0 (Ref Range: 0.0-0.2 X10*3/uL) 0.0 (Ref Range: 0.0-0.2 X10*3/uL) 0.0 (Ref Range: 0.0-0.2 X10*3/uL) NRBC Abs Auto 0.000 (Ref Range: 0.0-0.012 X10*3/uL) 0.000 (Ref Range: 0.0-0.012 X10*3/uL) 0.000 (Ref Range: 0.0-0.012 X10*3/uL) * Lab:URINE DIP STICK * Order Date 04/21/2024 01/17/2023 SG 1.020 (Ref Range: 1.005 - 1.025) 1.020 (Ref Range: 1.005 - 1.025) pH 5.0 (Ref Range: 5.0 - 9.0) 6.0 (Ref Range: 5.0 - 9.0) GEOVANNA Negative (Ref Range: Negative -) Negative (Ref Range: Negative -) NIT Negative (Ref Range: Negative -) Negative (Ref Range: Negative -) PRO 15 (Ref Range: Negative - Trace) 15 (Ref Range: Negative - Trace) GLU Negative (Ref Range: Negative -) Negative (Ref Range: Negative -) KET Negative (Ref Range: Negative -) Negative (Ref Range: Negative -) UBG 0.2 (Ref Range: 0.1 - 1.8) 0.2 (Ref Range: 0.1 - 1.8) ANAIS Negative (Ref Range: 0.2 - 1.3) Negative (Ref Range: 0.2 - 1.3) BLD 50 (Ref Range: Negative -) 5-10 (Ref Range: Negative -) Menstrating NR N/A * Lab:Prostate Specific Antige n * Order Date 04/20/2024 01/16/2023 07/08/2022 Prostate Specific Antigen < 0.10 (Ref Range: <0.05-4.0 ng/mL) < 0.10 (Ref Range: <0.05-4.0 ng/mL) < 0.10 (Ref Range: <0.05-4.0 ng/mL) * Examination: ???General Examination: ?GENERAL APPEARANCE:?pleasant, well [...] normal upper and lower extremities, sensory exam intact.?PSYCH:?alert, oriented , thought process logical, goal directed , speech clear , good eye contact , cooperative with exam , cognitive function intact , alert, oriented.? Assessment: * Assessment: 1.?Mixed hyperlipidemia - E7 8.2, A recent lipid profile shows his lipids to be in range. No change in his regimen was needed today.?2.?Essential hypertension - I10, His blood pressure is within normal limits and no change in his regimen as needed. He will be seen frequently.?3.?Primary osteoarthritis of both knees - M17.0, The scars on both knees have healed. He has much less pain but mild crepitus.?4.?Paroxysmal atrial fibrillation - I48.0, His heart rate is well controlled.. His heart rate is regular with no ectopy. He is in normal sinus rhythm today.?5.?Chronic anticoagulation - Z79.01, He will have 3 more days of enoxaparin and then another PT/INR while on his old dose of warfarin.?6.?Overweight - E66.3, He has gained 1pound since his last visit. We reviewed his diet and nutrition. We reviewed his weight loss strategy. We made a plan to lose weight at a rate of one half of a pound per week to a diet restricted in fat calories and sodium.?7.?Lumbar radiculopathy - M54.16, The low back pain has now resolved and there is no radiation. He is avoiding heavy exertion and lifting.?8.?Former smoker - Z87.891, He is highly motivated not to smoke. He has a plan to prevent relapse in times of stress or illness.?9.?S/P TAVR (transcatheter aortic valve replacement) - Z95.2, The aortic valve appears to be functioning normally. He will see his engineering designer, Dr. Giles, tomorrow.?10.?History of prostate cancer - Z85.46, His PSA is been undetectable and there is no sign of recurrent prostate cancer at this time.? Plan: * Treatment: 2.?Others? Continue Omeprazole Capsule Delayed Release, 20 MG, TAKE 1 CAPSULE EVERY DAY;?Continue Warfarin Sodium Tablet, 4 MG, TAKE 4MG (1 TABLET) FRIDAY, FRIDAY, FRIDAY AND TAKE 2MG (1/2 TABLET) FRIDAY, FRIDAY, FRIDAY, FRIDAY;?Continue Lisinopril Tablet, 10 MG, TAKE 1 TABLET EVERY DAY;?Continue Rosuvastatin Calcium Tablet, 10 MG, TAKE 1 TABLET EVERY DAY.?? * Labs:? * ?Lab: PROFILE, FASTING ( COMPREHENSIVE METABOLIC) ?Lab: CBC WITH AUTO DIFF ?Lab: Lipid Panel ?Lab: URINE DIP STICK ? Value Reference Range ?SG 1.020 1.005 - 1.025 * ?pH 5.0 5.0 - 9.0 * ?GEOVANNA Negative Negative - * ?NIT Negative Negative - * ?PRO 15 Negative - Trac e * ?GLU Negative Negative - * ?KET Negative Negative - * ?UBG 0.2 0.1 - 1.8 * ?ANAIS Negative 0.2 - 1.3 * ?BLD 50 Negative - * Procedure Codes:?38578 URINE -NO MICRO * Preventive Medicine:? ??Counseling:?Care goal follow-up plan:?Counseling for abnormal BMI given?Yes ?Above Normal BMI Follow-up?Dietary management education, guidance, and counseling, Dietary needs education ?Smoking/Tobacco Use?Patient counseled on the dangers of tobacco use and urged to quit.?04/21/2024 * Follow Up:?3 Months (Reason: OV) * Images: * Sign off status: Completed true * Provider:?Manolo Barton MD Date:?04/11 Generated for Romel russell/Zaire/eTransmitting on:?07/21/2024 11:10 PM EST History and Physical Notes * HPI (History of Present Illness) Category Sub-Category Detail Notes Depression Screening PHQ-9 Little inte rest or pleasure in doing things: Not at all Feeling down, depressed, or hopeless: No t at all Trouble falling or staying asleep, or sl eeping too much: Not at all Feeling tired or having little energy: N ot at all Poor appetite or overeating: Not at all Feeling bad about yourself o r that you are a failure, or have let yourself or your family down: Not at all Trouble concentrating on thi ngs, such as reading the newspaper or watching television: Not at all Moving or speaking so slowly that other people could have noticed; or the opposite, being so fidgety or restless that you have been moving around a lot more than usual: Not at all Thoughts that you would be b arvind off or of hurting yourself in some way: Not at all Total Score: 0 COVID-19 Screening Questions Have you had any new onset fever, chills, cough, congestion, sore throat, shortness of breath, muscle aches?: No Have you been exposed to the virus withi n the last 10 days?: No Have you travelled internationally in e last 10 days?: No Have you been exposed to COVID-19 in the past?: No SDOH Questions SDOH Questions In the past year have you been worried about losing your housing?: No In the past year have you or any family members you live with been unable to get any of the following when it was really needed? Check all that apply:: Decline to answer Examination Category Sub-Category Detail Notes General Examination [...] normal upper and lower extremities, sensory exam intact SKIN: no suspicious lesion s, anicteric PERIPHERAL PULSES: normal BREASTS: no masses palpable b ilaterally MUSCULOSKELETAL: extremities unremark able, no clubbing, cyanosis or edema LYMPH NODES: no enlarged lymph no connie,spleen normal RECTAL EXAM: not examined PSYCH: alert, oriented , ought process logical, goal directed , speech clear , good eye contact , cooperative with exam , cognitive function intact , alert, oriented ORAL CAVITY: normal, unremarkable
== END 2024-07-21 08:47 | disposition home or self-care (01) ==
LOC: HO.LAB 08:46
PROVIDERS: PCP Internal Medicine Medical Oncology; Visit Provider Internal Medicine Medical Oncology
DX: Z00.00 Encounter for general adult medical examination without abnormal findings (principal)
CPT/HCPCS: 36415; 80053; 80061; 85025

== ENCOUNTER 2024-08-02 08:43 | Outpatient (AMB) | payer MEDICARE, SELFPAY ==
--- OUTSIDE RECORDS SUMMARY | 2024-08-02 08:45 | XMS_ITS ---
Author Organization Manolo Barton III, MD Address [address] [place] [address] DR WOL[address] [place] [address] Care Team Providers Care Health And Social Care Teacher Name Role Phone Manolo Barton Primary Care Provider [phone] Allergies Allergen (clinical drug ingredient) Drug/Non Drug [...] Date Provider Diagnosis Manolo Barton III, MD [address] [place] [address] [place] [address] 04/21/2024 Manolo Barton Essential hypertensi on I10 [...] be functioning normally. He will see his tower loader operator, Dr. Giles, tomorrow. 04/21/2024 History of prostate [...] 3 Months, Reason: OV Provider Name:Manolo Bejaranorne, 12/14/2024 09:00:00 AM, [address] [facility] [address], [place], [address], Provider Name:Manolo Bejaranorne, 04/26/2025 02:30:00 PM, [address] [facility] [address], [place], [address], Progress Notes * Donny HALE EDOB: (88 yo M)Acc No.[id number]:04/21/2024 Progress Notes Patient:?Beny Hale Provider:?Manolo Barton MD :1935???Age:88 Y???Sex:Male Slade e:04/21/2024 Address:[address] [place], [place] [address] Subjective: * Chief Complaints: * ???Annual exam * HPI: ???Depression Screening:? He returns to the office at the age of 88 for his annual physical examination. He will be in [place] until August when he will then traveled to [place] for the remainder of the winter. 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 He has no [...] mg/dL) 67 (Ref Range: mg/dL) * Lab:[facility] [place]. Pane l Fast * Order Date 04/20/2024 [...] be functioning normally. He will see his tower loader operator, Dr. Giles, tomorrow.?10.?History of prostate cancer - [...] * ?BLD 50 Negative - * Procedure Codes:?57681 URINE -NO MICRO * Preventive Medicine:? ??Counseling:?Care goal follow-up plan:?Counseling for abnormal BMI given?Yes ?Above Normal BMI Follow-up?Dietary management education, guidance, and counseling, Dietary needs education ?Smoking/Tobacco Use?Patient counseled on the dangers of tobacco use and urged to quit.?04/21/2024 * Follow Up:?3 Months (Reason: OV) * Images: * Sign off status: Completed true * Provider:?Manolo Barton MD Date:?04/11 Generated for Romel russell/Zaire/eTransmitting on:?08/02/2024 08:44 AM EST History and Physical Notes * HPI [...]
--- OUTSIDE RECORDS SUMMARY | 2024-08-02 08:45 | XMS_ITS | Patient Health Record ---
Author Organization Manolo Barton III, MD Address [address] [place] [address] [place] [address] Care Team Providers Care Theology Teacher Name Role Phone Manolo Barton Primary [...] POC Reviewed date:08/17/2023 06:55:45 PM Interpretation: Performing Lab:[facility], [address] [place] [address] Notes/Report: PT, INR - [facility] 2.4 0.9-1.1 METER #: [id number] INTERNATIONAL NORMALIZED RATIO (INR) REFERENCE RANGES Reference [...] OC Reviewed date:08/17/2023 06:55:45 PM Interpretation: Performing Lab:[facility], [address] [place] [address] Notes/Report: Prothrombin Time Whole Bld POC 29.0 11.1-13.5 sec INR WHOLE BLOOD POC Reviewed date:01/09/2024 08:46:27 PM Interpretation: Performing Lab:[facility], [address] [place] [phone] Notes/Report: PT, INR - [facility]ag Clinic 2.3 0.9-1.1 METER #: [id number] INTERNATIONAL NORMALIZED RATIO (INR) REFERENCE RANGES Reference [...] OC Reviewed date:01/09/2024 08:46:27 PM Interpretation: Performing Lab:[facility], [address] [place] [address] Notes/Report: Prothrombin Time Whole Bld POC 27.4 11.1-13.5 sec INR WHOLE BLOOD POC Reviewed date:02/09/2024 04:23:18 PM Interpretation: Performing Lab:[facility], [address] [place] [address] Notes/Report: PT, INR - [facility]ag Clinic 2.4 0.9-1.1 METER #: [id number] INTERNATIONAL NORMALIZED RATIO (INR) REFERENCE RANGES Reference [...] OC Reviewed date:02/09/2024 04:23:19 PM Interpretation: Performing Lab:[facility], [address] [place] [phone] Notes/Report: Prothrombin Time Whole Bld POC 29.2 11.1-13.5 sec INR WHOLE BLOOD POC Reviewed date:03/10/2024 01:09:30 PM Interpretation: Performing Lab:[facility], [address] [place] [address] Notes/Report: PT, INR - [facility]ag Clinic 2.4 0.9-1.1 METER #: [id number] INTERNATIONAL NORMALIZED RATIO (INR) REFERENCE RANGES Reference [...] OC Reviewed date:03/10/2024 01:09:30 PM Interpretation: Performing Lab:[facility], [address] [place] [phone] Notes/Report: Prothrombin Time Whole Bld POC 29.2 11.1-13.5 sec INR WHOLE BLOOD POC Reviewed date:04/05/2024 12:02:10 PM Interpretation: Performing Lab:[facility], [address] [place] [address] Notes/Report: PT, INR - Anti Coag Clinic 2.3 0.9-1.1 METER #: [id number] INTERNATIONAL NORMALIZED RATIO (INR) REFERENCE RANGES Reference [...] OC Reviewed date:04/05/2024 12:02:10 PM Interpretation: Performing Lab:[facility], [address] [place] [address] Notes/Report: Prothrombin Time Whole Bld POC 28.1 11.1-13.5 sec Complete Blood Count Auto Di ff Reviewed date:04/20/2024 04:14:26 PM Interpretation: Performing Lab:[facility], [address] [place] [address] Notes/Report: White Blood Count 5.8 4.8-10.8 X10*3/uL [...] NRBC Abs Auto 0.000 0.0-0.012 X10*3/uL [facility] [place]. Panel Fa st Reviewed date:04/20/2024 04:14:26 PM Interpretation: Performing Lab:[facility], [address] [place] [address] Notes/Report: Sodium 137 135-145 mmol/L Potassium 5.2 3.3-5.1 mmol/L Chloride 105 96-108 mmol/L Carbon Dioxide 26 22-29 mmol/L Anion Gap 11 12-20 Blood Urea Nitrogen 20 9-16 mg/dL Creatinine 1.06 0.5-1.4 mg/dL Estimated Glomerular Filt Rate > 60 NOTE: For -Malagasy individuals, multiply the result by 1.210. Chronic [...] Panel Reviewed date:04/20/2024 04:14:26 PM Interpretation: Performing Lab:[facility], [address] [place] [phone] Notes/Report: Triglycerides 112 <150 mg/dL Desirable Triglyceride: [...] Antigen Reviewed date:04/20/2024 04:14:26 PM Interpretation: Performing Lab:[address] [address] Notes/Report: Prostate Specific Antigen < 0.10 <0.05-4.0 ng/mL PSA methodology: Gee Alinity i Chemiluminescent Microparticle Immunoassay (CMIA) INR WHOLE BLOOD POC Reviewed date:05/24/2024 07:35:38 AM Interpretation: Performing Lab:[facility], [address] [place] [phone] Notes/Report: PT, INR - Anti Coag Clinic 2.3 0.9-1.1 METER #: [id number] INTERNATIONAL NORMALIZED RATIO (INR) REFERENCE RANGES Reference [...] OC Reviewed date:05/24/2024 07:35:38 AM Interpretation: Performing Lab:[facility], [address] [place] [phone] Notes/Report: Prothrombin Time Whole Bld POC 27.2 11.1-13.5 sec INR WHOLE BLOOD POC Reviewed date:06/07/2024 09:20:45 AM Interpretation: Performing Lab:[address] [address] Notes/Report: PT, INR - Anti Coag Clinic 2.2 0.9-1.1 METER #: [id number] INTERNATIONAL NORMALIZED RATIO (INR) REFERENCE RANGES Reference [...] OC Reviewed date:06/07/2024 09:20:46 AM Interpretation: Performing Lab:[facility], [address] [place] [phone] Notes/Report: Prothrombin Time Whole Bld POC 26.3 11.1-13.5 sec INR WHOLE BLOOD POC Reviewed date:07/06/2024 08:42:47 AM Interpretation: Performing Lab:[facility], [address] [place] [address] Notes/Report: PT, INR - Anti Coag Clinic 2.3 0.9-1.1 METER #: [id number] INTERNATIONAL NORMALIZED RATIO (INR) REFERENCE RANGES Reference [...] OC Reviewed date:07/06/2024 08:42:47 AM Interpretation: Performing Lab:[facility], [address] [place] [phone] Notes/Report: Prothrombin Time Whole Bld POC 27.6 11.1-13.5 sec Complete Blood Count Auto Di ff Reviewed date:07/22/2024 09:27:36 AM Interpretation: Performing Lab:[address] [address] Notes/Report: White Blood Count 5.9 4.8-10.8 X10*3/uL [...] NRBC Abs Auto 0.000 0.0-0.012 X10*3/uL [facility] [place]. Panel Fa st Reviewed date:07/22/2024 09:27:36 AM Interpretation: Performing Lab:[facility], [address] [place] [phone] Notes/Report: Sodium 140 135-145 mmol/L Potassium 5.0 [...] Alkaline Phosphatase 65 39-117 U/L Lipid Panel Reviewed date:07/22/2024 09:27:36 AM Interpretation: Performing Lab:[facility], [address] [place] [phone] Notes/Report: Triglycerides 80 <150 mg/dL Desirable Triglyceride: [...] Start Date End Date Status amLODIPine Besylate 5 MG 1 tablet Orally Once a day Taking it w/ 10mg Active Warfarin Sodium 4 MG TAKE 4MG (1 TABLET) FRIDAY, FRIDAY, FRIDAY AND TAKE 2MG (1/2 TABLET) FRIDAY, FRIDAY, FRIDAY, FRIDAY Active Omeprazole 20 MG TAKE 1 CAPSULE EVERY DAY Active Rosuvastatin Calcium 10 MG TAKE 1 TABLET EVERY DAY Active Lisinopril 20 MG 1 tablet Orally Once a day for 90 days 07/22/2024 Active Glucosamine Chondr 1500 Complx - as directed Orally Active amLODIPine Besylate 10 MG 1 1/2 tablet Oral Once a day Active Diclofenac Sodium 1 % Transdermal Active [...] Problem Status W/U Status Risk Notes Problem 3560198 Former smoker (Z87.891) Active confirmed He is highly motivated not to smoke. He has a plan to prevent relapse in times of stress or illness. Problem 061182505 Overweight (E66.3) Active confirmed His body mass index is 27. We discussed his diet and nutrition. He will keep his weight stable through the holiday season and then attempt to lose weight at a rate of one half of a pound per week while being active in the warm [place] weather. Problem Lumbar radiculopathy (751766847) Lumbar radiculopathy (M54.16) Active confirmed The low back pain has now resolved and there is no radiation. He is avoiding heavy exertion and lifting. Problem 538016230 Mixed hyperlipidemia (E78.2) Active confirmed His lipids are currently well controlled and no change in his regimen as necessary. We discussed ways to reduce his weight and consume a healthy diet. Problem 602772471 Paroxysmal atria l fibrillation (I48.0) Active confirmed His heart rate is well controlled.. His heart rate is regular with no ectopy. He is in normal sinus rhythm today. Problem 722566662 Chronic anticoagulation (Z79.01) Active confirmed He will have 3 more days of enoxaparin and then another PT/INR while on his old dose of warfarin. Problem Essential hypertension (66306619) Essential hypertension (I10) Active confirmed His blood pressure is acceptable. We discussed his systolic blood pressure. Surgery would be desirable to lower it. He is trying to make an effort to reduce sodium intake and lose weight. He will take his blood pressure at home and report weekly. Problem 666679232 Pacemaker (Z95.0) Active confirmed His pacemaker appears to be functioning well. Problem 344574912 Primary osteoarthritis of both knees (M17.0) Active confirmed The scars on both knees have healed. He has much less pain but mild crepitus. Problem 981210657 History of prostate cancer (Z85.46) Active confirmed There was no sign of prostate cancer remission. His PSA remains undetectable . 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 He will see his printer machine , Dr. Giles, tomorrow. Vital Signs Heart Rate 57 /min 07/22/2024 Temperature 97.4 degrees Fahrenheit 07/22/2024 Blood pressure diastolic 60 mm Hg 07/22/2024 Height 67 in 07/22/2024 Blood pressure systolic 140 mm Hg 07/22/2024 Weight 174 lbs 07/22/2024 BMI 27.25 kg/m2 07/22/2024 Encounters Encounter Location Date Provider Diagnosis Manolo Barton III, MD [address] [place] [address] [place] [address] 08/12/2023 Manolo Barton Essential hypertensi on I10 ; Mixed hyperlipidemia E78.2 ; Primary osteoarthritis of both knees M17.0 ; Paroxysmal atrial fibrillation I48.0 ; Chronic anticoagulation Z79.01 ; History of prostate cancer Z85.46 ; Pacemaker Z95.0 ; S/P TAVR (transcatheter aortic valve replacement) Z95.2 and Former smoker Z87.891 Manolo Barton III, MD [address] [place] [address] [place] [address] 04/21/2024 Manolo Barton Essential hypertensi on I10 ; Mixed hyperlipidemia E78.2 ; Primary osteoarthritis of both knees M17.0 ; Paroxysmal atrial fibrillation I48.0 ; Chronic anticoagulation Z79.01 ; Overweight E66.3 ; Lumbar radiculopathy M54.16 ; Former smoker Z87.891 ; S/P TAVR (transcatheter aortic valve replacement) Z95.2 and History of prostate cancer Z85.46 Manolo Barton III, MD [address] [place] [address] [place] [address] 07/22/2024 Manolo Barton Essential hypertensi on I10 ; Paroxysmal atrial fibrillation I48.0 ; Mixed hyperlipidemia E78.2 ; Overweight E66.3 ; History of prostate cancer Z85.46 ; Primary osteoarthritis of both knees M17.0 ; Pacemaker Z95.0 ; Former smoker Z87.891 ; Lumbar radiculopathy M54.16 ; S/P TAVR (transcatheter aortic valve replacement) Z95.2 and Chronic anticoagulation Z79.01 Assessments Encounter Date Diagnosis (ICD Code) Assessment [...] as needed. He will be seen frequently. 07/22/2024 Paroxysmal atrial fibrillation (ICD-10 - I48.0) His heart rate is well controlled.. His heart rate is regular with no ectopy. He is in normal sinus rhythm today. 07/22/2024 Essential hypertensi on (ICD-10 - I10) His blood pressure is acceptable. We discussed his systolic blood pressure. Surgery would be desirable to lower it. He is trying to make an effort to reduce sodium intake and lose weight. He will take his blood pressure at home and report weekly. 08/12/2023 Primary osteoarthrit is of both knees (ICD-10 - M17.0) The scars on both knees have healed. He has much less pain but mild crepitus. 04/21/2024 Primary osteoarthrit is of both knees (ICD-10 - M17.0) The scars on both knees have healed. He has much less pain but mild crepitus. 07/22/2024 Mixed hyperlipidemia (ICD-10 - E78.2) His lipids are currently well controlled and no change in his regimen as necessary. We discussed ways to reduce his weight and consume a healthy diet. 08/12/2023 Paroxysmal atrial fibrillation (ICD-10 - I48.0) His heart rate is well controlled.. His heart rate is regular with no ectopy. 04/21/2024 Paroxysmal atrial fibrillation (ICD-10 - I48.0) His heart rate is well controlled.. His heart rate is regular with no ectopy. He is in normal sinus rhythm today. 07/22/2024 Overweight (ICD-10 - E66.3) His body mass index is 27. We discussed his diet and nutrition. He will keep his weight stable through the holiday season and then attempt to lose weight at a rate of one half of a pound per week while being active in the warm [place] weather. 08/12/2023 Chronic anticoagulation (ICD-10 - Z79.01) He will have 3 more days of enoxaparin and then another PT/INR while on his old dose of warfarin. 04/21/2024 Chronic anticoagulation (ICD-10 - Z79.01) He will have 3 more days of enoxaparin and then another PT/INR while on his old dose of warfarin. 07/22/2024 History of prostate cancer (ICD-10 - Z85.46) There was no sign of prostate cancer remission. His PSA remains undetectable. 08/12/2023 History of prostate cancer (ICD-10 - [...] diet restricted in fat calories and sodium. 07/22/2024 Primary osteoarthrit is of both knees (ICD-10 - M17.0) The scars on both knees have healed. He has much less pain but mild crepitus. 08/12/2023 Pacemaker (ICD-10 - Z95.0) His pacemaker appears to be functioning well. 04/21/2024 Lumbar radiculopathy (ICD-10 - M54.16) The low back pain has now resolved and there is no radiation. He is avoiding heavy exertion and lifting. 07/22/2024 Pacemaker (ICD-10 - Z95.0) His pacemaker appears to be functioning well. 08/12/2023 S/P TAVR (transcatheter aortic valve replacement) (ICD-10 - Z95.2) The aortic valve appears to be functioning normally. He will see his printer machine, Dr. Giles, tomorrow. 04/21/2024 Former smoker (ICD-1 0 - Z87.891) He is highly motivated not to smoke. He has a plan to prevent relapse in times of stress or illness. 07/22/2024 Former smoker (ICD-1 0 - Z87.891) He [...] be functioning normally. He will see his printer machine, Dr. Giles, tomorrow. 07/22/2024 Lumbar radiculopathy (ICD-10 - M54.16) The low back pain has now resolved and there is no radiation. He is avoiding heavy exertion and lifting. 04/21/2024 History of prostate cancer (ICD-10 - Z85.46) His PSA is been undetectable and there is no sign of recurrent prostate cancer at this time. 07/22/2024 S/P TAVR (transcatheter aortic valve replacement) (ICD-10 - Z95.2) The aortic valve appears to be functioning normally. He will see his printer machine, Dr. Giles, tomorrow. 07/22/2024 Chronic anticoagulation (ICD-10 - Z79.01) He will have 3 more days of enoxaparin and then another PT/INR while on his old dose of warfarin. Plan Of Treatment Pending Test Test Name Order Date PROFILE, FASTING (COMPREHENSIVE METABOLI C) 07/22/2024 PROFILE, FASTING (COMPREHENSIVE METABOLI C) 07/26/2020 PROFILE, [...] PANEL 04/04/2022 PSA, TOTAL 04/04/2022 PSA, TOTAL 07/22/2024 PSA, TOTAL 12/25/2020 PSA, TOTAL 01/02/2022 PSA, [...] 3 VIEWS 02/04/2023 CBC WITH AUTO DIFF 07/22/2024 CBC WITH AUTO DIFF 04/21/2024 Lipid Panel 08/12/2023 Lipid Panel 07/22/2024 Lipid Panel 04/21/2024 XR pelvis min 3V 02/04/2023 Next Appt Details Provider Name:Manolo Barton, 12/14/2024 09:00:00 AM, [address] [place] [address] [address], [place], [address], Provider Name:Manolo Barton, 04/26/2025 02:30:00 PM, [address] [place] [address] [address], [place], [address], Insurance Providers Payer Name Payer Address Payer Phone Subscriber Number Group Number Insured Name Patient Relationship to Insured Coverage Start Date Coverage End Date MEDICARE NGS [address] [place] [address] [id number] Donny Melgar Self - patient is the insured [facility] [address] [place], [place] [id number] Donny Melgar Self - patient is the insured Medical (General) History Medical History History ICD Code Essential hypertension I10 hyperlipidemia paroxysmal atrial fibrillation chronic anticoagulation pacemaker implantation bilateral cataracts degenerative joint disease right shoulde r history of prostate cancer 2001 valvular heart disease TAVR 2019 former smoker overweight 2/6 diastolic murmur High Blood Pressure, Scar tissue in eye Surgical History Surgery Date(Month/Year) Aortic valve replaced at [facility]: biopr osthetic TAVR 05/2019 pacemaker replaced 2018 Prostate removed 1999 left knee total replacement Dr. Isaac 05/2020 laser surgery right eye 07/2020 Complete dental extractions 04/17/21 Right hand Carpal tunnel Surgery 11/2023 No history Hospitalization History Reason Date(Month/Year) No history
--- OUTSIDE RECORDS SUMMARY | 2024-08-02 08:45 | XMS_ITS ---
Author Organization Manolo Barton III, MD Address [address] [place] [address] [place] [address] Care Team Providers Care Non Destructive Evaluation Manager Name Role Phone Manolo Barton Primary Care Provider REASON FOR VISIT annual exam Social History Sex Assigned At : Social History Observation Description Sex Assigned At Male Encounters Encounter Location Date Provider Diagnosis Manolo Barton III, MD [address] [place] [address] [place] [address] 01/23/2024 Manolo Barton Plan Of Treatment Next Appt Details Provider Name:Manolo Barton, 12/14/2024 09:00:00 AM, [address] [place] [address] [place], [address], Provider Name:Manolo Barton, 04/26/2025 02:30:00 PM, [address] [place] [address] [place], [address], Progress Notes * Donny HALE EDOB: (88 yo M)Acc No.[id number]:01/23/2024 Progress Notes Patient:?PARKERWALTERAllen LEWISibis xiong Brandy Provider:?Manolo Barton MD :1935???Age:88 Y???Sex:Male Slade e:01/23/2024 Address:[address] [place] [address] [phone] Subjective: * Chief Complaints: [...] Barton MD Date:?01/09 Generated for Romel russell/Zaire/Sherismitting on:?08/02/2024 08:45 AM EST
--- OUTSIDE RECORDS SUMMARY | 2024-08-02 08:45 | XMS_ITS | Continuity of Care Document ---
Author Organization Lauren renteria Address [address] [facility] [place] [address] Phone Care Team Providers Care Emergency Communications Officer Name Role Phone DO Roman Lawrence Unavailable [...] TIENT VISIT, EST Lauren Childs s, [address], [place], [place], [id number] , [place] tel:[phone] [facility] Cardiac Clearance (chief complaint) Hyperlipidemia, unspecifiedNonrh eumatic aortic (valve) insufficiencyPar oxysmal atrial fibrillationOccl usion and stenosis of bilateral carotid arteriesPresence of cardiac pacemakerPresenc e of prosthetic heart valve 4 DO Teo Roman. [address], [facility], [place]. tel:[phone] Referring Provider: Teo Roman DO, [address], [place], [place], [facility]. tel:[phone] OFFICE/OUTPA TIENT VISIT, [facility] [place] s, [address], [place], [place], [id number] , tel: [phone] [facility] 1 year follow up (chief complaint) Hyperlipidemia, unspecifiedNonrh eumatic aortic (valve) insufficiencyPar oxysmal atrial fibrillationOccl usion and stenosis of bilateral carotid arteriesPresence of cardiac pacemakerPresenc e of prosthetic heart valve [address] DO Teo Roman[address], [place], [place], [facility], . tel:[phone] Referring Provider: Teo Roman DO, [address], [place], [place], [facility]. tel:[phone] [place] Data Control Clerk s, [address] [facility], [place], [place], [id number] , tel: [phone] [facility] Nonrheumatic aortic (valve) insufficiencyPre sence of cardiac pacemakerOcclusi on and stenosis of bilateral carotid arteriesPresence of prosthetic heart valveHyperlipide mercedes, unspecifiedParox ysmal atrial fibrillation Oct- 3 DO Teo Roman. [address], [facility], [place]. tel:[phone] Referring Provider: Teo Roman DO, [address], [place], [place], [facility]. tel:[phone] Family History Family Member Type Diagnosis Age At Onset No Information Payers Payer name Insurance type Covered constitution party ID Authoriza tion(s) Medicare MB [id number] [place] [facility] [id number] Social History Type Description Quantity Date Captured [...]
--- NOTE | 2024-08-02 08:50 | MHC.OFFVISCO ---
Intake Intake Visit Reasons: Anticoagulation Allergies Sulfa (Sulfonamide Antibiotics) [Sulfa (Sulfonamides)] Allergy (Mild, Verified 08/02/24 08:46) HIVES Medication List - Last Reconciled 08/02/24 by Jessica Faria RN amlodipine 15 mg PO DAILY amlodipine 5 mg PO DAILY coenzyme Q10 (Ultra CoQ10) PO cyclobenzaprine 10 mg PO Q8H PRN lisinopril 10 mg PO DAILY jhoewzbs-zlv-zcrat-vit K-lycop (One-A-Day Men's Multivitamin) 1 ea PO DAILY omeprazole 20 mg PO DAILY rosuvastatin 10 mg PO DAILY tramadol 50 mg PO Q8H PRN warfarin See Protocol 2MG X3DAYS/ 4MG X4DAYS; Nursing Note INR 1.7-?? out of therapeutic range of 2-3 Medications and supplements reviewed Patient status: pt denies missed dose Medications or supplements: amlodipine increased to 15mg Diet: same Denies any signs and symptoms of bleeding or clotting or unusual bruising Bleeding, bruising, clotting discussed Nutritional guidance given: no greens for 2 days, eat a red to raise Dose: 6mg today then cont 4mg x 3 2mg x 4 F/U INR Date : pt to [place] and will have inr check in [place] in 2 weeks- will call when back?for appt at [facility] Patient verbalizing understanding of instructions given. Anti-Coag Initial Assessment Social Hx Patient Tobacco Use Status: Former Tobacco user alcohol intake: current Alcohol intake frequency: a few times a week Coding Level of Care Code Est Patient Level 1 Diagnoses Current use of anticoagulant therapy Z79.01 Results AMB INR Fingerstick AMB INR Fingerstick 1.7 Last Edit by Jessica Faria RN on 08/02/24 08:53 interface delay Assessment & Plan Assessment & Plan (1) Current use of anticoagulant therapy: Code(s): Z79.01 - [facility] (current) use of anticoagulants Category: Medical
[2024-08-02 08:54] LABS: Prothrombin Time Whole Bld POC 20.3 sec (11.1-13.5); ~PT, ~INR - Anti Coag Clinic 1.7 (0.9-1.1)
== END 2024-08-02 09:05 | disposition home or self-care (01) ==
PROVIDERS: PCP Internal Medicine Medical Oncology; Visit Provider Internal Medicine
DX: Z79.01 Long term (current) use of anticoagulants (principal)

== ENCOUNTER → 2024-08-02 08:43 | Outpatient (BNVA) | payer MEDICARE, SELFPAY | PROVIDERS: PCP Internal Medicine Medical Oncology; Visit Provider Internal Medicine | DX: I48.20 Chronic atrial fibrillation, unspecified (principal); Z79.01 Long term (current) use of anticoagulants; Z51.81 Encounter for therapeutic drug level monitoring | CPT/HCPCS: 85610; 99211 ==

== ENCOUNTER → 2024-09-20 23:59 | Outpatient (BNV) | payer MEDICARE, SELFPAY ==
--- NOTE | 2024-09-27 12:09 | MHC.OFFVIS ---
Intake Visit Reasons: Remote ICD check-[facility] Allergies Sulfa (Sulfonamide Antibiotics) [Sulfa (Sulfonamides)] Allergy (Mild, Verified 08/02/24 08:46) HIVES [facility] Medical History (Updated 02/02/24 @ 14:36 by Doreen Nino CMA) Carpal tunnel syndrome Pacemaker Aortic stenosis Coronary artery disease Chronic atrial fibrillation Surgical History S/P TAVR (transcatheter aortic valve replacement) H/O: knee surgery History of prostate surgery Family History Mother No problems noted. Father No problems noted. Social History Alcohol intake: current Alcohol intake frequency: a few times a week Alcohol type: beer and hard liquor Patient Tobacco Use Status: Former Tobacco user Years Smoked: 10 +/- Office Procedures Cardiac Device Check Cardiac Device Check Details: PPM Battery life >7 months. [employer] 99%. Multiple AMS events due to permanent Afib. 22080-[id number] Cardiac Device Check, pacemaker dual lead Procedure code (CPT) selection complete Assessment & Plan Assessment & Plan (1) Pacemaker: Comment: [employer] [facility] dual chamber Code(s): Z95.0 - Presence of cardiac pacemaker Category: Medical Plan Orders: Orders AMB Cardiac Device Follow-up 09/20/24 Z95.0 - Presence of cardiac pacemaker Coding Level of Care Code Procedure Only Diagnoses Pacemaker Z95.0 CPT Codes Cardiac Device Check - Cardiac Device 2: 54231-[id number] Cardiac Device Check, pacemaker dual lead ([id number])
== END ==
PROVIDERS: PCP Internal Medicine Medical Oncology; Visit Provider Internal Medicine Cardiovascular Disease
DX: Z45.018 Encounter for adjustment and management of other part of cardiac pacemaker (principal)
CPT/HCPCS: 93294